=== PATIENT | male | born 1970 | race Native Hawaiian/Other Pacific Islander ===

== ENCOUNTER → 2020-09-07 09:23 | Outpatient (BNVA) | payer MEDICAID, SELFPAY | PROVIDERS: PCP Internal Medicine; Visit Provider Internal Medicine | DX: I87.1 Compression of vein (principal); Z51.81 Encounter for therapeutic drug level monitoring; Z79.01 Long term (current) use of anticoagulants | CPT/HCPCS: 85610 ==

== ENCOUNTER → 2020-10-05 09:26 | Outpatient (BNVA) | payer MEDICAID, SELFPAY | PROVIDERS: PCP Internal Medicine; Visit Provider Internal Medicine | DX: I87.1 Compression of vein (principal); Z51.81 Encounter for therapeutic drug level monitoring; Z79.01 Long term (current) use of anticoagulants | CPT/HCPCS: 85610; 99211 ==

== ENCOUNTER → 2020-10-12 10:21 | Outpatient (BNVA) | payer MEDICAID, SELFPAY | PROVIDERS: PCP Internal Medicine; Visit Provider Internal Medicine | DX: I87.1 Compression of vein (principal); Z51.81 Encounter for therapeutic drug level monitoring; Z79.01 Long term (current) use of anticoagulants | CPT/HCPCS: 85610; 99211 ==

== ENCOUNTER → 2020-11-09 10:32 | Outpatient (BNVA) | payer MEDICAID, SELFPAY | PROVIDERS: PCP Internal Medicine; Visit Provider Internal Medicine | DX: I87.1 Compression of vein (principal); Z51.81 Encounter for therapeutic drug level monitoring; Z79.01 Long term (current) use of anticoagulants | CPT/HCPCS: 85610; 99211 ==

== ENCOUNTER → 2020-12-07 08:57 | Outpatient (BNVA) | payer MEDICAID, SELFPAY | PROVIDERS: PCP Internal Medicine; Visit Provider Internal Medicine | DX: I87.1 Compression of vein (principal); Z51.81 Encounter for therapeutic drug level monitoring; Z79.01 Long term (current) use of anticoagulants | CPT/HCPCS: 85610; 99211 ==

== ENCOUNTER → 2021-01-04 08:59 | Outpatient (BNVA) | payer MEDICAID, SELFPAY | PROVIDERS: PCP Internal Medicine; Visit Provider Internal Medicine | DX: I87.1 Compression of vein (principal); Z51.81 Encounter for therapeutic drug level monitoring; Z79.01 Long term (current) use of anticoagulants | CPT/HCPCS: 85610; 99211 ==

== ENCOUNTER → 2021-02-01 09:01 | Outpatient (BNVA) | payer MEDICAID, SELFPAY | PROVIDERS: PCP Internal Medicine; Visit Provider Internal Medicine | DX: I87.1 Compression of vein (principal); Z51.81 Encounter for therapeutic drug level monitoring; Z79.01 Long term (current) use of anticoagulants | CPT/HCPCS: 85610; 99211 ==

== ENCOUNTER → 2021-03-01 09:00 | Outpatient (BNVA) | payer MEDICAID, SELFPAY | PROVIDERS: PCP Internal Medicine; Visit Provider Internal Medicine | DX: I87.1 Compression of vein (principal); Z51.81 Encounter for therapeutic drug level monitoring; Z79.01 Long term (current) use of anticoagulants | CPT/HCPCS: 85610; 99211 ==

== ENCOUNTER → 2021-03-29 08:57 | Outpatient (BNVA) | payer MEDICAID, SELFPAY | PROVIDERS: PCP Internal Medicine; Visit Provider Internal Medicine | DX: I87.1 Compression of vein (principal); Z51.81 Encounter for therapeutic drug level monitoring; Z79.01 Long term (current) use of anticoagulants | CPT/HCPCS: 85610; 99211 ==

== ENCOUNTER → 2021-04-12 09:28 | Outpatient (BNVA) | payer MEDICAID, SELFPAY | PROVIDERS: PCP Internal Medicine; Visit Provider Internal Medicine | DX: I87.1 Compression of vein (principal); Z51.81 Encounter for therapeutic drug level monitoring; Z79.01 Long term (current) use of anticoagulants | CPT/HCPCS: 85610; 99211 ==

== ENCOUNTER 2021-04-20 07:59 | Outpatient (REF) | payer MEDICAID, SELFPAY ==
[2021-04-20 08:37] LABS: Basophils Percent Auto 0.4 % (0-2); Eosinophils Absolute Auto 0.2 X10*3/uL (0.0-0.4); Eosinophils Percent Auto 3.2 % (0-4); Hematocrit 43.7 % (42-52); Hemoglobin 14.1 g/dl (14.0-18.0); Imm Gran Abs Auto 0.02 X10*3/uL (0.00-0.03); Imm Gran Pct Auto 0.4 % (0.0-0.4); Lymphocytes Absolute Auto 1.6 X10*3/uL (1.2-4.9); Lymphocytes Percent Auto 27.9 % (20-40); MANUAL DIFF FLAG NO; Mean Corpuscular HGB Conc 32.3 g/dl (31.0-36.0); Mean Corpuscular Hemoglobin 30.5 pg (27.0-33.0); Mean Corpuscular Volume 94.4 fL (80-98); Mean Platelet Volume 11.2 fL (9.4-12.4); Monocytes Absolute Auto 0.6 X10*3/uL (0.1-1.2); Monocytes Percent Auto 10.1 % (2-11); Neutrophils Absolute Auto 3.3 X10*3/uL (2.0-8.3); Platelet Count 161 X10*3/uL (160-400); Red Blood Count 4.63 X10*6/uL (4.60-5.80); Red Cell Distribution Width 13.2 % (11.0-16.0); White Blood Count 5.7 X10*3/uL (4.8-10.8)
[2021-04-20 08:56] LABS: Estimated Average Glucose 148 mg/dL; Hemoglobin A1c % 6.8 %
[2021-04-20 09:05] LABS: B Type Natriuretic Peptide 294 pg/mL (<100)
[2021-04-20 09:11] LABS: Alanine Aminotransferase 12 U/L (0-40); Albumin Level 4.3 g/dL (3.5-5.0); Alkaline Phosphatase 74 U/L (39-117); Anion Gap 11 (12-20); Aspartate Amino Transferase 15 U/L (5-37); Bilirubin Total 0.4 mg/dL (0.0-1.0); Blood Urea Nitrogen 16 mg/dL (9-16); Calcium 9.1 mg/dL (8.4-10.2); Carbon Dioxide 28 mmol/L (22-29); Chloride 106 mmol/L (96-108); Cholesterol 135 mg/dL; Estimated Glomerular Filt Rate > 60; Glucose Random 127 mg/dL (60-115); HDL Cholesterol 45 mg/dL; LDL Cholesterol Calculated 78 mg/dl; Potassium 4.5 mmol/L (3.3-5.1); Sodium 140 mmol/L (135-145); Total Protein 7.1 g/dL (6.5-8.0); Triglycerides 62 mg/dL
[2021-04-20 09:20] LABS: Free T4 (Free Thyroxine) 1.28 ng/dL (0.71-1.85); Prostate Specific Antigen Scr 2.53 ng/mL (<0.05-4.0); Thyroid Stimulating Hormone 0.79 uIU/mL (0.32-4.0)
[2021-04-20 09:37] LABS: Folate 12.7 ng/mL (> or = 4.0); Vitamin B12 650 pg/mL (200-900)
== END 2021-04-20 08:00 | disposition home or self-care (01) ==
LOC: HO.LAB 07:59
PROVIDERS: PCP Internal Medicine; Visit Provider Internal Medicine
DX: Z12.5 Encounter for screening for malignant neoplasm of prostate (principal); I48.0 Paroxysmal atrial fibrillation; E11.65 Type 2 diabetes mellitus with hyperglycemia; E78.00 Pure hypercholesterolemia, unspecified; I50.22 Chronic systolic (congestive) heart failure
CPT/HCPCS: 36415; 80053; 80061; 82607; 82746; 83036; 83880; 84153; 84439; 84443; 85025

== ENCOUNTER → 2021-05-03 08:55 | Outpatient (BNVA) | payer MEDICAID, SELFPAY | PROVIDERS: PCP Internal Medicine; Visit Provider Internal Medicine | DX: I87.1 Compression of vein (principal); Z51.81 Encounter for therapeutic drug level monitoring; Z79.01 Long term (current) use of anticoagulants | CPT/HCPCS: 85610; 99211 ==

== ENCOUNTER → 2021-05-31 09:09 | Outpatient (BNVA) | payer MEDICAID, SELFPAY | PROVIDERS: PCP Internal Medicine; Visit Provider Internal Medicine | DX: I87.1 Compression of vein (principal); Z51.81 Encounter for therapeutic drug level monitoring; Z79.01 Long term (current) use of anticoagulants | CPT/HCPCS: 85610; 99211 ==

== ENCOUNTER → 2021-06-28 08:56 | Outpatient (BNVA) | payer MEDICAID, SELFPAY | PROVIDERS: PCP Internal Medicine; Visit Provider Internal Medicine | DX: I87.1 Compression of vein (principal); Z51.81 Encounter for therapeutic drug level monitoring; Z79.01 Long term (current) use of anticoagulants | CPT/HCPCS: 85610; 99211 ==

== ENCOUNTER → 2021-07-26 09:07 | Outpatient (BNVA) | payer MEDICAID, SELFPAY | PROVIDERS: PCP Internal Medicine; Visit Provider Internal Medicine | DX: I87.1 Compression of vein (principal); Z51.81 Encounter for therapeutic drug level monitoring; Z79.01 Long term (current) use of anticoagulants | CPT/HCPCS: 85610; 99211 ==

== ENCOUNTER → 2021-08-23 13:04 | Outpatient (BNVA) | payer MEDICAID, SELFPAY | PROVIDERS: PCP Internal Medicine; Visit Provider Internal Medicine | DX: I87.1 Compression of vein (principal); Z51.81 Encounter for therapeutic drug level monitoring; Z79.01 Long term (current) use of anticoagulants | CPT/HCPCS: 85610; 99211 ==

== ENCOUNTER → 2021-09-20 13:02 | Outpatient (BNVA) | payer MEDICAID, SELFPAY | PROVIDERS: PCP Internal Medicine; Visit Provider Internal Medicine | DX: I87.1 Compression of vein (principal); Z51.81 Encounter for therapeutic drug level monitoring; Z79.01 Long term (current) use of anticoagulants | CPT/HCPCS: 85610; 99211 ==

== ENCOUNTER 2021-10-14 06:47 | Inpatient (IN) | payer MEDICARE, MEDICAID, SELFPAY ==
[2021-10-14] VITALS (19 sets, daily range): BP systolic 83–120; BP diastolic 43–93; PULSE 72–150; RESP 16–20; TEMP 36.6–37.2; O2SAT 90–97; BMI 28.7
--- NOTE | 2021-10-14 | ECG_ITS ---
Test Reason : RAPID HR Blood Pressure : / mmHG Vent. Rate : 146 BPM Atrial Rate : 146 BPM P-R Int : 100 ms QRS Dur : 144 ms QT Int : 324 ms P-R-T Axes : 010 119 110 degrees QTc Int : 504 ms Atrial-sensed ventricular-paced rhythm with rate increase Possible Atrial flutter with 2 to 1 block Intra-ventricular conduction delay Abnormal ECG When compared with ECG of 30-AUG-2015 11:03, Heart rate has increased Possible Atrial flutter with 2 to 1 block along with pacer spikes Clinical Correlation Advised Referred By: Generic ED Physician Electronically Signed By:ELEANOR HATFIELD MD
--- NOTE | ~2021-10-14 | XR_ITS ---
EXAMINATION: XR CHEST CLINICAL INFORMATION: Shortness of breath. Rule out congestive heart failure. COMPARISON: Chest x-rays of 08/30/2015, 08/06/2011. Chest CT of 03/17/2012. TECHNIQUE: 2 views of the chest were obtained. FINDINGS: Multiple cardiac leads and wires overlie the chest. A right-sided pacemaker is in place with the pacer leads terminating in the expected locations right atrium, right ventricle and coronary sinus. There is a right-sided aortic arch. Situs ambiguus is better appreciated on the previous chest CT. Cardiomediastinal silhouette and right-sided pacemaker with the pacer leads are unchanged in appearance compared to previous studies of 2014 and 2011. Mediastinal surgical clips are noted. Cardiomegaly. Stable biapical pleural thickening. The lungs are adequately expanded. Streaky opacities at the right lung base are not significantly changed compared to previous studies and likely represent scarring. No focal consolidation, changes of overt pulmonary edema or pleural effusions. No pneumothorax. XR/XR chest 2V IMPRESSION: 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 No radiographic evidence of pneumonia or overt pulmonary edema.
--- NOTE | ~2021-10-14 | XR_ITS ---
EXAMINATION: XR CHEST CLINICAL INFORMATION: Shortness of breath, cough, right CHF COMPARISON: Chest radiograph 10/14/2021 obtained at 0842 hours TECHNIQUE: Frontal view of the chest was obtained. FINDINGS: Leads overlie the chest in a slightly different orientation than on the previous study. Stable chronic changes are again noted. There may be subtle linear opacities at the bases and hazy airspace opacity at the right lower lung zone, otherwise no significant interval change. XR/XR chest 1V IMPRESSION: Possible increasing interstitial opacities as well as hazy opacity at the right base. No other interval change.
[2021-10-14 07:14] LABS: MANUAL DIFF FLAG NO
[2021-10-14 07:17] LABS: Basophils Percent Auto 0.4 % (0-2); Eosinophils Percent Auto 0.2 % (0-4); Hematocrit 45.4 % (42.0-52.0); Hemoglobin 14.7 g/dl (14.0-18.0); Imm Gran Abs Auto 0.02 X10*3/uL (0.00-0.03); Imm Gran Pct Auto 0.2 % (0.0-0.4); Lymphocytes Absolute Auto 1.7 X10*3/uL (1.2-4.9); Lymphocytes Percent Auto 19.3 % (20-40); Mean Corpuscular HGB Conc 32.4 g/dl (31.0-36.0); Mean Corpuscular Hemoglobin 29.9 pg (27.0-33.0); Mean Corpuscular Volume 92.5 fL (80.0-98.0); Mean Platelet Volume 11.1 fL (9.4-12.4); Monocytes Absolute Auto 0.5 X10*3/uL (0.1-1.2); Monocytes Percent Auto 5.7 % (2-11); Neutrophils Absolute Auto 6.3 x10*3/uL (2.0-8.3); Neutrophils Percent Auto 74.2 % (45-73); Platelet Count 193 X10*3/uL (160-400); Red Blood Count 4.91 X10*6/uL (4.60-5.80); Red Cell Distribution Width 13.4 % (11.0-16.0); White Blood Count 8.5 X10*3/uL (4.8-10.8)
[2021-10-14 07:43] LABS: B Type Natriuretic Peptide 1522 pg/mL (<100)
[2021-10-14] MEDS: dilTIAZem HCL 50 MG/10 ML VIAL 15 MG IVPUSH (07:51)
--- NOTE | 2021-10-14 08:04 | ED.ARRPALP ---
HPI - Arrhythmia/Palpitations General Chief Complaint: Arrhythmia/Palpitations Stated Complaint: cough, rapid heartbeat, has pacemaker Time Seen by Provider: 10/14/21 07:26 Source: patient and family Mode of arrival: ambulatory Limitations: no limitations History of Present Illness HPI narrative: 51-year-old male with a history of congenital heart disease, CHF and atrial fibrillation who presents emergency department for evaluation of palpitations. Patient states he woke up this morning he felt his heart was beating fast. He denied chest pain, shortness of breath, lightheadedness or dizziness. He states that he has not been feeling well over the past week. States that he has had a vague, upset stomach and has been feeling tired and fatigued. States that he has had nausea and occasional cough with no vomiting. He denied fever, chills, rhinorrhea or sore throat. He denied myalgias or arthralgias. He denied diarrhea or change in his bowel movements. The patient states he had similar palpitations in 2011 before he got his pacemaker placed. The patient is on warfarin. Because of his congenital heart disease, His social human services assistants is Dr. Dukes at [facility]. 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 status post subsequent repair of ASD closure VSD patch, LV to PA conduit Related Data Home Medications Medication Instructions Recorded Confirmed furosemide 40 mg tablet 40 mg PO DAILY 10/14/21 10/14/21 Previous Rx's Medication Instructions Recorded warfarin 7.5 mg tablet (Jantoven) 7.5 mg PO DAILY #90 cap 02/18/21 Oxygen Home Use #1 ea 03/09/21 metformin 500 mg tablet 500 mg PO BID 90 Days #180 cap 03/20/21 simvastatin 5 mg tablet 5 mg PO BEDTIME 90 Days #90 cap 03/20/21 potassium chloride 20 mEq 20 meq PO DAILY 90 Days #90 cap 06/16/21 tablet,extended release(part/cryst) Allergies Allergy/AdvReac Type Severity Reaction Status Date / Time No Known Allergies Allergy Verified 08/23/21 13:07 Review of Systems Review of Systems: Yes all other systems are reviewed and are negative PMFSH Past Medical History Medical History Acute thrombosis of brachiocephalic (innominate) vein Atrial fibrillation Colonoscopy refused Congenital heart disease Congestive heart failure Erectile dysfunction Hypercholesterolemia Obesity (BMI 30-39.9) Obstructive sleep apnea SVC syndrome Type 2 diabetes mellitus with hyperglycemia Vitamin D deficiency Surgical History Cardiac pacemaker battery worn out H/O cardiac radiofrequency ablation History of cholecystectomy Status post cardiac surgery Family History Family History Father No problems noted. Mother Diabetes Son Autism Social History Social History Smoked in Last 30 Days: No Use of substances other than those prescribed or required for medical reasons: No Advance Directives: No Physical Exam Vital Signs: Vital Signs: Last Vital Signs Temp 97.9 F 10/14/21 12:00 Pulse 104 H 10/14/21 14:37 Resp 18 10/14/21 14:37 BP 104/56 L 10/14/21 14:37 Pulse Ox 91 L 10/14/21 14:37 Oxygen Flow Rate 3 10/14/21 11:46 Body Mass Index 28.7 Const: General: cooperative and no acute distress Orientation/consciousness: oriented to person and oriented to place Limitations: no limitations HENMT: Head: Yes normal to inspection, Yes normocephalic and Yes atraumatic Ears: external ears normal General nose exam: Normal external nose present Face and sinus: Yes normal facial exam Mouth: Normal oral and palatal mucosa present Throat: Yes posterior oropharynx normal Eyes: General: appearance normal, both eyes and all related structures Pupils: Equal, round and reactive pupils present Neck: Neck: Yes normal visual inspection, Yes no lymphadenopathy, Yes trachea midline and Yes supple Chest: Chest palpation & inspection: normal inspection of the chest and normal palpation of entire chest wall Resp: Effort & Inspection: normal respiratory effort and able to speak in complete sentences Auscultation: clear to auscultation bilaterally Cardio: Rate: tachycardic Rhythm: regular rhythm Heart sounds: S1 normal heart sound present, S2 normal heart sound present and no murmurs GI: Inspection: Yes normal to inspection Palpation (GI): Soft to palpation, nontender and no guarding Auscultation: normal bowel sounds : General: Yes no CVA tenderness Back/Spine/Pelvis: Back: no CVA tenderness Skin: General skin exam: no rashes or lesions noted Neuro: General: oriented to person and oriented to place Cranial nerves: Yes CN's II-XII intact bilaterally and Yes Equal, round and reactive pupils present Cognition (Neuro): normal cognition Motor exam (neuro): 5/5 motor strength present throughout Extrem: General: Yes normal to inspection Psych: Appearance: grossly normal Speech and movement: Normal speech and movement present Affect: normal affect Attitude: cooperative Thought process: Normal thought process present Thought content: Normal thought content present Course Course Course Narrative: 51-year-old male with congenital heart defect, atrial fibrillation on warfarin, CHF who presents emergency department for evaluation of several days of they weakness, fatigue nausea and nonproductive cough who woke up this morning with rapid heart rate. Vital signs revealed a rapid heart rate of 147 otherwise unremarkable. Physical examination is consistent with a rapid regular heart rate otherwise was unremarkable as well. I did order a cardiac workup to include CBC, BMP, liver tests, troponin, BNP, COVID-19, influenza and RSV, EKG. 0822: EKG: Patient has a wide complex tachycardia with a rate of 146, QRS duration of 144 milliseconds and QTC of 504 milliseconds, I suspect that this is atrial flutter with aberrancy. Laboratory evaluation : CBC was normal. BUN is elevated at 28 with an elevated creatinine of 1.61 and GFR 45compared to 16 and 1.03 with a GFR greater than 60 on 04/20/2020. Glucose was elevated 200. High sensitivity troponin I was elevated at 547 ( normal is less than 3.5-35). BNP is elevated 1522 ( normal is less than 100). Patient was initially treated with diltiazem 15 mg IV with no effect, he was ordered to get diltiazem 20 mg IV. Concerned the patient may have myocardial injury given his elevated high sensitivity troponin I and BNP. I will repeat a 3 hour high sensitivity troponin I. Patient's PT/ INR PTT, LFTs and chest x-ray are pending. 0947: patient's heart rate did not respond to the above treatment, he received a 3rd diltiazem bolus of 20 mg IV. I started diltiazem drip. I did discuss the patient's presentation with our covering social human services assistants, Mari Camilo. he was able to review the EKG and he believes that the patient is in atrial flutter. He recommended that we stop the diltiazem drip and he will evaluate the patient in the emergency department. 11 50: The patient was seen by our social human services assistants, Dr Harris who discuss the patient's presentation with his social human services assistants Dr. Dukes. The patient has had therapeutic INR and it was felt that would be safe to cardiovert the patient in emergency department the patient was given procedural sedation by me with fentanyl 50 mg IV and propofol 40 mg IV x2 doses. The patient was then cardioverted by Dr. Foster using 200 joules of biphasic electricity with successful cardioversion. Patient's repeat 12 EKG revealed a paced rhythm with a rate of 80. The patient tolerated the procedure well had a very brief episode apnea based on his end-tidal CO2 monitor. The respiratory therapist and gait him several breaths with a bag-valve mask ( less than 60 seconds). the patient tolerated the procedure well, he had no pain after the procedure and no memory procedure. Patient's repeat high sensitivity troponin I was 511 which was lower than the 1st troponin. I did discuss this with our social human services assistants and he felt that the patient did not have myocardial injury /[place] and that we could discharge the patient home with no change in his medications. 1443: the patient developed dyspnea while he was being observed. I did re-evaluate him in the patient's lung exam revealed diffuse rhonchi with no wheezing. Repeat chest x-ray is concerning for increased interstitial markings, I am concerned that the patient is in congestive heart failure. I did discuss this with Dr. Foster and the patient will be admitted for further treatment. 1540: Patient was initially given Lasix 40 mg IV with only 200 cc of urine output. Patient states that at home he will take Lasix 40-80 mg based on his symptoms. Therefore the patient was given another dose of Lasix 40 mg IV. The patient's presentation was discussed with the covering hospitalist the patient will be admitted to intermediate care for further management. MDM - Arrhythmia/Palpitations Lab Data Result diagrams: 10/14/21 07:10 10/14/21 07:10 Labs: Lab Results 10/14/21 10/14/21 10/14/21 Range/Units 07:10 07:10 07:10 WBC 8.5 (4.8-10.8) X10*3/uL RBC 4.91 (4.60-5.80) X10*6/uL Hgb 14.7 (14.0-18.0) g/dl Hct 45.4 (42.0-52.0) % MCV 92.5 (80.0-98.0) fL MCH 29.9 (27.0-33.0) pg MCHC 32.4 (31.0-36.0) g/dl RDW 13.4 (11.0-16.0) % Plt Count 193 (160-400) X10*3/uL MPV 11.1 (9.4-12.4) fL Immature Gran % (Auto) 0.2 (0.0-0.4) % Neut % (Auto) 74.2 H (45-73) % Lymph % (Auto) 19.3 L (20-40) % [place] % (Auto) 5.7 (2-11) % Eos % (Auto) 0.2 (0-4) % Baso % (Auto) 0.4 (0-2) % Lymph # (Auto) 1.7 (1.2-4.9) X10*3/uL [place] # (Auto) 0.5 (0.1-1.2) X10*3/uL Eos # (Auto) 0.0 (0.0-0.4) X10*3/uL Baso # (Auto) 0.0 (0.0-0.2) X10*3/uL Abs Immat Gran (auto) 0.02 (0.00-0.03) X10*3/uL Absolute Neuts (auto) 6.3 (2.0-8.3) x10*3/uL Absolute Nucleated RBC 0.000 (0.0-0.012) X10*3/uL Nucleated RBC % (auto) 0.0 (0.0-0.2) /100WBC PT (9.9-13.0) SEC INR (0.9-1.1) APTT (24.1-38.0) SEC Sodium 139 (135-145) mmol/L Potassium 4.1 (3.3-5.1) mmol/L Chloride 103 (96-108) mmol/L Carbon Dioxide 23 (22-29) mmol/L Anion Gap 17 (12-20) BUN 30 H D (9-16) mg/dL Creatinine 1.58 H (0.5-1.4) mg/dL Estim Creat Clear Calc 54.5 Estimated GFR 46 Random Glucose 197 H D (60-115) mg/dL Calcium 9.1 (8.4-10.2) mg/dL Total Bilirubin 1.2 H (0.0-1.0) mg/dL Direct Bilirubin 0.5 (0.0-0.5) mg/dL AST 20 (5-37) U/L ALT 17 (0-40) U/L Alkaline Phosphatase 69 (39-117) U/L Troponin I High Sens 547.0 H* (<3.5-35.0) ng/L B-Natriuretic Peptide 1522 H (<100) pg/mL Total Protein 7.3 (6.5-8.0) g/dL Albumin 4.4 (3.5-5.0) g/dL Influenza Type A (PCR) (Negative) Influenza Type B (PCR) (Negative) RSV RNA Qual (PCR) (Negative) SARS-CoV-2 RNA (RT-PCR) (Negative) 10/14/21 10/14/21 10/14/21 Range/Units 07:56 08:10 10:01 WBC (4.8-10.8) X10*3/uL RBC (4.60-5.80) X10*6/uL Hgb (14.0-18.0) g/dl Hct (42.0-52.0) % MCV (80.0-98.0) fL MCH (27.0-33.0) pg MCHC (31.0-36.0) g/dl RDW (11.0-16.0) % Plt Count (160-400) X10*3/uL MPV (9.4-12.4) fL Immature Gran % (Auto) (0.0-0.4) % Neut % (Auto) (45-73) % Lymph % (Auto) (20-40) % [place] % (Auto) (2-11) % Eos % (Auto) (0-4) % Baso % (Auto) (0-2) % Lymph # (Auto) (1.2-4.9) X10*3/uL [place] # (Auto) (0.1-1.2) X10*3/uL Eos # (Auto) (0.0-0.4) X10*3/uL Baso # (Auto) (0.0-0.2) X10*3/uL Abs Immat Gran (auto) (0.00-0.03) X10*3/uL Absolute Neuts (auto) (2.0-8.3) x10*3/uL Absolute Nucleated RBC (0.0-0.012) X10*3/uL Nucleated RBC % (auto) (0.0-0.2) /100WBC PT 48.1 H (9.9-13.0) SEC INR 4.1 H (0.9-1.1) APTT 46.2 H (24.1-38.0) SEC Sodium (135-145) mmol/L Potassium (3.3-5.1) mmol/L Chloride (96-108) mmol/L Carbon Dioxide (22-29) mmol/L Anion Gap (12-20) BUN (9-16) mg/dL Creatinine (0.5-1.4) mg/dL Estim Creat Clear Calc Estimated GFR Random Glucose (60-115) mg/dL Calcium (8.4-10.2) mg/dL Total Bilirubin (0.0-1.0) mg/dL Direct Bilirubin (0.0-0.5) mg/dL AST (5-37) U/L ALT (0-40) U/L Alkaline Phosphatase (39-117) U/L Troponin I High Sens 511.6 H* (<3.5-35.0) ng/L B-Natriuretic Peptide (<100) pg/mL Total Protein (6.5-8.0) g/dL Albumin (3.5-5.0) g/dL Influenza Type A (PCR) NEGATIVE (Negative) Influenza Type B (PCR) NEGATIVE (Negative) RSV RNA Qual (PCR) NEGATIVE (Negative) SARS-CoV-2 RNA (RT-PCR) NEGATIVE (Negative) ECG Data Attestation: I personally reviewed and interpreted this ECG as follows: Interpretation: 0703: Like complex tachycardia with a rate of 146, prolonged QRS of 144 milliseconds, prolonged QTC of 504 milliseconds, no ST segment elevation, no ST segment depression, inverted T-waves V1 through V5, this is consistent with atrial flutter with a rapid ventricular response with aberrancy. 1144: Repeat 12 EKG after cardioversion: AV dual paced rhythm with a rate of 80 Procedures Procedure Narrative Procedure Narrative: Cardioversion for atrial flutter with rapid ventricular response: The patient gave me informed written consent for cardioversion and procedural sedation with fentanyl and propofol. The patient was placed on a cardiac, pulse ox and end-tidal CO2 monitor. The patient was connected to the defibrillator. Defibrillator pads were placed on the patient's anterior and posterior chest. The defibrillator was placed in synchronized cardioversion mode. Physical examination was done prior to the procedure including ASA and Mallampati score. A time-out was performed prior to the procedure. The patient was given fentanyl 50 mg IV by the nurse and I gave the patient propofol 40 mg IV and the patient required a 2nd dose 40 mg IV in order to obtain sufficient sedation. The patient was then cardioverted with 200 joules of biphasic electricity. The patient was successfully cardioverted and his rate went down to 80, repeat 12 EKG revealed an AV paced rhythm at 80 beats per minute. The patient had a brief episode apnea treated with and a brief episode hypotension off-xffen-gtor for less than 60 seconds and hypotension secondary to the propofol treated with normal saline IV x1. Patient was observed until he was awake and alert and back to his baseline. Procedural Sedation Indication: other ( atrial flutter with rapid ventricular response) ASA Class: I Mallampati Class: I Preparation: shelter monitor applied, pulse oximeter, capnometry used, supplemental O2 applied, suction/airway equipment at bedside and IV secured Fentanyl: IV Fentanyl dose (mcg): 50 IV Propofol dose (mg): 80 Patient Tolerated Procedure: well Complications: hypoventilation ( brief less than 60 seconds) Interventions: assist by BVM Additional Comments: Patient also had hypotension after the procedure and was treated with normal saline IV x 1 L Critical Care Time Critical Care Time Critical Care Time: Yes Total Critical Care Time: 75 Attestation: Critical Care: The patient was critically ill with a high probability of imminent or life threatening deterioration. I spent greater than 30 minutes of discontinuous time evaluating the patient,delivering critical care at the bedside, discussing and evaluating pertinent data with consultants. Critical care time does not include time spent performing separately billable procedures or teaching. Total time spent performing critical care was 75 minutes. Discharge Plan Discharge Clinical Impression: Encounter for cardioversion procedure, Adequate anticoagulation on anticoagulant therapy, Adult congenital heart disease, Atrial flutter with rapid ventricular response Congestive heart disease Qualifiers: Heart failure type: unspecified Heart failure chronicity: acute Qualified Code(s): I50.9 - Heart failure, unspecified Patient Disposition: Admitted As Inpatient Additional Instructions: Your 12 EKG revealed atrial flutter with a rapid ventricular response. Your heart rate was 150. We were unable to slow your heart rate down with IV diltiazem. You were given procedural sedation with fentanyl 50 mg IV and propofol mg IV. Your then cardioverted with 200 joules of biphasic electricity without any complications. Your the high sensitivity troponin I was elevated at 547 but the repeat 3 hour high sensitivity troponin I was 511 which is reassuring since this did not increased. At this time, our social human services assistants, Dr. Mack and I do not think that you had a heart attack. Your INI was slightly high at 4.1 you should discuss this value with your provider that manages your warfarin/Coumadin to decide if you need to change your dose. Until you talk to your provider keep on the same dose. Follow-up with your doctor in 2 days. Please return to the emergency department if your symptoms get worse or if you develop any symptoms that are concerning to you.
[2021-10-14] MEDS: dilTIAZem HCL 50 MG/10 ML VIAL 20 MG IVPUSH ×2 (08:11→09:15)
[2021-10-14 08:23] LABS: INTERNATIONAL NORM RATIO 4.1 (0.9-1.1); Prothrombin Time 48.1 SEC (9.9-13.0)
[2021-10-14 08:24] LABS: Alanine Aminotransferase 17 U/L (0-40); Albumin Level 4.4 g/dL (3.5-5.0); Alkaline Phosphatase 69 U/L (39-117); Aspartate Amino Transferase 20 U/L (5-37); Bilirubin Direct 0.5 mg/dL (0.0-0.5); Bilirubin Total 1.2 mg/dL (0.0-1.0); Total Protein 7.3 g/dL (6.5-8.0)
[2021-10-14 08:25] LABS: Partial Thromboplastin Time 46.2 SEC (24.1-38.0)
--- NOTE | 2021-10-14 09:10 | ECG_ITS ---
Test Reason : TACHYCARDIA Blood Pressure : / mmHG Vent. Rate : 080 BPM Atrial Rate : 080 BPM P-R Int : 162 ms QRS Dur : 156 ms QT Int : 456 ms P-R-T Axes : 212 104 035 degrees QTc Int : 525 ms AV dual-paced rhythm Abnormal ECG When compared with ECG of 14-OCT-2021 07:03, Vent. rate has decreased BY 66 BPM Referred By: Mukesh Wilhelm Electronically Signed By:ELEANOR HATFIELD MD
[2021-10-14] MEDS: dilTIAZem HCL 125 MG in 0.9 % Sodium Chloride 100 ML IVCONT (09:24)
[2021-10-14 09:31] LABS: Influenza A PCR NEGATIVE (Negative); Influenza B PCR NEGATIVE (Negative); Resp Syncy Virus RNA Qual PCR NEGATIVE (Negative); SARS COV2 PCR INHOUSE NEGATIVE (Negative)
--- NOTE | 2021-10-14 09:48 | PC.NURSE ---
cardizem drip turned off. awaiting for physiatrist to come see patient.
--- NOTE | 2021-10-14 10:21 | P.CONCA_ITS ---
History of Present Illness History of Present Illness Date of Service: 10/14/21 Requesting physician: Mukesh Wilhelm Chief complaint: atrial flutter Narrative: 51-year-old with 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 He is presenting now for palpitations and fatigue. He has acute kidney injury, mildly elevated troponin levels and he has been in atrial flutter with heart rate of 150s. He has no shortness of breath. Clinically not volume overloaded or in heart failure. He said previously had palpitations at 1 stage and underwent cardioversion. He has been on Coumadin. His INR is therapeutic. Looking back is INRs were therapeutic till June 2021. [facility] Past Medical History Medical History Acute thrombosis of brachiocephalic (innominate) vein Atrial fibrillation Colonoscopy refused Congenital heart disease Congestive heart failure Erectile dysfunction Hypercholesterolemia Obesity (BMI 30-39.9) Obstructive sleep apnea SVC syndrome Type 2 diabetes mellitus with hyperglycemia Vitamin D deficiency Family History Family History (Updated 11/02/20 @ 10:45 by Cyndy Weiss [facility]) Father No problems noted. Mother Diabetes Son Autism Surgical History Surgical History Cardiac pacemaker battery worn out H/O cardiac radiofrequency ablation History of cholecystectomy Status post cardiac surgery Social History Social History Smoked in Last 30 Days: No Use of substances other than those prescribed or required for medical reasons: No Advance Directives: No Meds Allergies Allergy/AdvReac Type Severity Reaction Status Date / Time No Known Allergies Allergy Verified 08/23/21 13:07 Active Medications: Current Medications Diltiazem HCl 125 mg/ Sodium (Chloride) 125 mls @ 0 mls/hr IVCONT .Q0M TRISTEN; Protocol Last Titration: 10/14/21 09:49 Dose: 0 mg/hr, 0 mls/hr Documented by: Home Medications Medication Instructions Recorded Confirmed Last Taken Type POMEGRANET AND CHERYY JUICE PO 04/12/21 09/20/21 Unknown History VITAMIN D 50,000 MCG PO 04/12/21 09/20/21 Unknown History Physical Exam Vital Signs: Vital Signs: Last Vital Signs Temp 98.7 F 10/14/21 10:03 Pulse 146 H 10/14/21 10:03 Resp 19 10/14/21 10:03 BP 115/93 H 10/14/21 10:03 Pulse Ox 96 10/14/21 10:03 Body Mass Index 28.7 GENERAL APPEARANCE: in no acute distress, pleasant. NECK: no carotid bruit, no jugular venous distention. SKIN: no suspicious lesions, warm and dry. HEART: Systolic murmur in the pulmonic area. Tachycardia. LUNGS: clear to auscultation bilaterally. ABDOMEN: soft, nontender. EXTREMITIES: no edema. PERIPHERAL PULSES: equal. NEUROLOGIC: No gross deficits, AAO X 3 Objective Labs and Meds Result diagrams: 10/14/21 07:10 10/14/21 07:10 Lab results: Laboratory Results - last 24 hr 10/14/21 10/14/21 10/14/21 07:10 07:10 07:10 WBC 8.5 RBC 4.91 Hgb 14.7 Hct 45.4 MCV 92.5 MCH 29.9 MCHC 32.4 RDW 13.4 Plt Count 193 MPV 11.1 Immature Gran % (Auto) 0.2 Neut % (Auto) 74.2 H Lymph % (Auto) 19.3 L [place] % (Auto) 5.7 Eos % (Auto) 0.2 Baso % (Auto) 0.4 Lymph # (Auto) 1.7 [place] # (Auto) 0.5 Eos # (Auto) 0.0 Baso # (Auto) 0.0 Abs Immat Gran (auto) 0.02 Absolute Neuts (auto) 6.3 Absolute Nucleated RBC 0.000 Nucleated RBC % (auto) 0.0 PT INR APTT Sodium 139 Potassium 4.1 Chloride 103 Carbon Dioxide 23 Anion Gap 17 BUN 30 H D Creatinine 1.58 H Estim Creat Clear Calc 54.5 Estimated GFR 46 Random Glucose 197 H D Calcium 9.1 Total Bilirubin 1.2 H Direct Bilirubin 0.5 AST 20 ALT 17 Alkaline Phosphatase 69 Troponin I High Sens 547.0 H* B-Natriuretic Peptide 1522 H Total Protein 7.3 Albumin 4.4 Influenza Type A (PCR) Influenza Type B (PCR) RSV RNA Qual (PCR) SARS-CoV-2 RNA (RT-PCR) 10/14/21 10/14/21 07:56 08:10 WBC RBC Hgb Hct MCV MCH MCHC RDW Plt Count MPV Immature Gran % (Auto) Neut % (Auto) Lymph % (Auto) [place] % (Auto) Eos % (Auto) Baso % (Auto) Lymph # (Auto) [place] # (Auto) Eos # (Auto) Baso # (Auto) Abs Immat Gran (auto) Absolute Neuts (auto) Absolute Nucleated RBC Nucleated RBC % (auto) PT 48.1 H INR 4.1 H APTT 46.2 H Sodium Potassium Chloride Carbon Dioxide Anion Gap BUN Creatinine Estim Creat Clear Calc Estimated GFR Random Glucose Calcium Total Bilirubin Direct Bilirubin AST ALT Alkaline Phosphatase Troponin I High Sens B-Natriuretic Peptide Total Protein Albumin Influenza Type A (PCR) NEGATIVE Influenza Type B (PCR) NEGATIVE RSV RNA Qual (PCR) NEGATIVE SARS-CoV-2 RNA (RT-PCR) NEGATIVE Imaging Radiologist's impression: Impressions Chest X-Ray 10/14/21 07:30 IMPRESSION: 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 No radiographic evidence of pneumonia or overt pulmonary edema. Assessment and Plan (1) Atrial flutter with rapid ventricular response: Status: Acute Pleasant 51-year-old gentleman with congenital heart disease who follows with Dr. Dukes in [place] who is here for palpitations and fatigue. He has atrial flutter with rapid ventricular response. He has been feeling fatigued for few days and I think this has been present for couple days. Looking at his INR is the happen therapeutic going back to June. I discussed the case with Dr. Dukes who agreed to perform cardioversion without transesophageal echocardiography given therapeutic INRs. We will proceed with that. Once his cardioverted depending on his clinical situation he can go home and follow up with Dr. Dukes as outpatient Thank you for allowing me to participate in the care of your patient. Please feel free to contact me if you have any questions. Procedures Date of Service Date of Service: 10/14/21
[2021-10-14 10:55] LABS: Troponin-I High Sensitivity 511.6 ng/L (<3.5-35.0)
--- NOTE | 2021-10-14 11:00 | PC.NURSE ---
[address] ryan 1115 50 mcg fentanyl given ivp 1116 p 150, 95% 2L O2 nc, rr 19, bp 109/76 1135: 40 mg propof[address] given by dr ryan 1135 cardiology at bedside- Dr. Foster- pads placed to patients chest and back by cardiology- p150, 96% 2L O2, 18 RR, BP 117/68 [address] ryan 1136- [place] set at 200J, bed cleared- patient cardioverted 1137- p 82, p 77/32, rr 7, etco2- 35 1140- RT bagging patient, IVF spiked 500ML 1140- ekg being performed- pt AV paced 1140- rt switched patient over to NC, 3L 97%, p 81, BP 72/41, ETCO2 35 1141- p 80, 96% 3L o2, ET 36. RR 12 1146 pt woke, p 80, 97% now on 3L O2 NC, 89/43 1155- pt awake, speaking in full sentences, family at bedside, bp continues to be soft, no c/o pain or discomfort at this time, will continue to monitor.
[2021-10-14] MEDS: fentaNYL citrate/PF 100 MCG/2 ML VIAL 50 MCG IVPUSH (11:15)
[2021-10-14] MEDS: propofoL 200 MG/20 ML VIAL 160 MG IVPUSH (11:49)
--- NOTE | 2021-10-14 12:18 | PC.NURSE ---
patient a&ox3, monitoring tech paced 90s, no c/o pain or discomfort, bp continues to be soft- provider notified, vitals otherwise stable, will continue to monitor.
--- NOTE | 2021-10-14 13:15 | PC.NURSE ---
patient a&ox3, monitor worker paced 100s, pt coughing productive cough with rhonchi throughout, pt states he didnt take his lasix this morning, will notify provider and continue to monitor.
[2021-10-14] MEDS: Furosemide 40 MG/4 ML VIAL IVPUSH ×3 (13:29→19:39)
--- NOTE | 2021-10-14 13:30 | PC.NURSE ---
patient medicated with lasix per order
--- NOTE | 2021-10-14 14:34 | PC.NURSE ---
Addendum entered by Rosaura Menjivar RN 10/14/21 14:41: while patient standing at bedside, pts O2 sat dropped to 89% with 3L, pt increased to 3.5 liters. Original Note: patient standing at bedside attempting to urinate,
--- NOTE | 2021-10-14 15:16 | PM.IMHP ---
History of Present Illness Date of Service: 10/14/21 Chief Complaint: Palpitations, SOB A 51 years old male with PMH of AFib, congenital heart disease, CHF, MELBA, type 2 diabetes among others who presented to the hospital with palpitation and shortness of breath. He reports he has been having difficulties with breathing and palpitation for the last 3 days worsening today to level were he felt fatigued and unable to do much. In the emergency he was noted to have atrial flutter with heart rate in 150s. Evaluated by Cardiology in the emergency as cardioversion was done after failure to respond to medications. He was noted to have acute kidney injury as well with mild troponin elevation. Chest x-ray showed evidence of heart failure with elevated BNP Admitted for further evaluation and treatment. Review of Systems Review of Systems: No fever, chills but generalized weakness No chest pain, but complaining of palpitation Exertion shortness of breath or coughing No abdominal pain, nausea or vomiting No urinary symptoms No any rash or wounds [facility] Medical History Acute thrombosis of brachiocephalic (innominate) vein Atrial fibrillation Colonoscopy refused Congenital heart disease Congestive heart failure Erectile dysfunction Hypercholesterolemia Obesity (BMI 30-39.9) Obstructive sleep apnea SVC syndrome Type 2 diabetes mellitus with hyperglycemia Vitamin D deficiency Family History Father No problems noted. Mother Diabetes Son Autism Surgical History Cardiac pacemaker battery worn out H/O cardiac radiofrequency ablation History of cholecystectomy Status post cardiac surgery Social History Smoked in Last 30 Days: No Use of substances other than those prescribed or required for medical reasons: No Advance Directives: No Meds Allergies Allergy/AdvReac Type Severity Reaction Status Date / Time No Known Allergies Allergy Verified 08/23/21 13:07 Active Medications: Current Medications Diltiazem HCl 125 mg/ Sodium (Chloride) 125 mls @ 0 mls/hr IVCONT .Q0M TRISTEN; Protocol Last Titration: 10/14/21 09:49 Dose: 0 mg/hr, 0 mls/hr Documented by: Home Medications Medication Instructions Recorded Confirmed Last Taken Type furosemide 40 mg tablet 40 mg PO DAILY 10/14/21 10/14/21 Unknown History Physical Exam Vital Signs and Narrative: Vital Signs: Last Vital Signs Temp 97.9 F 10/14/21 12:00 Pulse 104 H 10/14/21 14:37 Resp 18 10/14/21 14:37 BP 104/56 L 10/14/21 14:37 Pulse Ox 91 L 10/14/21 14:37 Oxygen Flow Rate 3 10/14/21 11:46 Body Mass Index 28.7 Const: Other: Constitutional : Alert, oriented, not in distress Neck : Normal inspection, Supple Cardiovascular : Irregular regular, S1 S2, no lower extremity edema Respiratory : Fair bilateral air entry, bilateral basal crackles, bilateral rhonchi Gastrointestinal: soft, lax, Normal bowel sounds, Non tender Skin : Warm, Dry Neurological : Alert & oriented x3, No focal deficit Results Labs CBC and Chem 7: 10/14/21 07:10 10/14/21 07:10 Labs: Laboratory Results - last 24 hr 10/14/21 10/14/21 10/14/21 07:10 07:10 07:10 MCV 92.5 MCH 29.9 MCHC 32.4 RDW 13.4 Plt Count 193 MPV 11.1 Immature Gran % (Auto) 0.2 Neut % (Auto) 74.2 H Lymph % (Auto) 19.3 L Fleming % (Auto) 5.7 Eos % (Auto) 0.2 Baso % (Auto) 0.4 Lymph # (Auto) 1.7 Fleming # (Auto) 0.5 Eos # (Auto) 0.0 Baso # (Auto) 0.0 Abs Immat Gran (auto) 0.02 Absolute Neuts (auto) 6.3 Absolute Nucleated RBC 0.000 Nucleated RBC % (auto) 0.0 PT INR APTT Anion Gap 17 Estim Creat Clear Calc 54.5 Estimated GFR 46 Random Glucose 197 H D Calcium 9.1 Total Bilirubin 1.2 H Direct Bilirubin 0.5 AST 20 ALT 17 Alkaline Phosphatase 69 Troponin I High Sens 547.0 H* B-Natriuretic Peptide 1522 H Total Protein 7.3 Albumin 4.4 Influenza Type A (PCR) Influenza Type B (PCR) RSV RNA Qual (PCR) SARS-CoV-2 RNA (RT-PCR) 10/14/21 10/14/21 10/14/21 07:56 08:10 10:01 MCV MCH MCHC RDW Plt Count MPV Immature Gran % (Auto) Neut % (Auto) Lymph % (Auto) Fleming % (Auto) Eos % (Auto) Baso % (Auto) Lymph # (Auto) Fleming # (Auto) Eos # (Auto) Baso # (Auto) Abs Immat Gran (auto) Absolute Neuts (auto) Absolute Nucleated RBC Nucleated RBC % (auto) PT 48.1 H INR 4.1 H APTT 46.2 H Anion Gap Estim Creat Clear Calc Estimated GFR Random Glucose Calcium Total Bilirubin Direct Bilirubin AST ALT Alkaline Phosphatase Troponin I High Sens 511.6 H* B-Natriuretic Peptide Total Protein Albumin Influenza Type A (PCR) NEGATIVE Influenza Type B (PCR) NEGATIVE RSV RNA Qual (PCR) NEGATIVE SARS-CoV-2 RNA (RT-PCR) NEGATIVE Imaging Radiologist's Impressions: Impressions Chest X-Ray 10/14/21 07:30 IMPRESSION: 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 No radiographic evidence of pneumonia or overt pulmonary edema. Chest X-Ray 10/14/21 13:15 IMPRESSION: Possible increasing interstitial opacities as well as hazy opacity at the right base. No other interval change. Assessment and Plan (1) Atrial flutter with rapid ventricular response: Status: Acute (2) Type 2 diabetes mellitus with hyperglycemia: Qualifiers: Diabetes mellitus chcf insulin use: without chcf use Qualified Code(s): E11.65 - Type 2 diabetes mellitus with hyperglycemia Status: Acute (3) Congestive heart failure: Qualifiers: Heart failure type: systolic Heart failure chronicity: chronic Qualified Code(s): I50.22 - Chronic systolic (congestive) heart failure Status: Acute A 51 years old male with PMH of AFib, congenital heart disease, CHF, MELBA, type 2 diabetes among others who presented to the hospital with palpitation and shortness of breath. Acute hypoxic respiratory failure 2/2 Acute on chronic CHF exacerbation Requiring 3 L of oxygen to keep O2 above 90 Elevated BNP, CXR showing extra fluids Start IV Lasix Monitor intake and output O2 supplement as needed, wean down as tolerated Cardiology consult Atrial flutter with RVR Responded well to cardioversion Pacemaker sitting reset Warfarin on hold, INR of for now to monitor Type 2 diabetes with hyperglycemia Hold metformin SSI DVT PPX Warfarin Quality Stroke Does the patient have a stroke diagnosis?: No VTE Prior VTE?: No VTE Risk Level:: Medical - low VTE Device Contraindication: Treatment Not Indicated VTE Drug Contraindication: Treatment Not Indicated
[2021-10-14 15:56] LABS: Sodium 139 mmol/L (135-145)
[2021-10-14 15:57] LABS: Anion Gap 17 (12-20); Blood Urea Nitrogen 30 mg/dL (9-16); Carbon Dioxide 23 mmol/L (22-29); Chloride 103 mmol/L (96-108); Potassium 4.1 mmol/L (3.3-5.1)
[2021-10-14 15:58] LABS: Calcium 9.1 mg/dL (8.4-10.2); Creatinine Clr Calc Pharmacy 54.5; Estimated Glomerular Filt Rate 46; Glucose Random 197 mg/dL (60-115)
[2021-10-14 16:32] LABS: Glucose, Whole Blood 163 mg/dL (60-115)
[2021-10-14] MEDS: Insulin Lispro 100 UNIT/ML 3 ML VIAL SUBCUT ×2 (18:45→20:22)
[2021-10-14] MEDS: 0.9 % Sodium Chloride Flush 3 ML SYRINGE IVFLUSH ×2 (18:46→19:39)
[2021-10-14 20:07] LABS: Glucose, Whole Blood 172 mg/dL (60-115)
[2021-10-15 03:55] VITALS: BP 90/59; PULSE 88; RESP 18; TEMP 37; O2SAT 92
[2021-10-15 06:15] LABS: Hemoglobin 14.4 g/dl (14.0-18.0); Mean Corpuscular Volume 90.7 fL (80.0-98.0); Mean Platelet Volume 12.3 fL (9.4-12.4); Platelet Count 190 X10*3/uL (160-400); Red Blood Count 4.96 X10*6/uL (4.60-5.80); Red Cell Distribution Width 13.3 % (11.0-16.0); White Blood Count 11.6 X10*3/uL (4.8-10.8)
[2021-10-15 06:44] LABS: Anion Gap 17 (12-20); Blood Urea Nitrogen 34 mg/dL (9-16); Calcium 9.2 mg/dL (8.4-10.2); Carbon Dioxide 23 mmol/L (22-29); Chloride 104 mmol/L (96-108); Creatinine Clr Calc Pharmacy 58.2; Estimated Glomerular Filt Rate 50; Glucose Random 120 mg/dL (60-115); Potassium 4.4 mmol/L (3.3-5.1); Sodium 140 mmol/L (135-145)
[2021-10-15 07:28] VITALS: BP 96/53; PULSE 93; RESP 18; TEMP 36.5; O2SAT 93
[2021-10-15 07:29] LABS: Glucose, Whole Blood 126 mg/dL (60-115)
[2021-10-15 07:30] LABS: Prothrombin Time 60.9 SEC (9.9-13.0)
[2021-10-15 08:03] LABS: INTERNATIONAL NORM RATIO 5.2 (0.9-1.1)
[2021-10-15] MEDS: Potassium Chloride ER 20 MEQ TAB.ER.PRT PO (09:01)
[2021-10-15] MEDS: 0.9 % Sodium Chloride Flush 3 ML SYRINGE IVFLUSH (09:01)
[2021-10-15] MEDS: Furosemide 40 MG/4 ML VIAL IVPUSH (09:02)
--- NOTE | 2021-10-15 09:31 | PM.DS ---
DS: Providers Provider Date of Service: 10/15/21 Date of admission: 10/14/21 15:13 Primary care physician: Angie Fabian MD Consults: 10/14/21 15:13 Consult to Cardiology Routine Consulting Provider: Felton Foster Reason for consultation: rate control, CHF exacerbation DS: Diagnosis Discharge Diagnosis (1) Atrial flutter with rapid ventricular response: Status: Acute (2) Type 2 diabetes mellitus with hyperglycemia: Status: Acute (3) Congestive heart failure: Status: Acute (4) Encounter for cardioversion procedure: Status: Acute (5) Supratherapeutic INR: Status: Acute (6) Congestive heart disease: Status: Acute DS: Summary Hospital Course Hospital Course: Admission note HPI A 51 years old male with PMH of AFib, congenital heart disease, CHF, MELBA, type 2 diabetes among others who presented to the hospital with palpitation and shortness of breath.? He reports he has been having difficulties with breathing and palpitation for the last 3 days worsening today to level were he felt fatigued and unable to do much.? In the emergency he was noted to have atrial flutter with heart rate in 150s.? Evaluated by Cardiology in the emergency as cardioversion was done after failure to respond to medications. He was noted to have acute kidney injury as well with mild troponin elevation.? Chest x-ray showed evidence of heart failure with elevated BNP ?Admitted for further evaluation and treatment. Hospital course The patient had cardioversion done in the emergency with good response as heart rate based around 100. He was started on IV Lasix and admitted to the hospital for evidence of heart failure. Followed by cardiology team who recommended to discharge home on current dose of Lasix of 40 mg daily and to follow-up with his outpatient marriage and family teacher. INR level was noticed to be above 4 at time of admission and increased to 5.2 the 2nd morning. Patient advised to hold warfarin for the day and to repeat INR in 2 days before starting the warfarin and to follow with his primary to monitor the dose. Advised to follow-up with the emergency if any changes in his respiration to, developed fever or shortness of breath. Time Spent with Patient Time attestation: Total time spent providing and/or coordinating discharge services: Discharge coordination time: Greater than 30 minutes Quality: Stroke Does the patient have a stroke diagnosis?: No Physical Exam Vital Signs: Vital Signs: Last Vital Signs Temp 97.7 F 10/15/21 07:28 Pulse 93 10/15/21 07:28 Resp 18 10/15/21 07:28 BP 96/53 L 10/15/21 07:28 Pulse Ox 93 10/15/21 07:28 Oxygen Flow Rate 3 10/14/21 11:46 Body Mass Index 28.7 Const: Other: Constitutional : Alert, oriented, not in distress Neck : Normal inspection, Supple Cardiovascular : Irregular regular, S1 S2, no lower extremity edema, PPM in place. Respiratory : Fair bilateral air entry, resolving basal crackles, no wheezes Gastrointestinal: soft, lax, Normal bowel sounds, Non tender Skin : Warm, Dry Neurological : Alert & oriented x3, No focal deficit DS: Data Data Completed and Pending Labs on day of discharge: Laboratory Results - last 24 hr 10/14/21 10/14/21 10/14/21 07:10 07:56 10:01 WBC RBC Hgb Hct MCV MCH MCHC RDW Plt Count MPV Absolute Nucleated RBC Nucleated RBC % (auto) PT INR Sodium 139 Potassium 4.1 Chloride 103 Carbon Dioxide 23 Anion Gap 17 BUN 30 H D Creatinine 1.58 H Estim Creat Clear Calc 54.5 Estimated GFR 46 POC Glucose Random Glucose 197 H D Calcium 9.1 Magnesium 2.0 Troponin I High Sens 511.6 H* Influenza Type A (PCR) NEGATIVE Influenza Type B (PCR) NEGATIVE RSV RNA Qual (PCR) NEGATIVE SARS-CoV-2 RNA (RT-PCR) NEGATIVE 10/14/21 10/14/21 10/15/21 16:27 19:55 05:13 WBC 11.6 H RBC 4.96 Hgb 14.4 Hct 45.0 MCV 90.7 MCH 29.0 MCHC 32.0 RDW 13.3 Plt Count 190 MPV 12.3 Absolute Nucleated RBC 0.000 Nucleated RBC % (auto) 0.0 PT INR Sodium Potassium Chloride Carbon Dioxide Anion Gap BUN Creatinine Estim Creat Clear Calc Estimated GFR POC Glucose 163 H 172 H Random Glucose Calcium Magnesium Troponin I High Sens Influenza Type A (PCR) Influenza Type B (PCR) RSV RNA Qual (PCR) SARS-CoV-2 RNA (RT-PCR) 10/15/21 10/15/21 10/15/21 05:13 05:13 07:26 WBC RBC Hgb Hct MCV MCH MCHC RDW Plt Count MPV Absolute Nucleated RBC Nucleated RBC % (auto) PT 60.9 H INR 5.2 H* Sodium 140 Potassium 4.4 Chloride 104 Carbon Dioxide 23 Anion Gap 17 BUN 34 H Creatinine 1.48 H Estim Creat Clear Calc 58.2 Estimated GFR 50 POC Glucose 126 H Random Glucose 120 H D Calcium 9.2 Magnesium Troponin I High Sens Influenza Type A (PCR) Influenza Type B (PCR) RSV RNA Qual (PCR) SARS-CoV-2 RNA (RT-PCR) Discharge Plan Discharge Patient Disposition: Home, Self-Care Discharge Diagnosis: Atrial flutter with rapid response Referrals: Po,Angie Schwab MD [Primary Care Provider] - 1 Week Discharge Medications: Continued (DME) Oxygen Home Use Kit See Rx Instructions .ROUTE .MEDSUPPLY Qty: 1 RF: 0 simvastatin 5 mg tablet 5 mg PO BEDTIME 90 Days Qty: 90 RF: 3 metformin 500 mg tablet 500 mg PO BID 90 Days Qty: 180 RF: 3 potassium chloride 20 mEq tablet,ER particles/crystals 20 meq PO DAILY 90 Days Qty: 90 RF: 2 furosemide 40 mg tablet 40 mg PO DAILY RF: 0 Held warfarin [Jantoven] 7.5 mg tablet 7.5 mg PO DAILY Qty: 90 RF: 2 Hold Instructions: Resume on 10/17/21. Discharge Orders: Discharge Order (Routine); Ordered 10/15/21 Ordered By: Gayatri Laboy Diet: advance to usual diet and low salt diet Activity on Discharge: As tolerated Stand Alone Forms: Patient Portal Discharge page Activity Restrictions/Additional Instructions: Your 12 EKG revealed atrial flutter with a rapid ventricular response. Your heart rate was 150. We were unable to slow your heart rate down with IV diltiazem. You were given procedural sedation with fentanyl 50 mg IV and propofol mg IV. Your then cardioverted with 200 joules of biphasic electricity without any complications. Your the high sensitivity troponin I was elevated at 547 but the repeat 3 hour high sensitivity troponin I was 511 which is reassuring since this did not increased. At this time, our marriage and family teacher, Dr. Mack do not think that you had a heart attack. Your INI was slightly high at 4.1 you should discuss this value with your provider that manages your warfarin/Coumadin to decide if you need to change your dose. Follow-up with your doctor in 2 days. Please return to the emergency department if your symptoms get worse or if you develop any symptoms that are concerning to you. Care Plan Goals: Read below Health Concerns: Read below Plan of Treatment: Read below Assessment: Your monitored in the hospital for irregular rapid heart rate. Controlled after cardioversion by marriage and family teacher. To follow-up with your outpatient marriage and family teacher. Your INR level is elevated above 5. Hold warfarin for the next day 2 days Before restarting it at the current dose and repeat INR. To discuss with your marriage and family teacher Please come back to the hospital for any worsening shortness of breath, fever or cough.
--- NOTE | 2021-10-15 09:43 | PC.NURSE ---
IV AND TELEMONITOR REMOVED FOR D/C HOME
--- NOTE | 2021-10-15 10:30 | MHC.CM.PN ---
CM MET WITH PT WHO REPORTS HE LIVES WITH HIS AND KIDS AND IS INDEPENDENT WITH ALL CARE PT HAS NO IN HOME SERVICES. HE USES OXYGEN AND A CPAP AT NIGHT AND HAS NO OTHER DME. PT COMPLETED A HCP TODAY NAMING HIS , MIHAELA, HIS AGENT. PT CONFIRMS HIS PCP IS JULIA MORRISON. [facility] DELIVERED PT CLEARED TO [facility] TODAY [facility] NO SERVICES. TO TRANSPORT
--- NOTE | 2021-10-15 11:07 | PM.PNCARD ---
Subjective Subjective Date of Service: 10/15/21 Interval history: Feeling better. He ambulated the hallways without any symptoms. Physical Exam Vital Signs: Last Vital Signs Temp 97.7 F 10/15/21 07:28 Pulse 93 10/15/21 07:28 Resp 18 10/15/21 07:28 BP 96/53 L 10/15/21 07:28 Pulse Ox 93 10/15/21 07:28 Oxygen Flow Rate 3 10/14/21 11:46 Body Mass Index 28.7 GENERAL APPEARANCE: in no acute distress, pleasant. NECK: no carotid bruit, no jugular venous distention. Positive hepatojugular reflux. SKIN: no suspicious lesions, warm and dry. HEART: Systolic murmur apex and left sternal border. LUNGS: No significant crackles. Right base has some rhonchi. ABDOMEN: soft, nontender. EXTREMITIES: no edema. PERIPHERAL PULSES: equal. NEUROLOGIC: No gross deficits, AAO X 3 Objective Labs and Meds Result diagrams: 10/15/21 05:13 10/15/21 05:13 Lab results: Laboratory Results - last 24 hr 10/14/21 10/14/21 10/14/21 07:10 16:27 19:55 WBC RBC Hgb Hct MCV MCH MCHC RDW Plt Count MPV Absolute Nucleated RBC Nucleated RBC % (auto) PT INR Sodium 139 Potassium 4.1 Chloride 103 Carbon Dioxide 23 Anion Gap 17 BUN 30 H D Creatinine 1.58 H Estim Creat Clear Calc 54.5 Estimated GFR 46 POC Glucose 163 H 172 H Random Glucose 197 H D Calcium 9.1 Magnesium 2.0 10/15/21 10/15/21 10/15/21 05:13 05:13 05:13 WBC 11.6 H RBC 4.96 Hgb 14.4 Hct 45.0 MCV 90.7 MCH 29.0 MCHC 32.0 RDW 13.3 Plt Count 190 MPV 12.3 Absolute Nucleated RBC 0.000 Nucleated RBC % (auto) 0.0 PT 60.9 H INR 5.2 H* Sodium 140 Potassium 4.4 Chloride 104 Carbon Dioxide 23 Anion Gap 17 BUN 34 H Creatinine 1.48 H Estim Creat Clear Calc 58.2 Estimated GFR 50 POC Glucose Random Glucose 120 H D Calcium 9.2 Magnesium 10/15/21 07:26 WBC RBC Hgb Hct MCV MCH MCHC RDW Plt Count MPV Absolute Nucleated RBC Nucleated RBC % (auto) PT INR Sodium Potassium Chloride Carbon Dioxide Anion Gap BUN Creatinine Estim Creat Clear Calc Estimated GFR POC Glucose 126 H Random Glucose Calcium Magnesium Imaging Radiologist's impression: Impressions Chest X-Ray 10/14/21 13:15 IMPRESSION: Possible increasing interstitial opacities as well as hazy opacity at the right base. No other interval change. Progress Note: A&P Assessment and plan (1) Congestive heart disease: Status: Acute (2) Atrial flutter with rapid ventricular response: Status: Acute Assessment and Plan: 51-year-old gentleman with congenital heart disease status post corrective surgery who is presenting for atrial flutter. He underwent cardioversion in the emergency department yesterday. Cardioversion he was hypotension given fluids and then decompensated and developed congestive heart failure. He was given IV Lasix and admitted. He has diuresed well and is feeling good at this point. He has some hepatic jugular reflux. I think he should get 1 more dose of IV Lasix and then we can be changed back to home dose of 40 mg once a day Lasix. His INR is supratherapeutic and he will need close monitoring of his INR because he just underwent cardioversion and subtherapeutic INR (which can happen after holding Coumadin) can lead to had risk of stroke. Follow-up with Dr. Josue Dukes. Thank you for allowing me to participate in the care of your patient. Please feel free to contact me if you have any questions. Fall Risk Details Current Medications: Current Medications Acetaminophen (Acetaminophen 325 Mg Tablet) 650 mg PO Q6H PRN PRN Reason: Pain, Mild (Pain Scale 1-3) Furosemide (Furosemide 40 Mg/4 Ml Vial) 40 mg IVPUSH BID@0900,1800 [facility]; Protocol Last Admin: 10/15/21 09:02 Dose: 40 mg Documented by: Diltiazem HCl 125 mg/ Sodium (Chloride) 125 mls @ 0 mls/hr IVCONT .Q0M [facility]; Protocol Last Titration: 10/14/21 09:49 Dose: 0 mg/hr, 0 mls/hr Documented by: Insulin Human Lispro (Insulin Lispro 100 Unit/Ml 3 Ml Vial) 0 unit SUBCUT QIDACHS [facility]; Protocol Last Admin: 10/15/21 07:33 Dose: Not Given Documented by: Ondansetron HCl (Ondansetron Hcl 4 Mg/2 Ml Vial) 4 mg IVPUSH Q8H PRN PRN Reason: Nausea and Vomiting Pharmacy Consult (Consult Rx Perform Med Rec) 1 each MISCELLANE ONCE PRN PRN Reason: Consult order Potassium Chloride (Potassium Chloride Er 20 Meq Tab.Er.Prt) 20 meq PO DAILY [facility] Last Admin: 10/15/21 09:01 Dose: 20 meq Documented by: Sodium Chloride (0.9 % Sodium Chloride Flush 3 Ml Syringe) 3 ml IVFLUSH QSHIFT [facility] Last Admin: 10/15/21 09:01 Dose: 3 ml Documented by: Time Spent With Patient Time: Total time spent is greater than 50% in coordination of care (as documented) at patient's floor/unit and/or counseling patient: Time with patient: 15 - 24 minutes Progress Note: Quality Stroke Does the patient have a stroke diagnosis?: No Procedures Date of Service Date of Service: 10/15/21
== END 2021-10-15 11:08 | disposition home or self-care (01) | DRG 308 ==
LOC: HO.ED 15:39 → HO.EDOVER 15:47 → HO.IMC 17:40
PROVIDERS: Admitting Provider Student in an Organized Health Care Education/Training Program; Emergency Provider Emergency Medicine Emergency Medical Services; PCP Internal Medicine; Visit Provider Student in an Organized Health Care Education/Training Program
DX: I48.92 Unspecified atrial flutter (principal); J96.01 Acute respiratory failure with hypoxia; G47.33 Obstructive sleep apnea (adult) (pediatric); E11.65 Type 2 diabetes mellitus with hyperglycemia; R79.1 Abnormal coagulation profile; Z23 Encounter for immunization; I50.9 Heart failure, unspecified; I95.9 Hypotension, unspecified; Z95.0 Presence of cardiac pacemaker; Z87.74 Personal history of (corrected) congenital malformations of heart and circulatory system; Z20.822 Contact with and (suspected) exposure to COVID-19; Z79.01 Long term (current) use of anticoagulants; Z79.84 Long term (current) use of oral hypoglycemic drugs; Z79.899 Other long term (current) drug therapy
CPT/HCPCS: 0241U; 36415; 71045; 71046; 80048; 80076; 82947; 83735; 83880; 84484; 85025; 85027; 85610; 85730; 90471; 90686; 93005; 96365; 96366; 96375; 96376; 99285; 99291; 99292; J1940; J3010

== ENCOUNTER → 2021-10-18 13:04 | Outpatient (BNVA) | payer MEDICAID, SELFPAY | PROVIDERS: PCP Internal Medicine; Visit Provider Internal Medicine | DX: I87.1 Compression of vein (principal); Z51.81 Encounter for therapeutic drug level monitoring; Z79.01 Long term (current) use of anticoagulants | CPT/HCPCS: 85610; 99211 ==

== ENCOUNTER → 2021-10-25 13:42 | Outpatient (BNVA) | payer MEDICAID, SELFPAY | PROVIDERS: PCP Internal Medicine; Visit Provider Internal Medicine | DX: I87.1 Compression of vein (principal); Z51.81 Encounter for therapeutic drug level monitoring; Z79.01 Long term (current) use of anticoagulants | CPT/HCPCS: 85610; 99211 ==

== ENCOUNTER → 2021-11-01 13:02 | Outpatient (BNVA) | payer MEDICAID, SELFPAY | PROVIDERS: PCP Internal Medicine; Visit Provider Internal Medicine | DX: I87.1 Compression of vein (principal); Z51.81 Encounter for therapeutic drug level monitoring; Z79.01 Long term (current) use of anticoagulants | CPT/HCPCS: 85610; 99211 ==

== ENCOUNTER → 2021-11-08 13:44 | Outpatient (BNVA) | payer MEDICAID, SELFPAY | PROVIDERS: PCP Internal Medicine; Visit Provider Internal Medicine | DX: I87.1 Compression of vein (principal); Z51.81 Encounter for therapeutic drug level monitoring; Z79.01 Long term (current) use of anticoagulants | CPT/HCPCS: 85610; 99211 ==

== ENCOUNTER → 2021-11-22 13:27 | Outpatient (BNVA) | payer MEDICAID, SELFPAY | PROVIDERS: PCP Internal Medicine; Visit Provider Internal Medicine | DX: I87.1 Compression of vein (principal); I48.92 Unspecified atrial flutter; Q24.9 Congenital malformation of heart, unspecified; I50.32 Chronic diastolic (congestive) heart failure; Z79.899 Other long term (current) drug therapy; Z79.01 Long term (current) use of anticoagulants | CPT/HCPCS: 85610; 99211; 99212 ==

== ENCOUNTER → 2021-12-13 13:36 | Outpatient (BNVA) | payer MEDICAID, SELFPAY | PROVIDERS: PCP Internal Medicine; Visit Provider Internal Medicine | DX: I87.1 Compression of vein (principal); Z51.81 Encounter for therapeutic drug level monitoring; Z79.01 Long term (current) use of anticoagulants | CPT/HCPCS: 85610 ==

== ENCOUNTER → 2022-01-10 13:05 | Outpatient (BNVA) | payer MEDICAID, SELFPAY | PROVIDERS: PCP Internal Medicine; Visit Provider Internal Medicine | DX: I87.1 Compression of vein (principal); Z51.81 Encounter for therapeutic drug level monitoring; Z79.01 Long term (current) use of anticoagulants | CPT/HCPCS: 85610; 99211 ==

== ENCOUNTER → 2022-02-07 12:59 | Outpatient (BNVA) | payer MEDICAID, SELFPAY | PROVIDERS: PCP Internal Medicine; Visit Provider Internal Medicine | DX: I87.1 Compression of vein (principal); Z51.81 Encounter for therapeutic drug level monitoring; Z79.01 Long term (current) use of anticoagulants | CPT/HCPCS: 85610; 99211 ==

== ENCOUNTER 2022-02-23 11:40 | Emergency (ER) | payer MEDICARE, MEDICAID, SELFPAY ==
[2022-02-23] VITALS (10 sets, daily range): BP systolic 83–116; BP diastolic 54–80; PULSE 79–154; RESP 16–18; TEMP 36.8; O2SAT 88–96; BMI 29.5
--- NOTE | 2022-02-23 11:41 | ECG_ITS ---
Test Reason : PALPITATION Blood Pressure : / mmHG Vent. Rate : 153 BPM Atrial Rate : 075 BPM P-R Int : 000 ms QRS Dur : 154 ms QT Int : 370 ms P-R-T Axes : 000 147 081 degrees QTc Int : 590 ms Ventricular-paced rhythm Underlyiing atrial flutter Abnormal ECG When compared with ECG of 14-OCT-2021 11:44, Vent. rate has increased BY 73 BPM Referred By: Generic ED Physician Electronically Signed By:GABI AC
--- NOTE | 2022-02-23 11:52 | ED_ITS ---
HPI - Arrhythmia/Palpitations General Chief Complaint: Arrhythmia/Palpitations Stated Complaint: Rapid heartbeat Time Seen by Provider: 02/23/22 11:52 Source: patient Mode of arrival: ambulatory Limitations: no limitations History of Present Illness HPI narrative: patient with congenital heart disease, heart was operated on at [facility], he has a dual pacer. This morning his heart rate was 150. He had ex actly the same presentation in September where he was in atrial flutter and was cardioverted with SophiaJ complaint: rapid heart beat Onset (ago): hour(s) Duration: constant Severity: moderate Context: occurred during rest Arrhythmia history: atrial fibrillation Associated symptoms: denies other symptoms Related Data Previous Rx's Medication Instructions Recorded Oxygen Home Use #1 ea 03/09/21 potassium chloride 20 mEq 20 meq PO DAILY 90 Days #90 cap 06/16/21 tablet,extended release(part/cryst) warfarin 7.5 mg tablet 7.5 mg PO DAILY 90 Days #90 tab 11/29/21 furosemide 40 mg tablet 60 mg PO DAILY 90 Days #135 tab 01/11/22 metformin 500 mg tablet 500 mg PO BID 90 Days #180 cap 02/13/22 simvastatin 5 mg tablet 5 mg PO BEDTIME 90 Days #90 cap 02/13/22 metoprolol succinate 25 mg 25 mg PO DAILY #30 tab 02/23/22 tablet,extended release 24 hr (Toprol XL) Allergies Allergy/AdvReac Type Severity Reaction Status Date / Time No Known Allergies Allergy Verified 02/23/22 10:48 Review of Systems Constitutional: Constitutional: Reports no additional constitutional complaints Eyes: Eyes: Reports no additional eye complaints ENT: Denies dizziness Cardiovascular: Cardiovascular: Reports no additional cardiovascular complaints Respiratory: Respiratory: Reports as per HPI Gastrointestinal: Gastrointestinal: Reports no additional gastrointestinal complaints Musculoskeletal: Musculoskeletal: Reports no additional musculoskeletal complaints Integumentary/Breasts: Skin/Breast: Denies rash Neurologic: Reports system reviewed and no additional complaints, except as documented, Denies dizziness and Denies Sensory deficit (Neuro) Psychiatric: Psychiatric: Denies anxiety PMF Past Medical History Medical History (Updated 02/23/22 @ 16:51 by Gagan Ulloa MD) 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 Mother Diabetes Son Autism Social History Social History Household Members: Spouse Housing: House Do you presently have visiting nurse or other home services: No Unable to assess alcohol history related to: Unknown Patient Tobacco Use Status: Never used Tobacco e-Cigarette/Vaping Use: Never Used Second Hand Smoke Exposure: No Use of substances other than those prescribed or required for medical reasons: No Advance Directives: Yes Advance Directives on File: Yes Advance Directives Date on File: 10/16/21 service: No Current occupational status: employed Cognitive needs: No Hearing needs: No Vision needs: No Physical Exam Vital Signs: Vital Signs: Last Vital Signs Temp 98.3 F 02/23/22 11:52 Pulse 79 02/23/22 14:50 Resp 16 02/23/22 14:46 BP 87/56 L 02/23/22 14:50 Pulse Ox 95 02/23/22 14:50 Oxygen Flow Rate 4 02/23/22 14:09 BMI result Body Mass Index 29.5 Const: General: healthy appearing Nutritional Appearance: average body habitus Orientation/consciousness: oriented to person and patient oriented x3 Limitations: no limitations HEENT: Head: Yes normal to inspection Ears: external ears normal General nose exam: Normal external nose present Mouth: Normal oral and palatal mucosa present and oropharynx normal Throat: Yes posterior oropharynx normal Eyes: General: appearance normal, both eyes and all related structures Neck: Other: supple Neck: Yes normal visual inspection Chest: Chest palpation & inspection: normal inspection of the chest Resp: Auscultation: clear to auscultation bilaterally Cardio: Other: tachycardia Jugular venous distension: no JVD GI: Inspection: Yes normal to inspection Palpation (GI): Soft to palpation, nontender and No hepatosplenomegaly present Auscultation: normal bowel sounds : General: Yes no CVA tenderness Back/Spine/Pelvis: Back: no CVA tenderness Skin: General skin exam: no rashes or lesions noted Neuro: General: oriented to person and patient oriented x3 Cranial nerves: Yes CN's II-XII intact bilaterally Motor exam (neuro): 5/5 motor strength present throughout Sensory Exam: No Sensory deficit (Neuro) Extrem: General: Yes normal to inspection Psych: Appearance: grossly normal Course Course Course Narrative: In discussions with Dr. Guillory who is aware, will try IV lopressor but most likely will need cardioversion Reevaluation(s) Reevaluation #1: patient awake and alert after conscious sedation and cardioversion will start toprol and dc home Time: 16:50 MDM - Arrhythmia/Palpitations Lab Data Result diagrams: 02/23/22 12:14 02/23/22 12:14 Labs: Lab Results 02/23/22 02/23/22 02/23/22 Range/Units 12:14 12:14 12:14 WBC 6.9 (4.8-10.8) X10*3/uL RBC 4.67 (4.60-5.80) X10*6/uL Hgb 13.9 L (14.0-18.0) g/dl Hct 42.9 (42.0-52.0) % MCV 91.9 (80.0-98.0) fL MCH 29.8 (27.0-33.0) pg MCHC 32.4 (31.0-36.0) g/dl RDW 13.7 (11.0-16.0) % Plt Count 160 (160-400) X10*3/uL MPV 11.3 (9.4-12.4) fL Immature Gran % (Auto) 0.4 (0.0-0.4) % Neut % (Auto) 77.1 H (45-73) % Lymph % (Auto) 15.5 L (20-40) % [place] % (Auto) 6.3 (2-11) % Eos % (Auto) 0.3 (0-4) % Baso % (Auto) 0.4 (0-2) % Lymph # (Auto) 1.1 L (1.2-4.9) X10*3/uL [place] # (Auto) 0.4 (0.1-1.2) X10*3/uL Eos # (Auto) 0.0 (0.0-0.4) X10*3/uL Baso # (Auto) 0.0 (0.0-0.2) X10*3/uL Abs Immat Gran (auto) 0.03 (0.00-0.03) X10*3/uL Absolute Neuts (auto) 5.3 (2.0-8.3) x10*3/uL Absolute Nucleated RBC 0.000 (0.0-0.012) X10*3/uL Nucleated RBC % (auto) 0.0 (0.0-0.2) /100WBC PT (9.9-13.0) SEC INR (0.9-1.1) Sodium 138 (135-145) mmol/L Potassium 4.3 (3.3-5.1) mmol/L Chloride 103 (96-108) mmol/L Carbon Dioxide 25 (22-29) mmol/L Anion Gap 14 (12-20) BUN 23 H (9-16) mg/dL Creatinine 1.35 (0.5-1.4) mg/dL Estim Creat Clear Calc 64.7 Estimated GFR 55 Random Glucose 222 H D (60-115) mg/dL Calcium 9.2 (8.4-10.2) mg/dL Troponin I High Sens 45.1 H (<3.5-35.0) ng/L 02/23/22 Range/Units 12:14 WBC (4.8-10.8) X10*3/uL RBC (4.60-5.80) X10*6/uL Hgb (14.0-18.0) g/dl Hct (42.0-52.0) % MCV (80.0-98.0) fL MCH (27.0-33.0) pg MCHC (31.0-36.0) g/dl RDW (11.0-16.0) % Plt Count (160-400) X10*3/uL MPV (9.4-12.4) fL Immature Gran % (Auto) (0.0-0.4) % Neut % (Auto) (45-73) % Lymph % (Auto) (20-40) % [place] % (Auto) (2-11) % Eos % (Auto) (0-4) % Baso % (Auto) (0-2) % Lymph # (Auto) (1.2-4.9) X10*3/uL [place] # (Auto) (0.1-1.2) X10*3/uL Eos # (Auto) (0.0-0.4) X10*3/uL Baso # (Auto) (0.0-0.2) X10*3/uL Abs Immat Gran (auto) (0.00-0.03) X10*3/uL Absolute Neuts (auto) (2.0-8.3) x10*3/uL Absolute Nucleated RBC (0.0-0.012) X10*3/uL Nucleated RBC % (auto) (0.0-0.2) /100WBC PT 29.7 H (9.9-13.0) SEC INR 2.6 H D (0.9-1.1) Sodium (135-145) mmol/L Potassium (3.3-5.1) mmol/L Chloride (96-108) mmol/L Carbon Dioxide (22-29) mmol/L Anion Gap (12-20) BUN (9-16) mg/dL Creatinine (0.5-1.4) mg/dL Estim Creat Clear Calc Estimated GFR Random Glucose (60-115) mg/dL Calcium (8.4-10.2) mg/dL Troponin I High Sens (<3.5-35.0) ng/L Procedures Procedure Narrative Procedure Narrative: patient consented for conscious sedation and cardioversion, fentanyl and versed used for sedation, patient cardioverted with 200J synchronized Discharge Plan Discharge Clinical Impression: Atrial flutter Patient Disposition: Home, Self-Care Instructions: Atrial Flutter (ED) Prescriptions: New metoprolol succinate [Toprol XL] 25 mg tablet extended release 24 hr 25 mg PO DAILY Qty: 30 0RF No Action (DME) Oxygen Home Use Kit See Rx Instructions .ROUTE .MEDSUPPLY Qty: 1 0RF Rx Instructions: As directed @L NC potassium chloride 20 mEq tablet,ER particles/crystals 20 meq PO DAILY 90 Days Qty: 90 2RF warfarin 7.5 mg tablet 7.5 mg PO DAILY 90 Days Qty: 90 3RF Protocol: Dose Management Condition: Saturday (Week One) Dose/Route: 7.5 mg Instruction: 1 x 7.5 mg tablet Condition: Saturday Dose/Route: 3.75 mg Instruction: 0.5 x 7.5 mg tablets Condition: Saturday Dose/Route: 7.5 mg Instruction: 1 x 7.5 mg tablet Condition: Saturday Dose/Route: 7.5 mg Instruction: 1 x 7.5 mg tablet Condition: Dose/Route: 7.5 mg Instruction: 1 x 7.5 mg tablet Condition: Saturday Dose/Route: 7.5 mg Instruction: 1 x 7.5 mg tablet Condition: Saturday Dose/Route: 7.5 mg Instruction: 1 x 7.5 mg tablet Condition: Saturday (Week Two) Dose/Route: 7.5 mg Instruction: 1 x 7.5 mg tablet Condition: Saturday Dose/Route: 3.75 mg Instruction: 0.5 x 7.5 mg tablets Condition: Saturday Dose/Route: 7.5 mg Instruction: 1 x 7.5 mg tablet Condition: Saturday Dose/Route: 7.5 mg Instruction: 1 x 7.5 mg tablet Condition: Dose/Route: 7.5 mg Instruction: 1 x 7.5 mg tablet Condition: Saturday Dose/Route: 7.5 mg Instruction: 1 x 7.5 mg tablet Condition: Saturday Dose/Route: 7.5 mg Instruction: 1 x 7.5 mg tablet Protocol Text: Adjustment Start Date: Saturday02/07/22 INR Value: 2.3 INR Date: 02/07/22 Recheck Date: 03/07/22 furosemide 40 mg tablet 60 mg PO DAILY 90 Days Qty: 135 3RF Rx Instructions: or as directed simvastatin 5 mg tablet 5 mg PO BEDTIME 90 Days Qty: 90 3RF metformin 500 mg tablet 500 mg PO BID 90 Days Qty: 180 3RF Referrals: Jose R Guillory MD [Physician] - 5 days
--- NOTE | 2022-02-23 11:58 | ECG_ITS ---
Test Reason : REPEAT Blood Pressure : / mmHG Vent. Rate : 080 BPM Atrial Rate : 080 BPM P-R Int : 166 ms QRS Dur : 144 ms QT Int : 456 ms P-R-T Axes : 215 111 -63 degrees QTc Int : 525 ms AV dual-paced rhythm Abnormal ECG When compared with ECG of 23-FEB-2022 11:39, Vent. rate has decreased BY 73 BPM Rhythm change Referred By: Gagan Ulloa Electronically Signed By:GABI AC
[2022-02-23] MEDS: Metoprolol Tartrate 5 MG/5 ML VIAL IVPUSH ×2 (12:18→14:29)
[2022-02-23 12:21] LABS: MANUAL DIFF FLAG NO
[2022-02-23 12:30] LABS: Basophils Percent Auto 0.4 % (0-2); Eosinophils Percent Auto 0.3 % (0-4); Hematocrit 42.9 % (42.0-52.0); Hemoglobin 13.9 g/dl (14.0-18.0); INTERNATIONAL NORM RATIO 2.6 (0.9-1.1); Imm Gran Abs Auto 0.03 X10*3/uL (0.00-0.03); Imm Gran Pct Auto 0.4 % (0.0-0.4); Lymphocytes Absolute Auto 1.1 X10*3/uL (1.2-4.9); Lymphocytes Percent Auto 15.5 % (20-40); Mean Corpuscular HGB Conc 32.4 g/dl (31.0-36.0); Mean Corpuscular Hemoglobin 29.8 pg (27.0-33.0); Mean Corpuscular Volume 91.9 fL (80.0-98.0); Mean Platelet Volume 11.3 fL (9.4-12.4); Monocytes Absolute Auto 0.4 X10*3/uL (0.1-1.2); Monocytes Percent Auto 6.3 % (2-11); Neutrophils Absolute Auto 5.3 x10*3/uL (2.0-8.3); Neutrophils Percent Auto 77.1 % (45-73); Platelet Count 160 X10*3/uL (160-400); Prothrombin Time 29.7 SEC (9.9-13.0); Red Blood Count 4.67 X10*6/uL (4.60-5.80); Red Cell Distribution Width 13.7 % (11.0-16.0); White Blood Count 6.9 X10*3/uL (4.8-10.8)
[2022-02-23 12:34] LABS: Anion Gap 14 (12-20); Blood Urea Nitrogen 23 mg/dL (9-16); Calcium 9.2 mg/dL (8.4-10.2); Carbon Dioxide 25 mmol/L (22-29); Chloride 103 mmol/L (96-108); Creatinine Clr Calc Pharmacy 64.7; Estimated Glomerular Filt Rate 55; Glucose Random 222 mg/dL (60-115); Potassium 4.3 mmol/L (3.3-5.1); Sodium 138 mmol/L (135-145)
[2022-02-23 12:42] LABS: Troponin-I High Sensitivity 45.1 ng/L (<3.5-35.0)
[2022-02-23] MEDS: fentaNYL citrate/PF 100 MCG/2 ML VIAL IVPUSH (14:00)
[2022-02-23] MEDS: Midazolam HCl/PF 2 MG/2 ML VIAL 4 MG IVPUSH (14:00)
--- NOTE | 2022-02-23 14:45 | PC.NURSE ---
Synchronized cardioversion completed, see procedural sedation assessment for details. Pt tolerated well. again at bedside. Giving Metoprolol as ordered for continued rate control, BP low, Dr Ulloa aware. Fluids slowly infusing. Pt asleep but awakes easily to voice, oriented.
[2022-02-23] MEDS: Metoprolol Succinate ER 25 MG TAB.ER.24H PO (17:01)
== END 2022-02-23 17:32 | disposition home or self-care (01) ==
PROVIDERS: Emergency Provider Emergency Medicine; PCP Internal Medicine
DX: I48.92 Unspecified atrial flutter (principal); R00.2 Palpitations; E11.9 Type 2 diabetes mellitus without complications; Q24.9 Congenital malformation of heart, unspecified; I48.91 Unspecified atrial fibrillation; E78.00 Pure hypercholesterolemia, unspecified; Z95.2 Presence of prosthetic heart valve; Z79.01 Long term (current) use of anticoagulants; Z79.02 Long term (current) use of antithrombotics/antiplatelets
CPT/HCPCS: 36415; 80048; 84484; 85025; 85610; 92960; 93005; 96374; 96375; 96376; 99152; 99285; J2250; J3010

== ENCOUNTER → 2022-03-07 13:03 | Outpatient (BNVA) | payer MEDICAID, SELFPAY | PROVIDERS: PCP Internal Medicine; Visit Provider Internal Medicine | DX: I87.1 Compression of vein (principal); Q24.9 Congenital malformation of heart, unspecified; I48.92 Unspecified atrial flutter; Z79.01 Long term (current) use of anticoagulants; Z51.81 Encounter for therapeutic drug level monitoring | CPT/HCPCS: 85610; 93005; 99211; 99212 ==

== ENCOUNTER → 2022-03-23 13:30 | Outpatient (BNVA) | payer MEDICAID, SELFPAY | PROVIDERS: PCP Internal Medicine; Visit Provider Internal Medicine | DX: I87.1 Compression of vein (principal); Z79.01 Long term (current) use of anticoagulants; Z51.81 Encounter for therapeutic drug level monitoring | CPT/HCPCS: 85610; 99211 ==

== ENCOUNTER → 2022-04-06 12:59 | Outpatient (BNVA) | payer MEDICAID, SELFPAY | PROVIDERS: PCP Internal Medicine; Visit Provider Internal Medicine | DX: I87.1 Compression of vein (principal); Z79.01 Long term (current) use of anticoagulants; Z51.81 Encounter for therapeutic drug level monitoring | CPT/HCPCS: 85610; 99211 ==

== ENCOUNTER → 2022-05-02 13:06 | Outpatient (BNVA) | payer MEDICAID, SELFPAY | PROVIDERS: PCP Internal Medicine; Visit Provider Internal Medicine | DX: I87.1 Compression of vein (principal); Z79.01 Long term (current) use of anticoagulants; Z51.81 Encounter for therapeutic drug level monitoring | CPT/HCPCS: 85610; 99211 ==

== ENCOUNTER → 2022-05-30 08:18 | Outpatient (BNVA) | payer MEDICAID, SELFPAY | PROVIDERS: PCP Internal Medicine; Visit Provider Internal Medicine | DX: I87.1 Compression of vein (principal); Z79.01 Long term (current) use of anticoagulants; Z51.81 Encounter for therapeutic drug level monitoring | CPT/HCPCS: 85610; 99211 ==

== ENCOUNTER → 2022-06-27 09:05 | Outpatient (BNVA) | payer MEDICAID, SELFPAY | PROVIDERS: PCP Internal Medicine; Visit Provider Internal Medicine | DX: I48.0 Paroxysmal atrial fibrillation (principal); Z79.01 Long term (current) use of anticoagulants; Z51.81 Encounter for therapeutic drug level monitoring | CPT/HCPCS: 85610; 99211 ==

== ENCOUNTER → 2022-07-18 13:25 | Outpatient (BNVA) | payer MEDICAID, SELFPAY | PROVIDERS: PCP Internal Medicine; Referring Provider Internal Medicine; Visit Provider Internal Medicine Cardiovascular Disease | DX: Q24.9 Congenital malformation of heart, unspecified (principal); I48.92 Unspecified atrial flutter | CPT/HCPCS: 99212 ==

== ENCOUNTER → 2022-07-25 09:02 | Outpatient (BNVA) | payer MEDICAID, SELFPAY | PROVIDERS: PCP Internal Medicine; Visit Provider Internal Medicine | DX: I87.1 Compression of vein (principal); Z51.81 Encounter for therapeutic drug level monitoring; Z79.01 Long term (current) use of anticoagulants | CPT/HCPCS: 85610; 99211 ==

== ENCOUNTER → 2022-08-08 13:02 | Outpatient (BNVA) | payer MEDICAID, SELFPAY | PROVIDERS: PCP Internal Medicine; Visit Provider Internal Medicine | DX: I87.1 Compression of vein (principal); Z79.01 Long term (current) use of anticoagulants; Z51.81 Encounter for therapeutic drug level monitoring | CPT/HCPCS: 85610; 99211 ==

== ENCOUNTER → 2022-08-13 13:37 | Outpatient (BNVA) | payer MEDICAID, SELFPAY | PROVIDERS: PCP Internal Medicine; Visit Provider Internal Medicine | DX: I87.1 Compression of vein (principal); Z79.01 Long term (current) use of anticoagulants; Z51.81 Encounter for therapeutic drug level monitoring | CPT/HCPCS: 85610; 99211 ==

== ENCOUNTER → 2022-08-22 13:14 | Outpatient (BNVA) | payer MEDICAID, SELFPAY | PROVIDERS: PCP Internal Medicine; Visit Provider Internal Medicine | DX: I87.1 Compression of vein (principal); Z79.01 Long term (current) use of anticoagulants; Z51.81 Encounter for therapeutic drug level monitoring | CPT/HCPCS: 85610; 99211 ==

== ENCOUNTER → 2022-09-12 13:20 | Outpatient (BNVA) | payer MEDICAID, SELFPAY | PROVIDERS: PCP Internal Medicine; Visit Provider Internal Medicine | DX: I87.1 Compression of vein (principal); Z79.01 Long term (current) use of anticoagulants; Z51.81 Encounter for therapeutic drug level monitoring | CPT/HCPCS: 85610; 99211 ==

== ENCOUNTER → 2022-10-10 13:02 | Outpatient (BNVA) | payer MEDICAID, SELFPAY | PROVIDERS: PCP Internal Medicine; Visit Provider Internal Medicine | DX: I87.1 Compression of vein (principal); Z79.01 Long term (current) use of anticoagulants; Z51.81 Encounter for therapeutic drug level monitoring | CPT/HCPCS: 85610; 99211 ==

== ENCOUNTER → 2022-11-09 09:16 | Outpatient (BNVA) | payer MEDICAID, SELFPAY | PROVIDERS: PCP Internal Medicine; Visit Provider Internal Medicine | DX: I87.1 Compression of vein (principal); Z79.01 Long term (current) use of anticoagulants; Z51.81 Encounter for therapeutic drug level monitoring | CPT/HCPCS: 85610; 99211 ==

== ENCOUNTER → 2022-12-07 13:37 | Outpatient (BNVA) | payer MEDICAID, SELFPAY | PROVIDERS: PCP Internal Medicine; Visit Provider Internal Medicine | DX: I87.1 Compression of vein (principal); Z79.01 Long term (current) use of anticoagulants; Z51.81 Encounter for therapeutic drug level monitoring | CPT/HCPCS: 85610; 99211 ==

== ENCOUNTER → 2022-12-21 13:26 | Outpatient (BNVA) | payer MEDICAID, SELFPAY | PROVIDERS: PCP Internal Medicine; Visit Provider Internal Medicine | DX: I87.1 Compression of vein (principal); Z79.01 Long term (current) use of anticoagulants; Z51.81 Encounter for therapeutic drug level monitoring | CPT/HCPCS: 85610; 99211 ==

== ENCOUNTER 2023-01-16 08:53 | Outpatient (REF) | payer MEDICAID, SELFPAY ==
[2023-01-16 09:15] LABS: MANUAL DIFF FLAG NO
[2023-01-16 10:00] LABS: Basophils Percent Auto 0.5 % (0-2); Eosinophils Absolute Auto 0.2 X10*3/uL (0.0-0.4); Eosinophils Percent Auto 2.8 % (0-4); Hematocrit 44.7 % (42.0-52.0); Hemoglobin 14.4 g/dl (14.0-18.0); Imm Gran Abs Auto 0.01 X10*3/uL (0.00-0.03); Imm Gran Pct Auto 0.2 % (0.0-0.4); Immature Retic Fraction 15.4 % (2.3-13.4); Lymphocytes Absolute Auto 1.9 X10*3/uL (1.2-4.9); Lymphocytes Percent Auto 31.8 % (20-40); Mean Corpuscular HGB Conc 32.2 g/dl (31.0-36.0); Mean Corpuscular Hemoglobin 30.3 pg (27.0-33.0); Mean Corpuscular Volume 93.9 fL (80.0-98.0); Mean Platelet Volume 11.6 fL (9.4-12.4); Monocytes Absolute Auto 0.5 X10*3/uL (0.1-1.2); Monocytes Percent Auto 7.7 % (2-11); Neutrophils Absolute Auto 3.3 x10*3/uL (2.0-8.3); Platelet Count 163 X10*3/uL (160-400); Red Blood Count 4.76 X10*6/uL (4.60-5.80); Red Cell Distribution Width 13.6 % (11.0-16.0); Retic HGB Equivalent 35.2 pg (30.0-35.0); Reticulocyte Percent 1.5 % (0.5-1.8); Reticulocytes Absolute 0.073 X10*6/uL (0.026-0.095); White Blood Count 5.8 X10*3/uL (4.8-10.8)
[2023-01-16 10:12] LABS: Estimated Average Glucose 148 mg/dL; Hemoglobin A1c % 6.8 %
[2023-01-16 10:31] LABS: B Type Natriuretic Peptide 460 pg/mL (<100)
[2023-01-16 10:35] LABS: Alanine Aminotransferase 23 U/L (0-40); Albumin Level 4.4 g/dL (3.5-5.0); Alkaline Phosphatase 73 U/L (39-117); Anion Gap 14 (12-20); Aspartate Amino Transferase 24 U/L (5-37); Blood Urea Nitrogen 22 mg/dL (9-16); Calcium 9.4 mg/dL (8.4-10.2); Carbon Dioxide 28 mmol/L (22-29); Chloride 105 mmol/L (96-108); Cholesterol 152 mg/dL; Estimated Glomerular Filt Rate > 60; Glucose Random 110 mg/dL (60-115); HDL Cholesterol 45 mg/dL; Iron 89 mcg/dL (45-160); LDL Cholesterol Calculated 93 mg/dl; Percent Iron Saturation 25 % (15-50); Potassium 4.7 mmol/L (3.3-5.1); Sodium 142 mmol/L (135-145); Total Iron Binding Capacity 357 mcg/dL (228-428); Triglycerides 74 mg/dL; Unsaturated Iron Binding 268 ug/dL
[2023-01-16 11:06] LABS: Ferritin 57 ng/mL (20-250); Folate 15.2 ng/mL (> or = 4.0); Free T4 (Free Thyroxine) 1.15 ng/dL (0.71-1.85); Prostate Specific Antigen Scr 3.19 ng/mL (<0.05-4.0); Thyroid Stimulating Hormone 0.95 uIU/mL (0.32-4.0); Vitamin B12 928 pg/mL (200-900)
[2023-01-16 15:38] LABS: Creatinine Urine 270.81 mg/dL; Microalbum/Creatinine Ratio Ur 63.5 ug/mg cr
[2023-01-24 15:34] LABS: Testosterone, Total 385 ng/dL (250-1100)
== END 2023-01-16 08:54 | disposition home or self-care (01) ==
LOC: HO.LAB 08:53
PROVIDERS: PCP Internal Medicine; Visit Provider Internal Medicine
DX: E11.65 Type 2 diabetes mellitus with hyperglycemia (principal); E78.00 Pure hypercholesterolemia, unspecified; N52.9 Male erectile dysfunction, unspecified; I50.32 Chronic diastolic (congestive) heart failure; Z12.5 Encounter for screening for malignant neoplasm of prostate
CPT/HCPCS: 36415; 80053; 80061; 82043; 82607; 82728; 82746; 83036; 83540; 83880; 84153; 84403; 84439; 84443; 85025; 85045

== ENCOUNTER → 2023-01-18 08:59 | Outpatient (BNVA) | payer MEDICAID, SELFPAY | PROVIDERS: PCP Internal Medicine; Visit Provider Internal Medicine | DX: I87.1 Compression of vein (principal); Z79.01 Long term (current) use of anticoagulants; Z51.81 Encounter for therapeutic drug level monitoring | CPT/HCPCS: 85610; 99211 ==

== ENCOUNTER → 2023-02-15 09:10 | Outpatient (BNVA) | payer MEDICAID, SELFPAY | PROVIDERS: PCP Internal Medicine; Visit Provider Internal Medicine | DX: I87.1 Compression of vein (principal); Z79.01 Long term (current) use of anticoagulants; Z51.81 Encounter for therapeutic drug level monitoring | CPT/HCPCS: 85610; 99211 ==

== ENCOUNTER → 2023-02-18 13:37 | Outpatient (BNVA) | payer MEDICAID, SELFPAY | PROVIDERS: PCP Internal Medicine; Referring Provider Internal Medicine; Visit Provider Internal Medicine Cardiovascular Disease | DX: I50.32 Chronic diastolic (congestive) heart failure (principal); I48.92 Unspecified atrial flutter; Q24.9 Congenital malformation of heart, unspecified | CPT/HCPCS: 93005; 99212 ==

== ENCOUNTER → 2023-03-15 09:10 | Outpatient (BNVA) | payer MEDICAID, SELFPAY | PROVIDERS: PCP Internal Medicine; Visit Provider Internal Medicine | DX: I87.1 Compression of vein (principal); Z79.01 Long term (current) use of anticoagulants; Z51.81 Encounter for therapeutic drug level monitoring | CPT/HCPCS: 85610; 99211 ==

== ENCOUNTER → 2023-04-15 08:39 | Outpatient (BNVA) | payer MEDICAID, SELFPAY | PROVIDERS: PCP Internal Medicine; Visit Provider Internal Medicine | DX: I87.1 Compression of vein (principal); Z79.01 Long term (current) use of anticoagulants; Z51.81 Encounter for therapeutic drug level monitoring | CPT/HCPCS: 85610; 99211 ==

== ENCOUNTER → 2023-05-15 08:42 | Outpatient (BNVA) | payer MEDICAID, SELFPAY | PROVIDERS: PCP Internal Medicine; Visit Provider Internal Medicine | DX: I87.1 Compression of vein (principal); Z79.01 Long term (current) use of anticoagulants; Z51.81 Encounter for therapeutic drug level monitoring | CPT/HCPCS: 85610; 99211 ==

== ENCOUNTER 2023-06-17 09:50 | Outpatient (AMB) | payer MEDICAID, SELFPAY ==
--- NOTE | 2023-06-17 09:54 | MHC.OFFVISCO ---
Intake Intake Visit Reasons: Anticoagulation Allergies No Known Allergies Allergy (Verified 06/17/23 10:00) Medication List - Last Reconciled 06/17/23 by Angeline Brower RN blood sugar diagnostic (FreeStyle Lite Strips) As directed check the BS QD [CPAP RESMED NASAL MASK MEDIUM 11-14 cm H20 humidified air As directed] furosemide 60 mg (1.5 x 40 mg) PO DAILY 90 days lancets (FreeStyle Lancets) As directed check BS QD metformin 500 mg PO BID 90 days Oxygen Home Use As directed @L NC potassium chloride ER 20 mEq PO DAILY 90 days sildenafil (Viagra) 50 mg PO DAILY PRN simvastatin 10 mg PO BEDTIME warfarin 7.5 mg See Protocol PO DAILY 90 days Nursing Note INR: 2.3 in therapeutic range Medications and supplements reviewed- no changes No changes in health, diet, medications, or supplements, Denies any signs and symptoms of bleeding or bruising or clotting. 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
[2023-06-17 09:55] LABS: Prothrombin Time Whole Bld POC 27.4 sec (11.1-13.5); ~PT, ~INR - Anti Coag Clinic 2.3 (0.9-1.1)
== END 2023-06-17 10:01 | disposition home or self-care (01) ==
LOC: HO.ACS 09:50
PROVIDERS: PCP Internal Medicine; Visit Provider Internal Medicine
DX: Z79.01 Long term (current) use of anticoagulants (principal)

== ENCOUNTER → 2023-06-17 09:50 | Outpatient (BNVA) | payer MEDICAID, SELFPAY | PROVIDERS: PCP Internal Medicine; Visit Provider Internal Medicine | DX: I87.1 Compression of vein (principal); Z51.81 Encounter for therapeutic drug level monitoring; Z79.01 Long term (current) use of anticoagulants | CPT/HCPCS: 85610; 99211 ==

== ENCOUNTER 2023-07-15 08:55 | Outpatient (AMB) | payer MEDICAID, SELFPAY ==
[2023-07-15 09:20] LABS: Prothrombin Time Whole Bld POC 25.3 sec (11.1-13.5); ~PT, ~INR - Anti Coag Clinic 2.1 (0.9-1.1)
--- NOTE | 2023-07-15 09:21 | MHC.OFFVISCO ---
Intake Intake Visit Reasons: Anticoagulation Allergies No Known Allergies Allergy (Verified 07/15/23 09:15) Medication List - Last Reconciled 07/15/23 by Gabby Anna RN blood sugar diagnostic (FreeStyle Lite Strips) As directed check the BS QD [CPAP RESMED NASAL MASK MEDIUM 11-14 cm H20 humidified air As directed] furosemide 60 mg (1.5 x 40 mg) PO DAILY 90 days lancets (FreeStyle Lancets) As directed check BS QD metformin 500 mg PO BID 90 days Oxygen Home Use As directed @L NC potassium chloride ER 20 mEq PO DAILY 90 days sildenafil (Viagra) 50 mg PO DAILY PRN simvastatin 10 mg PO BEDTIME warfarin 7.5 mg See Protocol PO DAILY 90 days Nursing Note INR: 2.1 in therapeutic range Medications and supplements reviewed No changes in health, diet, medications, or supplements, Denies any signs and symptoms of bleeding or bruising or clotting. Bleeding, bruising, clotting discussed Nutritional guidance given Dose: 3.75MG X 1 DAYS/ 7.5MG X 6 DAYS F/U INR: 4WWEKS Patient verbalizes understanding of instructions given Anti-Coag Initial Assessment Social Hx Patient Tobacco Use Status: Never used Tobacco Alcohol intake frequency: does not drink Coding Level of Care Code Est Patient Level 1 Diagnoses Current use of anticoagulant therapy Z79.01 Assessment & Plan Assessment & Plan (1) Current use of anticoagulant therapy: Code(s): Z79.01 - manager terminal (current) use of anticoagulants Category: Medical
== END 2023-07-15 09:24 | disposition home or self-care (01) ==
LOC: HO.ACS 08:55
PROVIDERS: PCP Internal Medicine; Visit Provider Internal Medicine
DX: Z79.01 Long term (current) use of anticoagulants (principal)

== ENCOUNTER → 2023-07-15 08:55 | Outpatient (BNVA) | payer MEDICAID, SELFPAY | PROVIDERS: PCP Internal Medicine; Visit Provider Internal Medicine | DX: I87.1 Compression of vein (principal); Z79.01 Long term (current) use of anticoagulants; Z51.81 Encounter for therapeutic drug level monitoring | CPT/HCPCS: 85610; 99211 ==

== ENCOUNTER 2023-08-14 08:58 | Outpatient (AMB) | payer MEDICAID, SELFPAY ==
--- NOTE | 2023-08-14 09:01 | MHC.OFFVISCO ---
Intake Intake Visit Reasons: Anticoagulation Allergies No Known Allergies Allergy (Verified 08/14/23 08:59) Medication List - Last Reconciled 08/14/23 by Angeline Brower RN blood sugar diagnostic (FreeStyle Lite Strips) As directed check the BS QD [CPAP RESMED NASAL MASK MEDIUM 11-14 cm H20 humidified air As directed] furosemide 60 mg (1.5 x 40 mg) PO DAILY 90 days lancets (FreeStyle Lancets) As directed check BS QD metformin 500 mg PO BID 90 days Oxygen Home Use As directed @L NC potassium chloride ER 20 mEq PO DAILY 90 days sildenafil (Viagra) 50 mg PO DAILY PRN simvastatin 10 mg PO BEDTIME warfarin 7.5 mg See Protocol PO DAILY 90 days Nursing Note INR: 2.3- in therapeutic range Medications and supplements reviewed- no changes No changes in health, diet, medications, or supplements, Denies any signs and symptoms of bleeding or bruising or clotting. Bleeding, bruising, clotting discussed Nutritional guidance given Dose: 3.75mg x 1. 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
[2023-08-14 09:03] LABS: ~PT, ~INR - Anti Coag Clinic 2.3 (0.9-1.1)
== END 2023-08-14 09:06 | disposition home or self-care (01) ==
LOC: HO.ACS 08:58
PROVIDERS: PCP Internal Medicine; Visit Provider Internal Medicine
DX: Z79.01 Long term (current) use of anticoagulants (principal)

== ENCOUNTER → 2023-08-14 08:58 | Outpatient (BNVA) | payer MEDICAID, SELFPAY | PROVIDERS: PCP Internal Medicine; Visit Provider Internal Medicine | DX: I87.1 Compression of vein (principal); Z79.01 Long term (current) use of anticoagulants; Z51.81 Encounter for therapeutic drug level monitoring | CPT/HCPCS: 85610; 99211 ==

== ENCOUNTER 2023-09-11 13:29 | Outpatient (AMB) | payer MEDICAID, SELFPAY ==
--- NOTE | 2023-09-11 13:40 | MHC.OFFVISCO ---
Intake Intake Visit Reasons: Anticoagulation Allergies No Known Allergies Allergy (Verified 09/11/23 13:30) Medication List - Last Reconciled 09/11/23 by Carol Garcia RN blood sugar diagnostic (FreeStyle Lite Strips) As directed check the BS QD [CPAP RESMED NASAL MASK MEDIUM 11-14 cm H20 humidified air As directed] furosemide 60 mg (1.5 x 40 mg) PO DAILY 90 days lancets (FreeStyle Lancets) As directed check BS QD metformin 500 mg PO BID 90 days Oxygen Home Use As directed @L NC potassium chloride ER 20 mEq PO DAILY 90 days sildenafil (Viagra) 50 mg PO DAILY PRN simvastatin 10 mg PO BEDTIME warfarin 7.5 mg See Protocol PO DAILY 90 days Nursing Note NO CP,SOB,DIET/MED CHANGES.FALLS OR SX OFN BLEEDING. CONTINUE PRESERNT DOSE AND FOLLOW-UP IN 4 WEEKS GOOD UNDERSTANDING OF DOSING INSTR. 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
[2023-09-12 06:45] LABS: Prothrombin Time Whole Bld POC 26.4 sec (11.1-13.5); ~PT, ~INR - Anti Coag Clinic 2.2 (0.9-1.1)
== END 2023-09-11 13:42 | disposition home or self-care (01) ==
LOC: HO.ACS 13:29
PROVIDERS: PCP Internal Medicine; Visit Provider Internal Medicine
DX: Z79.01 Long term (current) use of anticoagulants (principal)

== ENCOUNTER → 2023-09-11 13:29 | Outpatient (BNVA) | payer MEDICAID, SELFPAY | PROVIDERS: PCP Internal Medicine; Visit Provider Internal Medicine | DX: I87.1 Compression of vein (principal); Z79.01 Long term (current) use of anticoagulants; Z51.81 Encounter for therapeutic drug level monitoring | CPT/HCPCS: 85610; 99211 ==

== ENCOUNTER 2023-10-09 08:27 | Outpatient (AMB) | payer MEDICAID, SELFPAY ==
[2023-10-09 08:34] LABS: Prothrombin Time Whole Bld POC 27.6 sec (11.1-13.5); ~PT, ~INR - Anti Coag Clinic 2.3 (0.9-1.1)
--- NOTE | 2023-10-09 08:40 | MHC.OFFVISCO ---
Intake Intake Visit Reasons: Anticoagulation Allergies No Known Allergies Allergy (Verified 10/09/23 08:28) Medication List - Last Reconciled 10/09/23 by Carol Garcia RN blood sugar diagnostic (FreeStyle Lite Strips) As directed check the BS QD [CPAP RESMED NASAL MASK MEDIUM 11-14 cm H20 humidified air As directed] furosemide 60 mg (1.5 x 40 mg) PO DAILY 90 days lancets (FreeStyle Lancets) As directed check BS QD metformin 500 mg PO BID 90 days Oxygen Home Use As directed @L NC potassium chloride ER 20 mEq PO DAILY 90 days sildenafil (Viagra) 50 mg PO DAILY PRN simvastatin 10 mg PO BEDTIME warfarin 7.5 mg See Protocol PO DAILY 90 days Nursing Note NO CP,SOB,DIET/MED CHANGES,FALLS OR SX OF BLEEDING. CONTINUE PRESRNT DOSE AND FOLLOW-UP IN 4 WEEKS. GOOD UNDERSTANDING OF DOSING INSTR. Anti-Coag Initial Assessment Social Hx Patient Tobacco Use Status: Never used Tobacco Alcohol intake frequency: does not drink Coding Level of Care Code Est Patient Level 1 Diagnoses Current use of anticoagulant therapy Z79.01 Assessment & Plan Assessment & Plan (1) Current use of anticoagulant therapy: Code(s): Z79.01 - shelter (current) use of anticoagulants Category: Medical
== END 2023-10-09 08:42 | disposition home or self-care (01) ==
LOC: HO.ACS 08:27
PROVIDERS: PCP Internal Medicine; Visit Provider Internal Medicine
DX: Z79.01 Long term (current) use of anticoagulants (principal)

== ENCOUNTER → 2023-10-09 08:27 | Outpatient (BNVA) | payer MEDICAID, SELFPAY | PROVIDERS: PCP Internal Medicine; Visit Provider Internal Medicine | DX: I87.1 Compression of vein (principal); Z79.01 Long term (current) use of anticoagulants; Z51.81 Encounter for therapeutic drug level monitoring | CPT/HCPCS: 85610; 99211 ==

== ENCOUNTER 2023-11-06 08:25 | Outpatient (AMB) | payer MEDICAID, SELFPAY ==
[2023-11-06 08:34] LABS: Prothrombin Time Whole Bld POC 28.7 sec (11.1-13.5); ~PT, ~INR - Anti Coag Clinic 2.4 (0.9-1.1)
--- NOTE | 2023-11-06 08:39 | MHC.OFFVISCO ---
Intake Intake Visit Reasons: Anticoagulation Allergies No Known Allergies Allergy (Verified 11/06/23 08:29) Medication List - Last Reconciled 11/06/23 by Carol Garcia RN blood sugar diagnostic (FreeStyle Lite Strips) As directed check the BS QD [CPAP RESMED NASAL MASK MEDIUM 11-14 cm H20 humidified air As directed] furosemide 60 mg (1.5 x 40 mg) PO DAILY 90 days lancets (FreeStyle Lancets) As directed check BS QD metformin 500 mg PO BID 90 days Oxygen Home Use As directed @L NC potassium chloride ER 20 mEq PO DAILY 90 days sildenafil (Viagra) 50 mg PO DAILY PRN simvastatin 10 mg PO BEDTIME warfarin 7.5 mg See Protocol PO DAILY 90 days Nursing Note NO CP,SOB,DIET/MED CHANGES,FALLS OR SX OF BLEEDING. CONTINUW PRESENT DOSE AND FOLLOW-UP IN WEEKS. GOOD UNDERSTANDING OF DOSING INSTR. Anti-Coag Initial Assessment Social Hx Patient Tobacco Use Status: Never used Tobacco Alcohol intake frequency: does not drink Coding Level of Care Code Est Patient Level 1 Diagnoses Current use of anticoagulant therapy Z79.01 Assessment & Plan Assessment & Plan (1) Current use of anticoagulant therapy: Code(s): Z79.01 - meterman (current) use of anticoagulants Category: Medical
== END 2023-11-06 08:41 | disposition home or self-care (01) ==
LOC: HO.ACS 08:25
PROVIDERS: PCP Internal Medicine; Visit Provider Internal Medicine
DX: Z79.01 Long term (current) use of anticoagulants (principal)

== ENCOUNTER → 2023-11-06 08:25 | Outpatient (BNVA) | payer MEDICAID, SELFPAY | PROVIDERS: PCP Internal Medicine; Visit Provider Internal Medicine | DX: I87.1 Compression of vein (principal); Z79.01 Long term (current) use of anticoagulants; Z51.81 Encounter for therapeutic drug level monitoring | CPT/HCPCS: 85610; 99211 ==

== ENCOUNTER 2023-12-04 08:08 | Outpatient (AMB) | payer MEDICAID, SELFPAY ==
--- NOTE | 2023-12-04 08:12 | MHC.OFFVISCO ---
Intake Intake Visit Reasons: Anticoagulation Allergies No Known Allergies Allergy (Verified 12/04/23 08:09) Medication List - Last Reconciled 12/04/23 by Angeline Brower RN blood sugar diagnostic (FreeStyle Lite Strips) As directed check the BS QD [CPAP RESMED NASAL MASK MEDIUM 11-14 cm H20 humidified air As directed] furosemide 60 mg (1.5 x 40 mg) PO DAILY 90 days lancets (FreeStyle Lancets) As directed check BS QD metformin 500 mg PO BID 90 days Oxygen Home Use As directed @L NC potassium chloride ER 20 mEq PO DAILY 90 days sildenafil (Viagra) 50 mg PO DAILY PRN simvastatin 10 mg PO BEDTIME warfarin 7.5 mg See Protocol PO DAILY 90 days Nursing Note INR: 2.1- in therapeutic range of 2-3 Medications and supplements reviewed No changes in health, diet, medications, or supplements, Denies any signs and symptoms of bleeding or bruising or clotting. Bleeding, bruising, clotting discussed Nutritional guidance given Dose: 3.75mg x 1. 7.5mg x 6 F/U INR: 4 weeks Patient verbalizes understanding of instructions given Anti-Coag Initial Assessment Social Hx Patient Tobacco Use Status: Never used Tobacco Alcohol intake frequency: does not drink Coding Level of Care Code Est Patient Level 1 Diagnoses Current use of anticoagulant therapy Z79.01 Assessment & Plan Assessment & Plan (1) Current use of anticoagulant therapy: Code(s): Z79.01 - respiratory care assistant (current) use of anticoagulants Category: Medical
[2023-12-04 08:13] LABS: Prothrombin Time Whole Bld POC 25.7 sec (11.1-13.5); ~PT, ~INR - Anti Coag Clinic 2.1 (0.9-1.1)
== END 2023-12-04 08:18 | disposition home or self-care (01) ==
LOC: HO.ACS 08:08
PROVIDERS: PCP Internal Medicine; Visit Provider Internal Medicine
DX: Z79.01 Long term (current) use of anticoagulants (principal)

== ENCOUNTER → 2023-12-04 08:08 | Outpatient (BNVA) | payer MEDICAID, SELFPAY | PROVIDERS: PCP Internal Medicine; Visit Provider Internal Medicine | DX: I87.1 Compression of vein (principal); Z79.01 Long term (current) use of anticoagulants; Z51.81 Encounter for therapeutic drug level monitoring | CPT/HCPCS: 85610; 99211 ==

== ENCOUNTER 2024-01-01 08:16 | Outpatient (AMB) | payer MEDICAID, SELFPAY ==
--- NOTE | 2024-01-01 08:29 | MHC.OFFVISCO ---
Intake Intake Visit Reasons: Anticoagulation Allergies No Known Allergies Allergy (Verified 01/01/24 08:24) Medication List - Last Reconciled 01/01/24 by Angeline Brower RN blood sugar diagnostic (FreeStyle Lite Strips) As directed check the BS QD [CPAP RESMED NASAL MASK MEDIUM 11-14 cm H20 humidified air As directed] furosemide 60 mg (1.5 x 40 mg) PO DAILY 90 days lancets (FreeStyle Lancets) As directed check BS QD metformin 500 mg PO BID 90 days Oxygen Home Use As directed @L NC potassium chloride ER 20 mEq PO DAILY 90 days sildenafil (Viagra) 50 mg PO DAILY PRN simvastatin 10 mg PO BEDTIME warfarin 7.5 mg See Protocol PO DAILY 90 days Nursing Note INR: 2.2- in therapeutic range 2-3 Medications and supplements reviewed- no changes No changes in health, diet, medications, or supplements, Denies any signs and symptoms of bleeding or bruising or clotting. Bleeding, bruising, clotting discussed Nutritional guidance given Dose: 7.5mg x 6, 3.75mg x 1 F/U INR: 4 weeks Patient verbalizes understanding of instructions given Anti-Coag Initial Assessment Social Hx Patient Tobacco Use Status: Never used Tobacco Alcohol intake frequency: does not drink Coding Level of Care Code Est Patient Level 1 Diagnoses Current use of anticoagulant therapy Z79.01 Assessment & Plan Assessment & Plan (1) Current use of anticoagulant therapy: Code(s): Z79.01 - half-way (current) use of anticoagulants Category: Medical
[2024-01-01 08:30] LABS: Prothrombin Time Whole Bld POC 26.4 sec (11.1-13.5); ~PT, ~INR - Anti Coag Clinic 2.2 (0.9-1.1)
== END 2024-01-01 08:59 | disposition home or self-care (01) ==
LOC: HO.ACS 08:16
PROVIDERS: PCP Internal Medicine; Visit Provider Internal Medicine
DX: Z79.01 Long term (current) use of anticoagulants (principal)

== ENCOUNTER → 2024-01-01 08:16 | Outpatient (BNVA) | payer MEDICAID, SELFPAY | PROVIDERS: PCP Internal Medicine; Visit Provider Internal Medicine | DX: I87.1 Compression of vein (principal); Z79.01 Long term (current) use of anticoagulants; Z51.81 Encounter for therapeutic drug level monitoring | CPT/HCPCS: 85610; 99211 ==

== ENCOUNTER 2024-01-29 08:19 | Outpatient (AMB) | payer MEDICAID, SELFPAY ==
[2024-01-29 08:27] LABS: Prothrombin Time Whole Bld POC 28.1 sec (11.1-13.5); ~PT, ~INR - Anti Coag Clinic 2.3 (0.9-1.1)
--- NOTE | 2024-01-29 08:32 | MHC.OFFVISCO ---
Intake Intake Visit Reasons: Anticoagulation Allergies No Known Allergies Allergy (Verified 01/29/24 08:23) Medication List - Last Reconciled 01/29/24 by Carol Garcia RN blood sugar diagnostic (FreeStyle Lite Strips) As directed check the BS QD [CPAP RESMED NASAL MASK MEDIUM 11-14 cm H20 humidified air As directed] furosemide 60 mg (1.5 x 40 mg) PO DAILY 90 days lancets (FreeStyle Lancets) As directed check BS QD metformin 500 mg PO BID 90 days Oxygen Home Use As directed @L NC potassium chloride ER 20 mEq PO DAILY 90 days sildenafil (Viagra) 50 mg PO DAILY PRN simvastatin 10 mg PO BEDTIME warfarin 7.5 mg See Protocol PO DAILY 90 days Nursing Note NO CP,SOB,DIET/MED CHANBGES,FALLS OR SX OF BLEEDING. CONTINUE PRESENT DOSE AND FOLLOW-UP IN 4 WEEKS. GOOD UNDERSTANDING OF DOSING INSTR. Anti-Coag Initial Assessment Social Hx Patient Tobacco Use Status: Never used Tobacco Alcohol intake frequency: does not drink Coding Level of Care Code Est Patient Level 1 Diagnoses Current use of anticoagulant therapy Z79.01 Assessment & Plan Assessment & Plan (1) Current use of anticoagulant therapy: Code(s): Z79.01 - FPC (current) use of anticoagulants Category: Medical
== END 2024-01-29 08:33 | disposition home or self-care (01) ==
LOC: HO.ACS 08:19
PROVIDERS: PCP Internal Medicine; Visit Provider Internal Medicine
DX: Z79.01 Long term (current) use of anticoagulants (principal)

== ENCOUNTER → 2024-01-29 08:19 | Outpatient (BNVA) | payer MEDICAID, SELFPAY | PROVIDERS: PCP Internal Medicine; Visit Provider Internal Medicine | DX: I87.1 Compression of vein (principal); Z79.01 Long term (current) use of anticoagulants; Z51.81 Encounter for therapeutic drug level monitoring | CPT/HCPCS: 85610; 99211 ==

== ENCOUNTER 2024-02-26 08:10 | Outpatient (AMB) | payer MEDICAID, SELFPAY ==
[2024-02-26 08:34] LABS: Prothrombin Time Whole Bld POC 26.2 sec (11.1-13.5); ~PT, ~INR - Anti Coag Clinic 2.2 (0.9-1.1)
--- NOTE | 2024-02-26 08:37 | MHC.OFFVISCO ---
Intake Intake Visit Reasons: Anticoagulation Allergies No Known Allergies Allergy (Verified 02/26/24 08:28) Medication List - Last Reconciled 02/26/24 by Carol Garcia RN blood sugar diagnostic (FreeStyle Lite Strips) As directed check the BS QD [CPAP RESMED NASAL MASK MEDIUM 11-14 cm H20 humidified air As directed] furosemide 60 mg (1.5 x 40 mg) PO DAILY 90 days lancets (FreeStyle Lancets) As directed check BS QD metformin 500 mg PO BID 90 days Oxygen Home Use As directed @L NC potassium chloride ER 20 mEq PO DAILY 90 days sildenafil (Viagra) 50 mg PO DAILY PRN simvastatin 10 mg PO BEDTIME warfarin 7.5 mg See Protocol PO DAILY 90 days Nursing Note NO CP,SOB,DIET/MED CHANGES,FALLS OR SX OF BLEEDING. CONTINUE PRESENT DOSE AND FOLLOW-UP IN 4 WEEKS. GOOD UNDERSTANDING OF DOSING INSTR. Anti-Coag Initial Assessment Social Hx Patient Tobacco Use Status: Never used Tobacco Alcohol intake frequency: does not drink Coding Level of Care Code Est Patient Level 1 Diagnoses Current use of anticoagulant therapy Z79.01 Assessment & Plan Assessment & Plan (1) Current use of anticoagulant therapy: Code(s): Z79.01 - group home (current) use of anticoagulants Category: Medical
== END 2024-02-26 08:38 | disposition home or self-care (01) ==
LOC: HO.ACS 08:10
PROVIDERS: PCP Internal Medicine; Visit Provider Internal Medicine
DX: Z79.01 Long term (current) use of anticoagulants (principal)

== ENCOUNTER → 2024-02-26 08:10 | Outpatient (BNVA) | payer MEDICAID, SELFPAY | PROVIDERS: PCP Internal Medicine; Visit Provider Internal Medicine | DX: I87.1 Compression of vein (principal); Z51.81 Encounter for therapeutic drug level monitoring; Z79.01 Long term (current) use of anticoagulants | CPT/HCPCS: 85610; 99211 ==

== ENCOUNTER 2024-03-25 08:22 | Outpatient (AMB) | payer MEDICAID, SELFPAY ==
[2024-03-25 08:29] LABS: Prothrombin Time Whole Bld POC 23.9 sec (11.1-13.5)
--- NOTE | 2024-03-25 08:33 | MHC.OFFVISCO ---
Intake Intake Visit Reasons: Anticoagulation Allergies No Known Allergies Allergy (Verified 03/25/24 08:23) Medication List - Last Reconciled 03/25/24 by Carol Garcia RN blood sugar diagnostic (FreeStyle Lite Strips) As directed check the BS QD [CPAP RESMED NASAL MASK MEDIUM 11-14 cm H20 humidified air As directed] furosemide 60 mg (1.5 x 40 mg) PO DAILY 90 days lancets (FreeStyle Lancets) As directed check BS QD metformin 500 mg PO BID 90 days Oxygen Home Use As directed @L NC potassium chloride ER 20 mEq PO DAILY 90 days sildenafil (Viagra) 50 mg PO DAILY PRN simvastatin 10 mg PO BEDTIME warfarin 7.5 mg See Protocol PO DAILY 90 days Nursing Note NO CP,SOB,DIET/MED CHANGES,FALLS OR SX OF BLEEDING. CONTINUE PRESENT DOSE AND FOLLOW-UP IN 4 WEEKS. GOOD UYNDERSTANDING OF DOSING INSTR. Anti-Coag Initial Assessment Social Hx Patient Tobacco Use Status: Never used Tobacco Alcohol intake frequency: does not drink Coding Level of Care Code Est Patient Level 1 Diagnoses Current use of anticoagulant therapy Z79.01 Assessment & Plan Assessment & Plan (1) Current use of anticoagulant therapy: Code(s): Z79.01 - [facility] (current) use of anticoagulants Category: Medical
[2024-03-26 14:33] LABS: Prothrombin Time Whole Bld POC 23.9 sec (11.1-13.5)
== END 2024-03-25 08:34 | disposition home or self-care (01) ==
LOC: HO.ACS 08:22
PROVIDERS: PCP Internal Medicine; Visit Provider Internal Medicine
DX: Z79.01 Long term (current) use of anticoagulants (principal)

== ENCOUNTER → 2024-03-25 08:22 | Outpatient (BNVA) | payer MEDICAID, SELFPAY | PROVIDERS: PCP Internal Medicine; Visit Provider Internal Medicine | DX: I87.1 Compression of vein (principal); Z51.81 Encounter for therapeutic drug level monitoring; Z79.01 Long term (current) use of anticoagulants | CPT/HCPCS: 85610; 99211 ==

== ENCOUNTER 2024-04-08 10:04 | Outpatient (AMB) | payer MEDICAID, SELFPAY ==
--- NOTE | 2024-04-08 10:12 | A.OFFVIS_ITS ---
Vital Signs 04/08/24 10:13 Height 5 ft 6 in Weight 177 lb 4.026 oz BMI 28.6 BP 120/64 Blood Pressure Location Lt brachial Position Sitting Pulse 82 Intake Visit Reasons: 1 yr f/up Dinner Cook Required: No Accompanied by: Spouse Allergies No Known Allergies Allergy (Verified 03/25/24 08:23) Medication List - Last Reconciled 04/08/24 by Felton Foster MD blood sugar diagnostic (FreeStyle Lite Strips) As directed check the BS QD [CPAP RESMED NASAL MASK MEDIUM 11-14 cm H20 humidified air As directed] furosemide 60 mg (1.5 x 40 mg) PO DAILY 90 days lancets (FreeStyle Lancets) As directed check BS QD metformin 500 mg PO BID 90 days Oxygen Home Use As directed @L NC potassium chloride ER 20 mEq PO DAILY 90 days sildenafil (Viagra) 50 mg PO DAILY PRN simvastatin 10 mg PO BEDTIME warfarin 7.5 mg See Protocol PO DAILY 90 days HPI Comments Details: 53-year-old with 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 He had recurrent episodes of atrial flutter requiring cardioversion. He underwent ablation in July 2022 in [facility] by Dr. Michaels. He has been off metoprolol since then. He has no further episodes. Denying any symptoms at this point. Clinically not in heart failure. Compliant with medication including Coumadin. 04/08/24: He returns for follow-up. He has been doing well. No chest discomfort or shortness of breath. No heart failure episodes. Denying any palpitations since the ablation. Compliant with medications. 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 Mother Diabetes Son Autism Social History Household Members: Spouse Housing: House Do you presently have visiting nurse or other home services: No Unable to assess alcohol history related to: Unknown Patient Tobacco Use Status: Never used Tobacco e-Cigarette/Vaping Use: Never Used Second Hand Smoke Exposure: No Advance Directives Date on File: 10/16/21 service: No Current occupational status: employed Cognitive needs: No Hearing needs: No Vision needs: No Review of Systems Const Denies chills, Denies fatigue, Denies fever(s), Denies frequent falls, Denies weakness, Denies weight gain and Denies weight loss ENT Denies dizziness Card Denies chest pain, Denies leg edema, Denies lightheadedness, Denies palpitations, Denies dyspnea and Denies dyspnea on exertion Resp Denies cough, Denies dyspnea and Denies dyspnea on exertion GI Denies hematochezia Musc Denies abnormal gait, Denies muscle weakness, Denies numbness, Denies radiating pain into limb and Denies tingling Neuro Denies abnormal gait, Denies dizziness, Denies frequent falls, Denies numbness, Denies tingling and Denies weakness Endo Denies fatigue and Denies palpitations Physical Exam Vital Signs: Last Vital Signs Pulse 82 04/08/24 10:13 BP 120/64 04/08/24 10:13 BMI result Body Mass Index 28.6 GENERAL APPEARANCE: in no acute distress, pleasant. NECK: no carotid bruit, no jugular venous distention. SKIN: no suspicious lesions, warm and dry. HEART:? Systolic and diastolic murmur in pulmonic area. LUNGS:? Clear to auscultation bilaterally. ABDOMEN: soft, nontender. EXTREMITIES: no edema. PERIPHERAL PULSES: equal. NEUROLOGIC: No gross deficits, AAO X 3 Office Procedures EKG Details: AV dual paced 82 beats per minute, normal axis, QTC 535 milliseconds. 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 RV is the systemic ventricle. Code(s): Q24.9 - Congenital malformation of heart, unspecified Category: Medical (2) Atrial flutter: Code(s): I48.92 - Unspecified atrial flutter Category: Medical (3) Chronic diastolic heart failure: Code(s): I50.32 - Chronic diastolic (congestive) heart failure Category: Medical Plan Pleasant 53-year-old gentleman who is here for follow-up. He has congenital heart disease and follows with Dr. Dukes. Previously had atrial flutter requiring cardioversion and subsequently had EP study with ablation at [facility]. Taking medications regularly. He is off the metoprolol since the ablation. Euvolemic on examination. He will see us back in 1 year. Thank you for allowing me to participate in the care of your patient. Please feel free to contact me if you have any questions. Coding Level of Care Code Est Pt Level 4 (50783) Diagnoses Congenital heart disease Q24.9 Atrial flutter I48.92 Chronic diastolic heart failure I50.32 CPT Codes EKG - CPT: 93990-[id number], Complete ([id number])
[2024-04-08 10:13] VITALS: BP 120/64; PULSE 82; BMI 28.6
== END 2024-04-08 10:32 | disposition home or self-care (01) ==
PROVIDERS: PCP Internal Medicine; Visit Provider Internal Medicine Cardiovascular Disease
DX: Q24.9 Congenital malformation of heart, unspecified (principal); I48.92 Unspecified atrial flutter; I50.32 Chronic diastolic (congestive) heart failure
CPT/HCPCS: 93010; 99214

== ENCOUNTER → 2024-04-08 10:04 | Outpatient (BNVA) | payer MEDICAID, SELFPAY | PROVIDERS: PCP Internal Medicine; Visit Provider Internal Medicine Cardiovascular Disease | DX: I50.32 Chronic diastolic (congestive) heart failure (principal); I48.92 Unspecified atrial flutter; Q24.9 Congenital malformation of heart, unspecified; R94.31 Abnormal electrocardiogram [ECG] [EKG] | CPT/HCPCS: 93005; 99212 ==

== ENCOUNTER 2024-04-22 09:00 | Outpatient (AMB) | payer MEDICAID, SELFPAY ==
[2024-04-22 09:09] LABS: Prothrombin Time Whole Bld POC 23.2 sec (11.1-13.5); ~PT, ~INR - Anti Coag Clinic 1.9 (0.9-1.1)
--- NOTE | 2024-04-22 09:09 | MHC.OFFVISCO ---
Intake Intake Visit Reasons: Anticoagulation Allergies No Known Allergies Allergy (Verified 04/22/24 09:03) Medication List - Last Reconciled 04/22/24 by Angeline Brower RN blood sugar diagnostic (FreeStyle Lite Strips) As directed check the BS QD [CPAP RESMED NASAL MASK MEDIUM 11-14 cm H20 humidified air As directed] furosemide 60 mg (1.5 x 40 mg) PO DAILY 90 days lancets (FreeStyle Lancets) As directed check BS QD metformin 500 mg PO BID 90 days Oxygen Home Use As directed @L NC potassium chloride ER 20 mEq PO DAILY 90 days sildenafil (Viagra) 50 mg PO DAILY PRN simvastatin 10 mg PO BEDTIME warfarin 7.5 mg See Protocol PO DAILY 90 days Nursing Note INR 1.9-? out of therapeutic range of 2-3 Medications and supplements reviewed Patient status: pt exercising Medications or supplements: no changes Diet: same Denies any signs and symptoms of bleeding or clotting or unusual bruising Bleeding, bruising, clotting discussed Nutritional guidance given: no greens for 2 days Dose: 11.25mg today then cont 7.5mg x 6, 3.75mg x 1 F/U INR Date : 3 weeks Patient verbalizing understanding of instructions given. Anti-Coag Initial Assessment Social Hx Patient Tobacco Use Status: Never used Tobacco Alcohol intake frequency: does not drink Coding Level of Care Code Est Patient Level 1 Diagnoses Current use of anticoagulant therapy Z79.01 Assessment & Plan Assessment & Plan (1) Current use of anticoagulant therapy: Code(s): Z79.01 - [facility] (current[facility] use of anticoagulants Category: Medical
== END 2024-04-22 09:13 | disposition home or self-care (01) ==
LOC: HO.ACS 09:00
PROVIDERS: PCP Internal Medicine; Visit Provider Internal Medicine
DX: Z79.01 Long term (current) use of anticoagulants (principal)

== ENCOUNTER → 2024-04-22 09:00 | Outpatient (BNVA) | payer MEDICAID, SELFPAY | PROVIDERS: PCP Internal Medicine; Visit Provider Internal Medicine | DX: I87.1 Compression of vein (principal); Z51.81 Encounter for therapeutic drug level monitoring; Z79.01 Long term (current) use of anticoagulants | CPT/HCPCS: 85610; 99211 ==

== ENCOUNTER 2024-05-13 09:02 | Outpatient (AMB) | payer MEDICAID, SELFPAY ==
--- NOTE | 2024-05-13 09:07 | MHC.OFFVISCO ---
Intake Intake Visit Reasons: Anticoagulation Allergies No Known Allergies Allergy (Verified 05/13/24 09:03) Medication List - Last Reconciled 05/13/24 by Angeline Brower RN blood sugar diagnostic (FreeStyle Lite Strips) As directed check the BS QD [CPAP RESMED NASAL MASK MEDIUM 11-14 cm H20 humidified air As directed] furosemide 60 mg (1.5 x 40 mg) PO DAILY 90 days lancets (FreeStyle Lancets) As directed check BS QD metformin 500 mg PO BID 90 days Oxygen Home Use As directed @L NC potassium chloride ER 20 mEq PO DAILY 90 days sildenafil (Viagra) 50 mg PO DAILY PRN simvastatin 10 mg PO BEDTIME warfarin 7.5 mg See Protocol PO DAILY 90 days Nursing Note INR 1.9-? out of therapeutic range of 2-3 Medications and supplements reviewed Patient status: pt exercising Medications or supplements: no changes Diet: same, denies increased greens Denies any signs and symptoms of bleeding or clotting or unusual bruising Bleeding, bruising, clotting discussed Nutritional guidance given: no greens for 2 days Dose: 11.25mg today then increase weekly dosing to 7.5mg x 7 F/U INR Date : 2 weeks?? Patient verbalizing understanding of instructions given. Anti-Coag Initial Assessment Social Hx Patient Tobacco Use Status: Never used Tobacco Alcohol intake frequency: does not drink Coding Level of Care Code Est Patient Level 1 Diagnoses Current use of anticoagulant therapy Z79.01 Assessment & Plan Assessment & Plan (1) Current use of anticoagulant therapy: Code(s): Z79.01 - [facility] (current) use of anticoagulants Category: Medical
[2024-05-13 09:09] LABS: Prothrombin Time Whole Bld POC 22.9 sec (11.1-13.5); ~PT, ~INR - Anti Coag Clinic 1.9 (0.9-1.1)
== END 2024-05-13 09:14 | disposition home or self-care (01) ==
LOC: HO.ACS 09:02
PROVIDERS: PCP Internal Medicine; Visit Provider Internal Medicine
DX: Z79.01 Long term (current) use of anticoagulants (principal)

== ENCOUNTER → 2024-05-13 09:02 | Outpatient (BNVA) | payer MEDICAID, SELFPAY | PROVIDERS: PCP Internal Medicine; Visit Provider Internal Medicine | DX: I87.1 Compression of vein (principal); Z79.01 Long term (current) use of anticoagulants; Z51.81 Encounter for therapeutic drug level monitoring | CPT/HCPCS: 85610; 99211 ==

== ENCOUNTER 2024-05-27 09:34 | Outpatient (AMB) | payer MEDICAID, SELFPAY ==
--- NOTE | 2024-05-27 09:30 | MHC.OFFVISCO ---
Intake Intake Visit Reasons: Anticoagulation Allergies No Known Allergies Allergy (Verified 05/27/24 09:26) Medication List - Last Reconciled 05/27/24 by Angeline Brower RN blood sugar diagnostic (FreeStyle Lite Strips) As directed check the BS QD [CPAP RESMED NASAL MASK MEDIUM 11-14 cm H20 humidified air As directed] furosemide 60 mg (1.5 x 40 mg) PO DAILY 90 days lancets (FreeStyle Lancets) As directed check BS QD metformin 500 mg PO BID 90 days Oxygen Home Use As directed @L NC potassium chloride ER 20 mEq PO DAILY 90 days sildenafil (Viagra) 50 mg PO DAILY PRN simvastatin 10 mg PO BEDTIME warfarin 7.5 mg See Protocol PO DAILY 90 days Nursing Note INR: 2.5- in therapeutic range of 2-3 Medications and supplements reviewed No changes in health, diet, medications, or supplements, Denies any signs and symptoms of bleeding or bruising or clotting. 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
[2024-05-27 10:08] LABS: Prothrombin Time Whole Bld POC 30.4 sec (11.1-13.5); ~PT, ~INR - Anti Coag Clinic 2.5 (0.9-1.1)
== END 2024-05-27 09:36 | disposition home or self-care (01) ==
LOC: HO.ACS 09:34
PROVIDERS: PCP Internal Medicine; Visit Provider Internal Medicine
DX: Z79.01 Long term (current) use of anticoagulants (principal)

== ENCOUNTER → 2024-05-27 09:34 | Outpatient (BNVA) | payer MEDICAID, SELFPAY | PROVIDERS: PCP Internal Medicine; Visit Provider Internal Medicine | DX: I87.1 Compression of vein (principal); Z51.81 Encounter for therapeutic drug level monitoring; Z79.01 Long term (current) use of anticoagulants | CPT/HCPCS: 85610; 99211 ==

== ENCOUNTER 2024-06-24 09:12 | Outpatient (AMB) | payer MEDICAID, SELFPAY ==
--- NOTE | 2024-06-24 09:21 | MHC.OFFVISCO ---
Intake Intake Visit Reasons: Anticoagulation Allergies No Known Allergies Allergy (Verified 06/24/24 09:17) Medication List - Last Reconciled 06/24/24 by Angeline Brower RN blood sugar diagnostic (FreeStyle Lite Strips) As directed check the BS QD [CPAP RESMED NASAL MASK MEDIUM 11-14 cm H20 humidified air As directed] furosemide 60 mg (1.5 x 40 mg) PO DAILY 90 days lancets (FreeStyle Lancets) As directed check BS QD metformin 500 mg PO BID 90 days Oxygen Home Use As directed @L NC potassium chloride ER 20 mEq PO DAILY 90 days sildenafil (Viagra) 50 mg PO DAILY PRN simvastatin 10 mg PO BEDTIME warfarin 7.5 mg See Protocol PO DAILY 90 days Nursing Note INR: 2.1- in therapeutic range of 2-3 Medications and supplements reviewed No changes in health, diet, medications, or supplements, Denies any signs and symptoms of bleeding or bruising or clotting. Bleeding, bruising, clotting discussed Nutritional guidance given Dose: 7.5mg x 7 F/U INR: 4 weeks Patient verbalizes understanding of instructions given Anti-Coag Initial Assessment Social Hx Patient Tobacco Use Status: Never used Tobacco Alcohol intake frequency: does not drink Coding Level of Care Code Est Patient Level 1 Diagnoses Current use of anticoagulant therapy Z79.01 Results AMB INR Fingerstick AMB INR Fingerstick 2.1 Last Edit by Angeline Brower RN on 06/24/24 09:22 interface delay Assessment & Plan Assessment & Plan (1) Current use of anticoagulant therapy: Code(s): Z79.01 - [facility] (current) use of anticoagulants Category: Medical
[2024-06-24 09:23] LABS: ~PT, ~INR - Anti Coag Clinic 2.1 (0.9-1.1)
== END 2024-06-24 09:27 | disposition home or self-care (01) ==
LOC: HO.ACS 09:12
PROVIDERS: PCP Internal Medicine; Visit Provider Internal Medicine
DX: Z79.01 Long term (current) use of anticoagulants (principal)

== ENCOUNTER → 2024-06-24 09:12 | Outpatient (BNVA) | payer MEDICAID, SELFPAY | PROVIDERS: PCP Internal Medicine; Visit Provider Internal Medicine | DX: I87.1 Compression of vein (principal); Z79.01 Long term (current) use of anticoagulants; Z51.81 Encounter for therapeutic drug level monitoring | CPT/HCPCS: 85610; 99211 ==

== ENCOUNTER 2024-07-22 09:12 | Outpatient (AMB) | payer MEDICAID, SELFPAY ==
[2024-07-22 09:29] LABS: Prothrombin Time Whole Bld POC 28.2 sec (11.1-13.5); ~PT, ~INR - Anti Coag Clinic 2.4 (0.9-1.1)
--- NOTE | 2024-07-22 09:32 | MHC.OFFVISCO ---
Intake Intake Visit Reasons: Anticoagulation Allergies No Known Allergies Allergy (Verified 07/22/24 09:24) Medication List - Last Reconciled 07/22/24 by Carol Garcia RN blood sugar diagnostic (FreeStyle Lite Strips) As directed check the BS QD [CPAP RESMED NASAL MASK MEDIUM 11-14 cm H20 humidified air As directed] furosemide 60 mg (1.5 x 40 mg) PO DAILY 90 days lancets (FreeStyle Lancets) As directed check BS QD metformin 500 mg PO BID 90 days Oxygen Home Use As directed @L NC potassium chloride ER 20 mEq PO DAILY 90 days sildenafil (Viagra) 50 mg PO DAILY PRN simvastatin 10 mg PO BEDTIME warfarin 7.5 mg See Protocol PO DAILY 90 days Nursing Note NO CP,SOB,DIET/MED CHANGES,FALLS OR SX OF BLEEDING. CONTINUE PRESENT DOSE AND FOLLOW-UP IN 4 WEEKS GOOD UNDERSTANDING OF DOSING INSTR. 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
== END 2024-07-22 09:33 | disposition home or self-care (01) ==
LOC: HO.ACS 09:12
PROVIDERS: PCP Internal Medicine; Visit Provider Internal Medicine
DX: Z79.01 Long term (current) use of anticoagulants (principal)

== ENCOUNTER → 2024-07-22 09:12 | Outpatient (BNVA) | payer MEDICAID, SELFPAY | PROVIDERS: PCP Internal Medicine; Visit Provider Internal Medicine | DX: I87.1 Compression of vein (principal); Z79.01 Long term (current) use of anticoagulants; Z51.81 Encounter for therapeutic drug level monitoring | CPT/HCPCS: 85610; 99211 ==

== ENCOUNTER 2024-07-29 10:08 | Outpatient (AMB) | payer MEDICAID, SELFPAY ==
[2024-07-29 10:51] VITALS: BP 116/62; PULSE 91; O2SAT 94; BMI 29.4
--- NOTE | 2024-07-29 10:51 | MHC.PC.OV ---
Vital Signs 07/29/24 10:51 Height 5 ft 6 in Weight 182 lb BMI 29.4 BP 116/62 Blood Pressure Location Lt brachial Position Sitting Pulse 91 Pulse Source Pulse Oximeter Pulse Oximetry (%) 94 Oxygen Delivery Method Room Air Intake Visit Reasons: General Check Up, 6 min walk test Allergies No Known Allergies Allergy (Verified 07/29/24 10:52) Medication List - Last Reconciled 07/29/24 by Angie Fabian MD blood sugar diagnostic (FreeStyle Lite Strips) As directed check the BS QD [CPAP RESMED NASAL MASK MEDIUM 11-14 cm H20 humidified air As directed] furosemide 60 mg (1.5 x 40 mg) PO DAILY 90 days lancets (FreeStyle Lancets) As directed check BS QD metformin 500 mg PO BID 90 days Oxygen Home Use As directed @L NC potassium chloride ER 20 mEq PO DAILY 90 days sildenafil (Viagra) 50 mg PO DAILY PRN simvastatin 10 mg PO BEDTIME warfarin 7.5 mg See Protocol PO DAILY 90 days Tobacco use date assessed: 07/29/24 Dental Screening Dental Screen Date: 07/29/24 Did you have a dental visit in the last 12 months?: Yes Did you have a dental problem in the last 6 months where you did not have access to dental care?: No Was dental information given to patient?: Patient has dentist HPI General Check Up, 6 min walk test HPI Details 53-year-old overweight male with diabetes mellitus congestive heart failure atrial fibrillation hypercholesterolemia obstructive sleep apnea last seen in 01/14/2023. 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 Recurrent episodes of atrial flutter guarding cardioversion. Underwent ablation 08/14/2022. [facility]. Of metoprolol patient has pacemaker being checked. 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 Mother Diabetes Son Autism Social History Household Members: Spouse Housing: House Do you presently have visiting nurse or other home services: No Unable to assess alcohol history related to: Unknown Patient Tobacco Use Status: Never used Tobacco Tobacco use type: Cigarette e-Cigarette/Vaping Use: Never Used Second Hand Smoke Exposure: No Advance Directives Date on File: 10/16/21 service: No Current occupational status: employed Cognitive needs: No Hearing needs: No Vision needs: No Questionnaire PHQ-9 Over the last 2 weeks, how often have you been bothered by any of the following problems? 1. Little interest or pleasure in doing things: not at all 2. Feeling down, depressed, or hopeless: not at all 3. Trouble falling or staying asleep, or sleeping too much: not at all 4. Feeling tired or having little energy: not at all 5. Poor appetite or overeating: not at all 6. Feeling bad about yourself - or that you are a failure or have let yourself or your family down: not at all 7. Trouble concentrating on things, such as reading the newspaper or watching television: not at all 8. Moving or speaking so slowly that other people could have noticed. Or the opposite - being so fidgety or restless that you have been moving around a lot more than usual: not at all 9. Thoughts that you would be better off or of hurting yourself in some way: not at all Total score: 0 Depression Screening Interpretation: Negative Depression Screening Done: Yes Source: Developed by Drs. Carter Lott, Haydee Stockton, Nadir Mulligan and colleagues, with an educational shalini from [employer]. Thrive Questionnaire Date Thrive assessed: 07/29/24 I am a: Patient What is your living situation today?: I have a steady place to live Within the past 12 months, did the food you bought not last and you didn't have the money to get more?: Never true Within the past 12 months, did you worry whether your food would run out before you got money to buy more?: Never true Do you have trouble paying for medicines?: No Do you have trouble getting transportation to medical appointments?: No Do you have trouble paying your heating and electricity bill?: No Do you have trouble taking care of your child, family member or friend?: No Do you have trouble with day-to-day activities such as bathing, preparing meals, shopping, managing finances, etc.?: No Are you currently unemployed and looking for a job?: No Are you interested in more education?: No Currently or been in a relationship where the following occur: No concerns reported THRIVE Score: 0 AUDIT C Alcohol Use Questionnaire (AUDIT-C) 1. How often do you have a drink containing alcohol?: 2-4 times a month 2. How many drinks containing alcohol do you have on a typical day when you are drinking?: 1 or 2 3. How often do you have six or more drinks on one occasion?: Never Total Score: 2 MIKA-7 AMB Questionnaire MIKA-7 Date MIKA - 7 assessed: 07/29/24 Feeling nervous, anxious, or on edge: 0 = Not at all Not being able to stop or control worryin = Not at all Worrying too much about different things: 0 = Not at all Trouble relaxin = Not at all Being so restless that it is hard to sit still: 0 = Not at all Becoming easily annoyed or irritable: 0 = Not at all Feeling afraid as if something awful might happen: 0 = Not at all Total MIKA-7 score (0-4 normal; 5-9 mild; 10-14 moderate; 15-21 severe): 0 Source: Developed by Drs. Carter Lott, Haydee Stockton, Nadir Mulligan and colleagues, with an educational shalini from [employer]. Physical exam (Primary Care) Vital Signs: Last Vital Signs Pulse 91 07/29/24 10:51 BP 116/62 07/29/24 10:51 Pulse Ox 94 07/29/24 10:51 Oxygen Delivery Method Room Air 07/29/24 10:51 BMI result Body Mass Index 29.4 Tobacco/Smoking Status: Tobacco use Status Tobacco use date assessed 07/29/24 07/29/24 10:53 Patient Tobacco Use Status Never used Tobacco 07/29/24 10:53 Tobacco use type Cigarette 07/29/24 10:53 e-Cigarette/Vaping Use Never Used 07/29/24 10:53 PHQ-9: PHQ-9 Score PHQ-9: Total score 0 07/29/24 11:07 Depression Screening Interpretation: Negative Thrive Assessment: Date of Thrive Assessment Date Thrive assessed 07/29/24 07/29/24 10:53 Currently or been in a relationship where the following occur: No concerns reported Const General: alert; No acute distress Eyes Conjunctivae: conjunctivae normal Resp Auscultation: clear to auscultation bilaterally Cardio Rate: regular rate Rhythm: regular rhythm GI Inspection: Yes normal to inspection Extrem General: Yes normal to inspection and No edema Assessment and Plan Assessment & Plan (1) Type 2 diabetes mellitus with hyperglycemia: Comment: Dr. Lowe Code(s): E11.65 - Type 2 diabetes mellitus with hyperglycemia Qualifiers: Diabetes mellitus detention insulin use: without professor of chemistry use Qualified Code(s): E11.65 - Type 2 diabetes mellitus with hyperglycemia Plan: Decrease the amount of carbohydrate intake, pasta, bread, rice and potatoes are all sugar and that is aside from all the sweet stuff, remember that fruits are good but they are Sweet also. Hemoglobin A1c goal of less than 6.5. 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 RV is the systemic ventricle. Code(s): Q24.9 - Congenital malformation of heart, unspecified Plan: Patient continues to follow-up with cardiology (4) Atrial fibrillation: Comment: Ablation 2014 Code(s): I48.91 - Unspecified atrial fibrillation Qualifiers: Atrial fibrillation type: paroxysmal Qualified Code(s): I48.0 - Paroxysmal atrial fibrillation Plan: Continue with anticoagulation (5) Obstructive sleep apnea: Comment: Hypoxemia February 2021 overnight oximetry Code(s): G47.33 - Obstructive sleep apnea (adult) (pediatric) Plan: Patient is on CPAP with oxygen uses more than 4 hours a night and benefits from (6) Hypercholesterolemia: Code(s): E78.00 - Pure hypercholesterolemia, unspecified Plan: Avoid fried foods, chicken skin, eggs, butter margarine, pastries and meat. Be it pork or beef they have a lot of cholesterol LDL goal of less than 100 and triglyceride of less than 150. Patient needs blood (7) Chronic diastolic heart failure: Code(s): I50.32 - Chronic diastolic (congestive) heart failure Plan: Continue with furosemide and blood work requested. (8) Colonoscopy refused: Code(s): Z53.20 - Procedure and treatment not carried out because of patient's decision for unspecified reasons Orders: Orders Complete Blood Count Auto Diff Today E11.65 - Type 2 diabetes mellitus with hyperglycemia Comprehensive Met. Panel Today E11.65 - Type 2 diabetes mellitus with hyperglycemia Free T4 (Free Thyroxine) Today E11.65 - Type 2 diabetes mellitus with hyperglycemia Thyroid Stimulating Hormone Today E11.65 - Type 2 diabetes mellitus with hyperglycemia Vitamin B12 and Folate Today E11.65 - Type 2 diabetes mellitus with hyperglycemia Microalbumin, Random (w Creat) Today E11.65 - Type 2 diabetes mellitus with hyperglycemia Creatinine Urine Today E11.65 - Type 2 diabetes mellitus with hyperglycemia B Type Natriuretic Peptide Today E11.65 - Type 2 diabetes mellitus with hyperglycemia Prostate Specific Antigen Scr Today E11.65 - Type 2 diabetes mellitus with hyperglycemia Lipid Panel Today E11.65 - Type 2 diabetes mellitus with hyperglycemia, E78.00 - Pure hypercholesterolemia, unspecified Hemoglobin A1c Today E11.65 - Type 2 diabetes mellitus with hyperglycemia UA CC w/rflx Micro + Cult Today E11.65 - Type 2 diabetes mellitus with hyperglycemia, R30.0 - Dysuria Magnesium Today E11.65 - Type 2 diabetes mellitus with hyperglycemia Phosphorus Today E11.65 - Type 2 diabetes mellitus with hyperglycemia Medications: New blood-glucose meter (FreeStyle Lite Meter kit) As directed 1 ea 0RF E11.65 - Type 2 diabetes mellitus with hyperglycemia Coding Level of Care Code Est Pt Level 4 (62146) Diagnoses Type 2 diabetes mellitus with hyperglycemia, without long-term current use of insulin E11.65 Diabetes mellitus detention insulin use: without detention use Overweight (BMI 25.0-29.9) E66.3 Congenital heart disease Q24.9 Paroxysmal atrial fibrillation I48.0 Atrial fibrillation type: paroxysmal Obstructive sleep apnea G47.33 Hypercholesterolemia E78.00 Chronic diastolic heart failure I50.32 Colonoscopy refused Z53.20
== END 2024-07-29 11:45 | disposition home or self-care (01) ==
PROVIDERS: PCP Internal Medicine; Visit Provider Internal Medicine
DX: E11.65 Type 2 diabetes mellitus with hyperglycemia (principal); I48.0 Paroxysmal atrial fibrillation; I50.32 Chronic diastolic (congestive) heart failure; E66.3 Overweight; Q24.9 Congenital malformation of heart, unspecified; G47.33 Obstructive sleep apnea (adult) (pediatric); E78.00 Pure hypercholesterolemia, unspecified; Z53.20 Procedure and treatment not carried out because of patient's decision for unspecified reasons
CPT/HCPCS: 99214

== ENCOUNTER 2024-08-08 07:18 | Outpatient (REF) | payer MEDICAID, SELFPAY ==
[2024-08-08 07:39] LABS: MANUAL DIFF FLAG NO
[2024-08-08 08:53] LABS: Basophils Percent Auto 0.7 % (0-2); Eosinophils Absolute Auto 0.2 X10*3/uL (0.0-0.4); Eosinophils Percent Auto 2.8 % (0-4); Hematocrit 43.1 % (42.0-52.0); Imm Gran Abs Auto 0.01 X10*3/uL (0.00-0.03); Imm Gran Pct Auto 0.2 % (0.0-0.4); Lymphocytes Absolute Auto 1.9 X10*3/uL (1.2-4.9); Mean Corpuscular HGB Conc 32.5 g/dl (31.0-36.0); Mean Corpuscular Volume 95.4 fL (80.0-98.0); Mean Platelet Volume 11.8 fL (9.4-12.4); Monocytes Absolute Auto 0.5 X10*3/uL (0.1-1.2); Monocytes Percent Auto 8.7 % (2-11); Neutrophils Absolute Auto 3.1 x10*3/uL (2.0-8.3); Neutrophils Percent Auto 54.6 % (45-73); Platelet Count 151 X10*3/uL (160-400); Red Blood Count 4.52 X10*6/uL (4.60-5.80); Red Cell Distribution Width 13.2 % (11.0-16.0); White Blood Count 5.7 X10*3/uL (4.8-10.8)
[2024-08-08 09:01] LABS: Appearance Urine Cloudy; Color Urine Dark Yellow; Glucose Urine UA Negative (Negative); Leukocyte Esterase Urine Trace (Negative); Nitrite Urine Negative (Negative); PH 5.5 (5.0-9.0); Specific Gravity - Urine 1.025 (1.005-1.025); UMIC TRIGGER UACC YES; Urine Blood Large (3+) (Negative); Urine Ketones Trace mg/dL (Negative); Urine Protein 30 (1+) mg/dL (Neg-Trace)
[2024-08-08 09:07] LABS: Bacteria Urine None Seen (None Seen); Hyaline Casts Urine 0-2 /LPF (0-2); RBC Urine >20 /HPF (0-2); Squamous Epithelial Cell Urine 0-2 /HPF (0-2); WBC Urine 0-5 /HPF (0-5)
[2024-08-08 09:10] LABS: Estimated Average Glucose 154 mg/dL
[2024-08-08 09:13] LABS: B Type Natriuretic Peptide 684 pg/mL (<100)
[2024-08-08 09:28] LABS: Creatinine Urine 232.38 mg/dL; Microalbum/Creatinine Ratio Ur 42.1 ug/mg cr (<30)
[2024-08-08 09:33] LABS: Alanine Aminotransferase 19 U/L (0-40); Albumin Level 4.2 g/dL (3.5-5.0); Alkaline Phosphatase 68 U/L (39-117); Anion Gap 14 (12-20); Aspartate Amino Transferase 21 U/L (5-37); Bilirubin Total 0.8 mg/dL (0.0-1.0); Blood Urea Nitrogen 20 mg/dL (9-16); Calcium 9.3 mg/dL (8.4-10.2); Carbon Dioxide 27 mmol/L (22-29); Chloride 104 mmol/L (96-108); Cholesterol 127 mg/dL (<200); Estimated Glomerular Filt Rate > 60; Glucose Random 131 mg/dL (60-115); HDL Cholesterol 39 mg/dL (>40); LDL Cholesterol Calculated 68 mg/dL (<100); Magnesium 2.1 mg/dL (1.6-2.6); Phosphorus 3.4 mg/dL (2.7-4.5); Potassium 3.8 mmol/L (3.3-5.1); Sodium 141 mmol/L (135-145); Total Protein 6.7 g/dL (6.5-8.0); Triglycerides 100 mg/dL (<150)
[2024-08-08 09:37] LABS: Free T4 (Free Thyroxine) 1.01 ng/dL (0.71-1.85); Thyroid Stimulating Hormone 1.34 uIU/mL (0.32-4.0)
[2024-08-08 09:52] LABS: Folate 17.1 ng/mL (> or = 4.0); Prostate Specific Antigen Scr 3.65 ng/mL (<0.05-4.0); Vitamin B12 837 pg/mL (200-900)
== END 2024-08-08 07:19 | disposition home or self-care (01) ==
LOC: HO.LAB 07:18
PROVIDERS: PCP Internal Medicine; Visit Provider Internal Medicine
DX: E11.65 Type 2 diabetes mellitus with hyperglycemia (principal); E78.00 Pure hypercholesterolemia, unspecified
CPT/HCPCS: 36415; 80053; 80061; 81001; 81003; 82043; 82570; 82607; 82746; 83036; 83735; 83880; 84100; 84153; 84439; 84443; 85025

== ENCOUNTER 2024-08-19 09:06 | Outpatient (AMB) | payer MEDICAID, SELFPAY ==
[2024-08-19 09:12] LABS: Prothrombin Time Whole Bld POC 28.8 sec (11.1-13.5); ~PT, ~INR - Anti Coag Clinic 2.4 (0.9-1.1)
--- NOTE | 2024-08-19 09:16 | MHC.OFFVISCO ---
Intake Intake Visit Reasons: Anticoagulation Allergies No Known Allergies Allergy (Verified 08/19/24 09:07) Medication List - Last Reconciled 08/19/24 by Carol Garcia RN blood sugar diagnostic (FreeStyle Lite Strips) As directed check the BS QD blood-glucose meter (FreeStyle Lite Meter kit) As directed [CPAP RESMED NASAL MASK MEDIUM 11-14 cm H20 humidified air As directed] furosemide 60 mg (1.5 x 40 mg) PO DAILY 90 days lancets (FreeStyle Lancets) As directed check BS QD metformin 500 mg PO BID 90 days Oxygen Home Use As directed @L NC potassium chloride ER 20 mEq PO DAILY 90 days sildenafil (Viagra) 50 mg PO DAILY PRN simvastatin 10 mg PO BEDTIME warfarin 7.5 mg See Protocol PO DAILY 90 days Nursing Note NO CP,SOB,DIET/MED CHANGES,FALLS OR SX OF BLEEDING. CONTINUE 7.5MGM DAILY AND FOLLOW-UP IN 4 WEEKS. GOOD UNDERSTANDING OF DOSING INSTR. Anti-Coag Initial Assessment Social Hx Patient Tobacco Use Status: Never used Tobacco Tobacco use type: Cigarette Alcohol intake frequency: does not drink Coding Level of Care Code Est Patient Level 1 Diagnoses Current use of anticoagulant therapy Z79.01 Assessment & Plan Assessment & Plan (1) Current use of anticoagulant therapy: Code(s): Z79.01 - [facility]DC (current) use of anticoagulants Category: Medical
== END 2024-08-19 09:19 | disposition home or self-care (01) ==
LOC: HO.ACS 09:06
PROVIDERS: PCP Internal Medicine; Visit Provider Internal Medicine
DX: Z79.01 Long term (current) use of anticoagulants (principal)

== ENCOUNTER → 2024-08-19 09:06 | Outpatient (BNVA) | payer MEDICAID, SELFPAY | PROVIDERS: PCP Internal Medicine; Visit Provider Internal Medicine | DX: I87.1 Compression of vein (principal); Z79.01 Long term (current) use of anticoagulants; Z51.81 Encounter for therapeutic drug level monitoring | CPT/HCPCS: 85610; 99211 ==

== ENCOUNTER 2024-09-16 09:02 | Outpatient (AMB) | payer MEDICAID, SELFPAY ==
[2024-09-16 09:12] LABS: Prothrombin Time Whole Bld POC 28.4 sec (11.1-13.5); ~PT, ~INR - Anti Coag Clinic 2.4 (0.9-1.1)
--- NOTE | 2024-09-16 09:19 | MHC.OFFVISCO ---
Intake Intake Visit Reasons: Anticoagulation Allergies No Known Allergies Allergy (Verified 09/16/24 09:05) Medication List - Last Reconciled 09/16/24 by Carol Garcia RN blood sugar diagnostic (FreeStyle Lite Strips) As directed check the BS QD blood-glucose meter (FreeStyle Lite Meter kit) As directed [CPAP RESMED NASAL MASK MEDIUM 11-14 cm H20 humidified air As directed] furosemide 60 mg (1.5 x 40 mg) PO DAILY 90 days lancets (FreeStyle Lancets) As directed check BS QD metformin 500 mg PO BID 90 days Oxygen Home Use As directed @L NC potassium chloride ER 20 mEq PO DAILY 90 days sildenafil (Viagra) 50 mg PO DAILY PRN simvastatin 10 mg PO BEDTIME warfarin 7.5 mg See Protocol PO DAILY 90 days Nursing Note NO CP,SOB,DIET/MED CHANGES,FALLS OR SX OF BLEEDING. CONTINUE PRESENT DOSE AND FOLLOW-UP IN 4 WEEKS. GOOD UNDERSTANDING OF DOSING INSTR. Anti-Coag Initial Assessment Social Hx Patient Tobacco Use Status: Never used Tobacco Tobacco use type: Cigarette Alcohol intake frequency: does not drink Coding Level of Care Code Est Patient Level 1 Diagnoses Current use of anticoagulant therapy Z79.01 Assessment & Plan Assessment & Plan (1) Current use of anticoagulant therapy: Code(s): Z79.01 - senior living (current) use of anticoagulants Category: Medical
== END 2024-09-16 09:20 | disposition home or self-care (01) ==
LOC: HO.ACS 09:02
PROVIDERS: PCP Internal Medicine; Visit Provider Internal Medicine
DX: Z79.01 Long term (current) use of anticoagulants (principal)

== ENCOUNTER → 2024-09-16 09:02 | Outpatient (BNVA) | payer MEDICAID, SELFPAY | PROVIDERS: PCP Internal Medicine; Visit Provider Internal Medicine | DX: G47.33 Obstructive sleep apnea (adult) (pediatric) (principal); G47.34 Idiopathic sleep related nonobstructive alveolar hypoventilation; I87.1 Compression of vein; Z79.01 Long term (current) use of anticoagulants; Z51.81 Encounter for therapeutic drug level monitoring | CPT/HCPCS: 85610; 99202; 99211 ==

== ENCOUNTER 2024-09-16 10:31 | Outpatient (AMB) | payer MEDICAID, SELFPAY ==
[2024-09-16 10:35] VITALS: BP 98/62; PULSE 90; O2SAT 95; BMI 29.5
--- NOTE | 2024-09-16 10:35 | A.OFFVIS_ITS ---
Vital Signs 09/16/24 10:35 Height 5 ft 6 in Weight 183 lb BMI 29.5 BP 98/62 Blood Pressure Location Rt brachial Position Sitting Pulse 90 Pulse Source Doppler Pulse Oximetry (%) 95 Oxygen Delivery Method Room Air Intake Visit Reasons: payal Allergies No Known Allergies Allergy (Verified 09/16/24 09:05) HPI HPI payal: Details: 54-year-old gentleman with underlying history of severe obstructive sleep apnea with sleep study approximately 12 years prior on CPAP therapy presents to [facility] care. Patient states that he has been using his CPAP previously with good control of his symptoms, unfortunately, his machine is not functioning well plus he had significant weight changes over the last 12 years. He is interested in continuing his CPAP therapy. He also has nocturnal hypoxia and uses supplemental oxygen at 2 L continuous flow with his CPAP. 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 Mother Diabetes Son Autism Social History Household Members: Spouse Housing: House Do you presently have visiting nurse or other home services: No Unable to assess alcohol history related to: Unknown Patient Tobacco Use Status: Never used Tobacco Tobacco use type: Cigarette e-Cigarette/Vaping Use: Never Used Second Hand Smoke Exposure: No Advance Directives Date on File: 10/16/21 service: No Current occupational status: employed Cognitive needs: No Hearing needs: No Vision needs: No Review of Systems Const Denies daytime sleepiness, Denies excessive sweating, Denies fatigue, Denies fever(s), Denies lethargy, Denies malaise, Denies night sweats, Denies snoring and Denies weight loss Eyes Denies blurry vision and Denies itchy eyes ENT Denies nasal congestion, Denies post nasal drip, Denies sinus pain, Denies sinus pressure and Denies other ( Thrush) Card Denies chest pain, Denies pedal edema, Denies dyspnea, Denies orthopnea and Denies paroxysmal nocturnal dyspnea Resp Denies cough, Denies hemoptysis, Denies excessive phlegm production, Denies dy spnea, Denies snoring and Denies wheezing GI Denies abdominal pain and Denies heartburn Musc Denies myalgias, Denies arthralgias and Denies joint swelling Skin/Breast Denies rash Neuro Denies memory loss and Denies seizure-like activity Psych Denies abnormal sleep pattern, Denies anxiety and Denies memory loss Endo Denies excessive sweating, Denies fatigue and Denies heat intolerance Milton/Lymph Denies easy bruising Aller/Immun Denies itchy eyes, Denies seasonal rhinorrhea and Denies wheezing Physical Exam Vital Signs: Last Vital Signs Pulse 90 09/16/24 10:35 BP 98/62 09/16/24 10:35 Pulse Ox 95 09/16/24 10:35 Oxygen Delivery Method Room Air 09/16/24 10:35 BMI result Body Mass Index 29.5 Const General: no acute distress and alert Nutritional Appearance: not obese Orientation/consciousness: Other orientation findings ( oriented) HEENT Head: Yes atraumatic Eyes General: appearance normal, both eyes and all related structures Sclerae: sclerae normal EOM: EOMs intact bilaterally Neck Neck: Yes supple Lymphatic: no lymphadenopathy noted Resp Effort & Inspection: normal respiratory effort and no use of accessory muscles Auscultation: clear to auscultation bilaterally Cardio Rate: regular rate Rhythm: regular rhythm Heart sounds: no gallops, no murmurs and no rubs Skin General skin exam: other ( warm) Extrem General: No clubbing, No cyanosis and No edema Assessment & Plan Assessment & Plan (1) Obstructive sleep apnea: Comment: Hypoxemia February 2021 overnight oximetry Code(s): G47.33 - Obstructive sleep apnea (adult) (pediatric) Category: Medical Plan: Last sleep study over 12 years prior with weight changes since. Will obtain new sleep study. (2) Nocturnal hypoxemia: Code(s): G47.34 - Idiopathic sleep related nonobstructive alveolar hypoventilation Category: Medical Plan: Continue nocturnal supplemental oxygen. Orders: Orders RT home sleep study Today G47.33 - Obstructive sleep apnea (adult) (pediatric) Coding Level of Care Code New Pt Level 4 (19995) Diagnoses Obstructive sleep apnea G47.33 Nocturnal hypoxemia G47.34
== END 2024-09-16 10:49 | disposition home or self-care (01) ==
PROVIDERS: PCP Internal Medicine; Visit Provider Internal Medicine Pulmonary Disease
DX: G47.33 Obstructive sleep apnea (adult) (pediatric) (principal); G47.34 Idiopathic sleep related nonobstructive alveolar hypoventilation
CPT/HCPCS: 99204

== ENCOUNTER 2024-10-14 08:57 | Outpatient (AMB) | payer MEDICAID, SELFPAY ==
--- NOTE | 2024-10-14 09:05 | MHC.OFFVISCO ---
Intake Intake Visit Reasons: Anticoagulation Allergies No Known Allergies Allergy (Verified 10/14/24 09:02) Medication List - Last Reconciled 10/14/24 by Angeline Brower RN blood sugar diagnostic (FreeStyle Lite Strips) As directed check the BS QD blood-glucose meter (FreeStyle Lite Meter kit) As directed [CPAP RESMED NASAL MASK MEDIUM 11-14 cm H20 humidified air As directed] furosemide 60 mg (1.5 x 40 mg) PO DAILY 90 days lancets (FreeStyle Lancets) As directed check BS QD metformin 500 mg PO BID 90 days Oxygen Home Use As directed @L NC potassium chloride ER 20 mEq PO DAILY 90 days sildenafil (Viagra) 50 mg PO DAILY PRN simvastatin 10 mg PO BEDTIME warfarin 7.5 mg See Protocol PO DAILY 90 days Nursing Note INR: 2.1- in therapeutic range of 2-3 Medications and supplements reviewed- no changes No changes in health, diet, medications, or supplements, Denies any signs and symptoms of bleeding or bruising or clotting. Bleeding, bruising, clotting discussed Nutritional guidance given Dose: 7.5mg x 7 F/U INR: 4 weeks Patient verbalizes understanding of instructions given Anti-Coag Initial Assessment Social Hx Patient Tobacco Use Status: Never used Tobacco Tobacco use type: Cigarette Alcohol intake frequency: does not drink Coding Level of Care Code Est Patient Level 1 Diagnoses Current use of anticoagulant therapy Z79.01 Results AMB INR Fingerstick AMB INR Fingerstick 2.1 Last Edit by Angeline Brower RN on 10/14/24 09:06 interface delay Assessment & Plan Assessment & Plan (1) Current use of anticoagulant therapy: Code(s): Z79.01 - group home (current) use of anticoagulants Category: Medical
[2024-10-14 09:06] LABS: Prothrombin Time Whole Bld POC 25.3 sec (11.1-13.5); ~PT, ~INR - Anti Coag Clinic 2.1 (0.9-1.1)
== END 2024-10-14 09:12 | disposition home or self-care (01) ==
LOC: HO.ACS 08:57
PROVIDERS: PCP Internal Medicine; Visit Provider Internal Medicine
DX: Z79.01 Long term (current) use of anticoagulants (principal)

== ENCOUNTER → 2024-10-14 08:57 | Outpatient (BNVA) | payer MEDICAID, SELFPAY | PROVIDERS: PCP Internal Medicine; Visit Provider Internal Medicine | DX: I87.1 Compression of vein (principal); Z79.01 Long term (current) use of anticoagulants; Z51.81 Encounter for therapeutic drug level monitoring | CPT/HCPCS: 85610; 99211 ==

== ENCOUNTER → 2024-10-28 12:57 | Outpatient (REF) | payer MEDICAID, SELFPAY | LOC: HO.SL 12:57 | PROVIDERS: PCP Internal Medicine; Visit Provider Internal Medicine Pulmonary Disease | DX: G47.33 Obstructive sleep apnea (adult) (pediatric) (principal) | CPT/HCPCS: 95806 ==

== ENCOUNTER → 2024-10-29 13:21 | Outpatient (BNV) | payer MEDICAID, SELFPAY | PROVIDERS: PCP Internal Medicine; Visit Provider Internal Medicine | DX: G47.33 Obstructive sleep apnea (adult) (pediatric) (principal) | CPT/HCPCS: 95806 ==

== ENCOUNTER 2024-11-11 08:52 | Outpatient (AMB) | payer MEDICAID, SELFPAY ==
--- NOTE | 2024-11-11 09:07 | MHC.OFFVISCO ---
Intake Intake Visit Reasons: Anticoagulation Allergies No Known Allergies Allergy (Verified 11/11/24 09:02) Medication List - Last Reconciled 11/11/24 by Angeline Brower RN blood sugar diagnostic (FreeStyle Lite Strips) As directed check the BS QD blood-glucose meter (FreeStyle Lite Meter kit) As directed [CPAP RESMED NASAL MASK MEDIUM 11-14 cm H20 humidified air As directed] furosemide 60 mg (1.5 x 40 mg) PO DAILY 90 days lancets (FreeStyle Lancets) As directed check BS QD metformin 500 mg PO BID 90 days Oxygen Home Use As directed @L NC potassium chloride ER 20 mEq PO DAILY 90 days sildenafil (Viagra) 50 mg PO DAILY PRN simvastatin 10 mg PO BEDTIME warfarin 7.5 mg See Protocol PO DAILY 90 days Nursing Note INR: 2.4- in therapeutic range of 2-3 Medications and supplements reviewed No changes in health, diet, medications, or supplements, Denies any signs and symptoms of bleeding or bruising or clotting. Bleeding, bruising, clotting discussed Nutritional guidance given Dose: 7.5mg x 7 F/U INR: 4 weeks Patient verbalizes understanding of instructions given Anti-Coag Initial Assessment Social Hx Patient Tobacco Use Status: Never used Tobacco Tobacco use type: Cigarette Alcohol intake frequency: does not drink Coding Level of Care Code Est Patient Level 1 Diagnoses Current use of anticoagulant therapy Z79.01 Assessment & Plan Assessment & Plan (1) Current use of anticoagulant therapy: Code(s): Z79.01 - retirement (current) use of anticoagulants Category: Medical
[2024-11-11 09:08] LABS: Prothrombin Time Whole Bld POC 29.2 sec (11.1-13.5); ~PT, ~INR - Anti Coag Clinic 2.4 (0.9-1.1)
== END 2024-11-11 09:23 | disposition home or self-care (01) ==
LOC: HO.ACS 08:52
PROVIDERS: PCP Internal Medicine; Visit Provider Internal Medicine
DX: Z79.01 Long term (current) use of anticoagulants (principal)

== ENCOUNTER → 2024-11-11 08:52 | Outpatient (BNVA) | payer MEDICAID, SELFPAY | PROVIDERS: PCP Internal Medicine; Visit Provider Internal Medicine | DX: I87.1 Compression of vein (principal); Z79.01 Long term (current) use of anticoagulants; Z51.81 Encounter for therapeutic drug level monitoring | CPT/HCPCS: 85610; 99211 ==

== ENCOUNTER 2024-12-09 08:52 | Outpatient (AMB) | payer MEDICAID, SELFPAY ==
--- NOTE | 2024-12-09 09:05 | MHC.OFFVISCO ---
Intake Intake Visit Reasons: Anticoagulation Allergies No Known Allergies Allergy (Verified 12/09/24 09:00) Nursing Note INR: 2.7- in therapeutic range of 2-3 Medications and supplements reviewed- no changes No changes in health, diet, medications, or supplements, Denies any signs and symptoms of bleeding or bruising or clotting. Bleeding, bruising, clotting discussed Nutritional guidance given Dose: 7.5mg x 7 F/U INR: 4 weeks Patient verbalizes understanding of instructions given Anti-Coag Initial Assessment Social Hx Patient Tobacco Use Status: Never used Tobacco Tobacco use type: Cigarette Alcohol intake frequency: does not drink Coding Level of Care Code Est Patient Level 1 Diagnoses Current use of anticoagulant therapy Z79.01 Results AMB INR Fingerstick AMB INR Fingerstick 2.7 Last Edit by Angeline Brower RN on 12/09/24 09:06 interface delay Assessment & Plan Assessment & Plan (1) Current use of anticoagulant therapy: Code(s): Z79.01 - skilled nursing (current) use of anticoagulants Category: Medical
[2024-12-09 09:06] LABS: Prothrombin Time Whole Bld POC 32.3 sec (11.1-13.5); ~PT, ~INR - Anti Coag Clinic 2.7 (0.9-1.1)
== END 2024-12-09 09:19 | disposition home or self-care (01) ==
LOC: HO.ACS 08:52
PROVIDERS: PCP Internal Medicine; Visit Provider Internal Medicine
DX: Z79.01 Long term (current) use of anticoagulants (principal)

== ENCOUNTER → 2024-12-09 08:52 | Outpatient (BNVA) | payer MEDICAID, SELFPAY | PROVIDERS: PCP Internal Medicine; Visit Provider Internal Medicine | DX: I87.1 Compression of vein (principal); Z79.01 Long term (current) use of anticoagulants; Z51.81 Encounter for therapeutic drug level monitoring | CPT/HCPCS: 85610; 99211 ==

== ENCOUNTER 2024-12-16 10:27 | Outpatient (AMB) | payer MEDICAID, SELFPAY ==
[2024-12-16 10:34] VITALS: BP 98/62; PULSE 81; O2SAT 96; BMI 29.4
--- NOTE | 2024-12-16 10:34 | A.OFFVIS_ITS ---
Vital Signs 12/16/24 10:34 Height 5 ft 6 in Weight 182 lb BMI 29.4 BP 98/62 Blood Pressure Location Rt brachial Position Sitting Pulse 81 Pulse Source Doppler Pulse Oximetry (%) 96 Oxygen Delivery Method Room Air Intake Visit Reasons: Obstructive sleep apnea Allergies No Known Allergies Allergy (Verified 12/16/24 10:40) HPI HPI Obstructive sleep apnea: Details: 54-year-old gentleman with underlying history of severe obstructive sleep apnea with sleep study approximately 12 years prior on CPAP therapy presents to establish care. Patient states that he has been using his CPAP previously with good control of his symptoms, unfortunately, his machine is not functioning well plus he had significant weight changes over the last 12 years. He is interested in continuing his CPAP therapy. He also has nocturnal hypoxia and uses supplemental oxygen at 2 L continuous flow with his CPAP. After the last office visit patient had repeat sleep study that demonstrated severe obstructive sleep apnea with AHI of 45. APAP was ordered, however patient has not received it yet. 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 Mother Diabetes Son Autism Social History Household Members: Spouse Housing: House Do you presently have visiting nurse or other home services: No Unable to assess alcohol history related to: Unknown Patient Tobacco Use Status: Never used Tobacco Tobacco use type: Cigarette e-Cigarette/Vaping Use: Never Used Second Hand Smoke Exposure: No Advance Directives Date on File: 10/16/21 service: No Current occupational status: employed Cognitive needs: No Hearing needs: No Vision needs: No Physical Exam Vital Signs: Last Vital Signs Pulse 81 12/16/24 10:34 BP 98/62 12/16/24 10:34 Pulse Ox 96 12/16/24 10:34 Oxygen Delivery Method Room Air 12/16/24 10:34 BMI result Body Mass Index 29.4 Assessment & Plan Assessment & Plan (1) Nocturnal hypoxemia: Code(s): G47.34 - Idiopathic sleep related nonobstructive alveolar hypoventilation Category: Medical Plan: Continue overnight supplemental oxygen. (2) Obstructive sleep apnea: Comment: Hypoxemia February 2021 overnight oximetry Code(s): G47.33 - Obstructive sleep apnea (adult) (pediatric) Category: Medical Plan: Results of sleep study reviewed, severe obstructive sleep apnea, patient is waiting to receive his new APAP machine. Coding Level of Care Code Est Pt Level 4 (71234) Diagnoses Nocturnal hypoxemia G47.34 Obstructive sleep apnea G47.33
== END 2024-12-16 10:49 | disposition home or self-care (01) ==
PROVIDERS: PCP Internal Medicine; Visit Provider Internal Medicine Pulmonary Disease
DX: G47.34 Idiopathic sleep related nonobstructive alveolar hypoventilation (principal); G47.33 Obstructive sleep apnea (adult) (pediatric)
CPT/HCPCS: 99214

== ENCOUNTER → 2024-12-16 10:27 | Outpatient (BNVA) | payer MEDICAID, SELFPAY | PROVIDERS: PCP Internal Medicine; Visit Provider Internal Medicine Pulmonary Disease | DX: G47.33 Obstructive sleep apnea (adult) (pediatric) (principal); G47.34 Idiopathic sleep related nonobstructive alveolar hypoventilation; Z99.89 Dependence on other enabling machines and devices | CPT/HCPCS: 99212 ==

== ENCOUNTER 2025-01-06 08:57 | Outpatient (AMB) | payer MEDICAID, SELFPAY ==
--- NOTE | 2025-01-06 09:00 | MHC.OFFVISCO ---
Intake Intake Visit Reasons: Anticoagulation Allergies No Known Allergies Allergy (Verified 01/06/25 08:57) Medication List - Last Reconciled 01/06/25 by Angeline Brower RN blood sugar diagnostic (FreeStyle Lite Strips) As directed check the BS QD blood-glucose meter (FreeStyle Lite Meter kit) As directed [CPAP RESMED NASAL MASK MEDIUM 11-14 cm H20 humidified air As directed] furosemide 60 mg (1.5 x 40 mg) PO DAILY 90 days lancets (FreeStyle Lancets) As directed check BS QD metformin 500 mg PO BID 90 days Oxygen Home Use As directed @L NC potassium chloride ER 20 mEq PO DAILY 90 days sildenafil (Viagra) 50 mg PO DAILY PRN simvastatin 10 mg PO BEDTIME warfarin 7.5 mg See Protocol PO DAILY 90 days Nursing Note INR:2.4- in therapeutic range of 2-3 Medications and supplements reviewed- no changes No changes in health, diet, medications, or supplements, Denies any signs and symptoms of bleeding or bruising or clotting. Bleeding, bruising, clotting discussed Nutritional guidance given Dose: 7.5mg x 7 F/U INR: 4 weeks Patient verbalizes understanding of instructions given Anti-Coag Initial Assessment Social Hx Patient Tobacco Use Status: Never used Tobacco Tobacco use type: Cigarette Alcohol intake frequency: does not drink Coding Level of Care Code Est Patient Level 1 Diagnoses Current use of anticoagulant therapy Z79.01 Results AMB INR Fingerstick AMB INR Fingerstick 2.4 Last Edit by Angeline Brower RN on 01/06/25 09:02 interface delay Assessment & Plan Assessment & Plan (1) Current use of anticoagulant therapy: Code(s): Z79.01 - termination clerk (current) use of anticoagulants Category: Medical
[2025-01-06 09:01] LABS: Prothrombin Time Whole Bld POC 28.2 sec (11.1-13.5); ~PT, ~INR - Anti Coag Clinic 2.4 (0.9-1.1)
== END 2025-01-06 09:31 | disposition home or self-care (01) ==
LOC: HO.ACS 08:57
PROVIDERS: PCP Internal Medicine; Visit Provider Internal Medicine
DX: Z79.01 Long term (current) use of anticoagulants (principal)

== ENCOUNTER → 2025-01-06 08:57 | Outpatient (BNVA) | payer MEDICAID, SELFPAY | PROVIDERS: PCP Internal Medicine; Visit Provider Internal Medicine | DX: I87.1 Compression of vein (principal); Z79.01 Long term (current) use of anticoagulants; Z51.81 Encounter for therapeutic drug level monitoring | CPT/HCPCS: 85610; 99211 ==

== ENCOUNTER 2025-02-03 08:57 | Outpatient (AMB) | payer MEDICAID, SELFPAY ==
--- NOTE | 2025-02-03 09:09 | MHC.OFFVISCO ---
Intake Intake Visit Reasons: Anticoagulation Allergies No Known Allergies Allergy (Verified 02/03/25 09:03) Medication List - Last Reconciled 02/03/25 by Angeline Brower RN blood sugar diagnostic (FreeStyle Lite Strips) As directed check the BS QD blood-glucose meter (FreeStyle Lite Meter kit) As directed [CPAP RESMED NASAL MASK MEDIUM 11-14 cm H20 humidified air As directed] furosemide 60 mg (1.5 x 40 mg) PO DAILY 90 days lancets (FreeStyle Lancets) As directed check BS QD metformin 500 mg PO BID 90 days Oxygen Home Use As directed @L NC potassium chloride ER 20 mEq PO DAILY 90 days sildenafil (Viagra) 50 mg PO DAILY PRN simvastatin 10 mg PO BEDTIME warfarin 7.5 mg See Protocol PO DAILY 90 days Nursing Note INR: 2.0- in therapeutic range of 2-3 Medications and supplements reviewed- no changes No changes in health, diet, medications, or supplements, Denies any signs and symptoms of bleeding or bruising or clotting. Bleeding, bruising, clotting discussed Nutritional guidance given - no greens for 2 days, will eat reds today Dose: 7.5mg x 7 F/U INR: 4 weeks Patient verbalizes understanding of instructions given Anti-Coag Initial Assessment Social Hx Patient Tobacco Use Status: Never used Tobacco Tobacco use type: Cigarette Alcohol intake frequency: does not drink Coding Level of Care Code Est Patient Level 1 Diagnoses Current use of anticoagulant therapy Z79.01 Results AMB INR Fingerstick AMB INR Fingerstick 2.0 Last Edit by Angeline Brower RN on 02/03/25 09:10 interface delay Assessment & Plan Assessment & Plan (1) Current use of anticoagulant therapy: Code(s): Z79.01 - [facility] (current) use of anticoagulants Category: Medical
[2025-02-03 09:10] LABS: Prothrombin Time Whole Bld POC 23.5 sec (11.1-13.5)
== END 2025-02-03 09:14 | disposition home or self-care (01) ==
LOC: HO.ACS 08:57
PROVIDERS: PCP Internal Medicine; Visit Provider Internal Medicine
DX: Z79.01 Long term (current) use of anticoagulants (principal)

== ENCOUNTER → 2025-02-03 08:57 | Outpatient (BNVA) | payer MEDICAID, SELFPAY | PROVIDERS: PCP Internal Medicine; Visit Provider Internal Medicine | DX: I87.1 Compression of vein (principal); Z79.01 Long term (current) use of anticoagulants; Z51.81 Encounter for therapeutic drug level monitoring | CPT/HCPCS: 85610; 99211 ==

== ENCOUNTER 2025-02-17 11:27 | Outpatient (AMB) | payer MEDICAID, SELFPAY ==
--- NOTE | 2025-02-17 11:28 | MHC.PC.OV ---
Vital Signs 02/17/25 11:29 Height 5 ft 6 in Weight 174 lb 8 oz BMI 28.2 BP 122/76 Blood Pressure Location Lt brachial Pulse 101 H Pulse Source Pulse Oximeter Temp 97.1 F Temp Source Temporal Artery Scan Pulse Oximetry (%) 96 Oxygen Delivery Method Room Air Intake Visit Reasons: annual exam Allergies No Known Allergies Allergy (Verified 02/17/25 11:46) Medication List - Last Reconciled 02/17/25 by Angie Fabian MD blood sugar diagnostic (FreeStyle Lite Strips) As directed check the BS QD blood-glucose meter (FreeStyle Lite Meter kit) As directed [CPAP RESMED NASAL MASK MEDIUM 11-14 cm H20 humidified air As directed] furosemide 60 mg (1.5 x 40 mg) PO DAILY 90 days lancets (FreeStyle Lancets) As directed check BS QD metformin 500 mg PO BID 90 days Oxygen Home Use As directed @L NC potassium chloride ER 20 mEq PO DAILY 90 days sildenafil (Viagra) 50 mg PO DAILY PRN simvastatin 10 mg PO BEDTIME warfarin 7.5 mg See Protocol PO DAILY 90 days Tobacco use date assessed: 02/17/25 Dental Screening Dental Screen Date: 02/17/25 Did you have a dental visit in the last 12 months?: No Did you have a dental problem in the last 6 months where you did not have access to dental care?: No Was dental information given to patient?: Patient has dentist [facility] Medical History Colonoscopy refused Chronic diastolic heart failure Atrial flutter 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 Mother Diabetes Son Autism Social History (Updated 02/17/25 @ 12:32 by Angie Fabian MD) Household Members: Spouse Housing: House Do you presently have visiting nurse or other home services: No Unable to assess alcohol history related to: Unknown Alcohol intake: current Alcohol intake frequency: does not drink Comment: once a week 1 shot Patient Tobacco Use Status: Never used Tobacco Tobacco use type: Cigarette e-Cigarette/Vaping Use: Never Used Second Hand Smoke Exposure: No Advance Directives Date on File: 10/16/21 service: No Current occupational status: employed Cognitive needs: No Hearing needs: No Vision needs: No Questionnaire PHQ-9 Over the last 2 weeks, how often have you been bothered by any of the following problems? 1. Little interest or pleasure in doing things: not at all 2. Feeling down, depressed, or hopeless: not at all 3. Trouble falling or staying asleep, or sleeping too much: not at all 4. Feeling tired or having little energy: not at all 5. Poor appetite or overeating: not at all 6. Feeling bad about yourself - or that you are a failure or have let yourself or your family down: not at all 7. Trouble concentrating on things, such as reading the newspaper or watching television: not at all 8. Moving or speaking so slowly that other people could have noticed. Or the opposite - being so fidgety or restless that you have been moving around a lot more than usual: not at all 9. Thoughts that you would be better off or of hurting yourself in some way: not at all Total score: 0 Depression Screening Interpretation: Negative Depression Screening Done: Yes 25118 - PHQ-9 Billing: Yes Source: Developed by Drs. Carter Lott, Haydee Stockton, Nadir Mulligan and colleagues, with an educational shalini from [employer]. Thrive Questionnaire Date Thrive assessed: 02/17/25 I am a: Patient What is your living situation today?: I have a steady place to live Within the past 12 months, did the food you bought not last and you didn't have the money to get more?: Never true Within the past 12 months, did you worry whether your food would run out before you got money to buy more?: Never true Do you have trouble paying for medicines?: No Do you have trouble getting transportation to medical appointments?: No Do you have trouble paying your heating and electricity bill?: No Do you have trouble taking care of your child, family member or friend?: No Do you have trouble with day-to-day activities such as bathing, preparing meals, shopping, managing finances, etc.?: No Are you currently unemployed and looking for a job?: No Are you interested in more education?: No Currently or been in a relationship where the following occur: No concerns reported THRIVE Score: 0 AUDIT C Alcohol Use Questionnaire (AUDIT-C) 1. How often do you have a drink containing alcohol?: 2-4 times a month 2. How many drinks containing alcohol do you have on a typical day when you are drinking?: 1 or 2 3. How often do you have six or more drinks on one occasion?: Never Total Score: 2 MIKA-7 AMB Questionnaire MIKA-7 Date MIKA - 7 assessed: 02/17/25 Feeling nervous, anxious, or on edge: 0 = Not at all Not being able to stop or control worryin = Not at all Worrying too much about different things: 0 = Not at all Trouble relaxin = Not at all Being so restless that it is hard to sit still: 0 = Not at all Becoming easily annoyed or irritable: 0 = Not at all Feeling afraid as if something awful might happen: 0 = Not at all Total MIKA-7 score (0-4 normal; 5-9 mild; 10-14 moderate; 15-21 severe): 0 Source: Developed by Drs. Carter Lott, Haydee Stockton, Nadir Mulligan and colleagues, with an educational shalini from [employer]. MIKA-7 Assessment Billing MIKA-7 Assessment Tool: MIKA-7 Assessment 68941 Review of Systems Const Denies poor appetite and Denies weakness Eyes Denies no additional complaints ENT Reports Normal hearing present, Denies dizziness, Denies nasal congestion, Denies tinnitus and Denies sore throat Card Denies chest pain, Denies syncope, Denies rapid heart rate and Denies dyspnea Resp Denies cough and Denies dyspnea GI Denies change in stool character, Reports constipation, Denies diarrhea, Denies nausea and Denies vomiting Denies dysuria and Denies urinary frequency Neuro Reports Normal hearing present, Denies confusion, Denies dizziness, Denies syncope and Denies weakness Psych Denies confusion Physical exam (Primary Care) Vital Signs: Last Vital Signs Temp 97.1 F 02/17/25 11:29 Pulse 101 H 02/17/25 11:29 BP 122/76 02/17/25 11:29 Pulse Ox 96 02/17/25 11:29 Oxygen Delivery Method Room Air 02/17/25 11:29 BMI result Body Mass Index 28.2 Tobacco/Smoking Status: Tobacco use Status Tobacco use date assessed 02/17/25 02/17/25 11:30 Patient Tobacco Use Status Never used Tobacco 02/17/25 12:32 Tobacco use type Cigarette 02/17/25 12:32 e-Cigarette/Vaping Use Never Used 02/17/25 12:32 PHQ-9: PHQ-9 Score PHQ-9: Total score 0 02/17/25 12:26 Depression Screening Interpretation: Negative Thrive Assessment: Date of Thrive Assessment Date Thrive assessed 02/17/25 02/17/25 11:30 Currently or been in a relationship where the following occur: No concerns reported Const General: No confusion Orientation/consciousness: No confusion HENMT Head: Yes normocephalic Ears: external ears normal and TM's normal bilaterally Face and sinus: Yes normal facial exam Mouth: moist mucous membranes Throat: Yes tonsils normal Eyes Conjunctivae: conjunctivae normal Pupils: Equal, round and reactive pupils present and Pupil accommodation reflex normal Direct Ophthalmoscopy: normal light reflex Neck Neck: No lymphadenopathy Thyroid: Thyroid normal Chest Chest palpation & inspection: normal inspection of the chest Resp Effort & Inspection: normal respiratory effort and no audible wheezes Auscultation: clear to auscultation bilaterally, no crackles, no wheezes and lung sounds not diminished Cardio Other: Systolic and diastolic murmur noted in the pulmonic area Peripheral pulses: radial pulses present and dorsalis pedis present GI Other: guaiac negative prostate enlarged Palpation (GI): no masses Auscultation: normal bowel sounds and normoactive bowel sounds Male General Exam: Yes normal external exam Skin General skin exam: no rashes or lesions noted Rashes: no rashes Neuro General: No confusion Cranial nerves: Yes Equal, round and reactive pupils present and Yes Normal hearing present Cognition (Neuro): normal cognition Gait exam (Neuro): Normal gait present Motor exam (neuro): 5/5 motor strength present throughout Deep tendon reflexes (DTR's): Right brachioradialis reflex intensity grade: 2+, Left brachioradialis reflex intensity grade: 2+, Right patellar reflex intensity grade: 2+ and Left patellar reflex intensity grade: 2+ Extrem General: No edema Results AMB Hemoglobin A1c AMB Hemoglobin A1c 7.1 % Last Edit by Swati Barraza CMA on 02/17/25 12:24 Results Reviewed Results Reviewed: Laboratory Last Values Hgb A1c (Clinic) 7.1 % (4.0-6.0) H 02/17/25 11:47 Coding Level of Care Code Est Pt Prev Care 40-64y(04090) Diagnoses Annual physical exam Z00.00 Obstructive sleep apnea G47.33 Paroxysmal atrial fibrillation I48.0 Atrial fibrillation type: paroxysmal Hypercholesterolemia E78.00 Congenital heart disease Q24.9 Chronic diastolic heart failure I50.32 Type 2 diabetes mellitus with hyperglycemia, without long-term current use of insulin E11.65 Diabetes mellitus terminal superintendent insulin use: without mcc use Overweight (BMI 25.0-29.9) E66.3 BPH (benign prostatic hyperplasia) N40.0 Additional Codes MIKA-7 Assessment Billing - MIKA-7 Assessment Tool: MIKA-7 Assessment 44858 ([id number]) PHQ-9 - 79530 - PHQ-9 Billing: Yes ([id number]) Assessment & Plan Assessment & Plan (1) Annual physical exam: Code(s): Z00.00 - Encounter for general adult medical examination without abnormal findings Category: Medical Plan: Patient is advised to eat healthy, keep well hydrated, keep active and have adequate sleep. (2) Obstructive sleep apnea: Comment: Hypoxemia February 2021 overnight oximetry Code(s): G47.33 - Obstructive sleep apnea (adult) (pediatric) Category: Medical Plan: Patient has been follow-up with Pulmonary and has been prescribed CPAP (3) Atrial fibrillation: Comment: Ablation 2014 Code(s): I48.91 - Unspecified atrial fibrillation Category: Medical Qualifiers: Atrial fibrillation type: paroxysmal Qualified Code(s): I48.0 - Paroxysmal atrial fibrillation Plan: Patient is on Coumadin (4) Hypercholesterolemia: Code(s): E78.00 - Pure hypercholesterolemia, unspecified Category: Medical Plan: Avoid fried foods, chicken skin, eggs, butter margarine, pastries and meat. 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 RV is the systemic ventricle. Code(s): Q24.9 - Congenital malformation of heart, unspecified Category: Medical Plan: Advised continue follow-up with cardiology (6) Chronic diastolic heart failure: Code(s): I50.32 - Chronic diastolic (congestive) heart failure Category: Medical Plan: Weigh daily on furosemide (7) Type 2 diabetes mellitus with hyperglycemia: Comment: Dr. Lowe Code(s): E11.65 - Type 2 diabetes mellitus with hyperglycemia Category: Medical Qualifiers: Diabetes mellitus terminal superintendent insulin use: without terminal superintendent use Qualified Code(s): E11.65 - Type 2 diabetes mellitus with hyperglycemia Plan: Decrease the amount of carbohydrate intake, pasta, bread, rice and potatoes are all sugar and that is aside from all the sweet stuff, remember that fruits are good but they are Sweet also. Takes metformin 500 mg twice a day (8) Overweight (BMI 25.0-29.9): Code(s): E66.3 - Overweight Category: Medical Plan: Diet and exercise (9) BPH (benign prostatic hyperplasia): Code(s): N40.0 - Benign prostatic hyperplasia without lower urinary tract symptoms Category: Medical Plan: asymtomatic Plan History of Present Illness The patient is a 54-year-old male presenting for a routine physical examination. He possesses a complex medical history with multiple chronic conditions. The patient has obstructive sleep apnea yet to be fully addressed due to barriers in obtaining a new CPAP machine, though he continues to use an older model purchased in 2011. His condition has been recognized since November, and weight troubles accompany his apnea diagnosis. Cardiovascular concerns for this patient include atrial fibrillation and previously performed heart valve replacement surgery resulting from congenital heart defects. Blood work from July revealed thrombocytopenia and a concerning BNP level, requiring continued vigilance over his cardiac function. His hypercholesterolemia remains under management with Simvastatin, maintaining an LDL level of 68. Diabetes mellitus management is challenged by elevated blood glucose levels, with an A1c level of 7.0 evident in recent tests, shedding light on a diet rich in carbohydrates. His prior blood tests have indicated proteinuria, demanding active renal monitoring. The patient leads a fairly active lifestyle, with past gym routines recently disrupted yet intending to resume exercise frequency. He acknowledges occasional alcohol consumption and refuses cigarettes and recreational drugs. There are no additional family histories of cardiovascular or oncologic conditions. Regular assessments, including eye examinations delayed by two years, are stressed, and the absence of recent flu vaccinations is noted. Health Maintenance - Tetanus vaccine up to date. - Pneumonia vaccine administered. - Recommended flu vaccine not administered this year; highlighted for future attention in August. - Encouragement for regular eye examinations (last done two years ago). Social History - Exercises moderately, intends to return to gym routine of four times weekly. - Occasionally consumes alcohol, approximately once a week. - Adheres to a carbohydrate-rich diet. - Abstains from smoking and recreational drugs. - No reported issues in functional status or housing. - Noted history of frequent physician follow-ups. Review of Systems - Cardiovascular: Denies chest pain, dizziness, or syncope. - Respiratory: Denies dyspnea or respiratory distress. - Gastrointestinal: Denies nausea, vomiting, or changes in bowel habits. - Genitourinary: Denies issues with micturition. - Musculoskeletal: Denies generalized pain. - Neurological: Denies headaches or blurred vision. - Endocrine: Denies experiencing weight gain since the last exam. Physical Exam General: Cooperative, healthy appearing, comfortable, no acute distress and well developed Orientation: Patient oriented x3 Limitations: No limitations Head: Normal to inspection Ears: Hearing grossly normal bilaterally Nose: Normal external nose present Face and sinus: Normal facial exam Eyes: Appearance normal, both eyes and all related structures Neck: Normal visual inspection and Yes full ROM Respiratory: Normal respiratory effort and able to speak in complete sentences. Clear to auscultation bilaterally Cardiovascular: Systolic and diastolic murmur in the pulmonic area GI: Normal to inspection. Soft to palpation and nontender Skin: No rashes or lesions noted Neuro: Patient oriented x3 Extremities: Normal to inspection, but noted to have some fungal infection on one foot, especially between the toes. Advised to use antifungal cream. Results Labs: - Normal blood count, mild thrombocytopenia noted. - Creatinine at 1.15, proteinuria present. - Blood glucose at 131, Hemoglobin A1c elevated at 7.0. - BNP levels marked at 684, thyroid levels normal. - LDL cholesterol level at 68. Plan Managing the multiple active diagnoses for this male patient involves continual monitoring and adjusting therapy across several areas. To oversee control of his obstructive sleep apnea, it is important to ensure his existing CPAP machine continues to be functional while encouraging procurement of a new device. For cardiac care, maintaining Coumadin therapy along with exercise compliance can enhance outcomes related to atrial fibrillation and congestive heart failure, alongside continuous Simvastatin usage for cholesterol moderation. The proposed increase in Metformin aims for improved diabetes management; emphasizing patient compliance is critical for meaningful results. I encourage this patient to engage in lifestyle counseling focused on diet, exercise, and disease risk comprehension, carefully monitoring renal function due to observed proteinuria. Patient was informed and verbally consented to the use of an ambient scribe for clinic note documentation during this visit. Discussion Notes In today's visit, I discussed thorough management strategies for this patient's overlapping chronic conditions. Suggestions included re-engagement with pulmonary providers for the optimum functioning of CPAP equipment to treat his sleep apnea and following protocol to maintain an old unit. Increased attention was given to glucose control through modified Metformin dosing, supporting better regulation for this diabetes mellitus type 2 diagnosis. Risks of alteration in therapy were reviewed, inviting patient input on treatment comfortability; I observed an understanding from the patient concerning symptoms and steps for resolution of ongoing conditions. Comprehensive reevaluations were outlined, stressing follow-up monitoring and behavioral changes alongside continuation of existing cardiac and renal care measures. Vaccination status and compliance discussed during routine checks, including flu shots. Patient Instructions - Continue using current CPAP machine and monitor for updates on insurance. - Take Metformin 1000 mg twice daily and adjust carbohydrates to lower sugar levels. - Maintain regular exercise schedule. - Take cholesterol medication, Simvastatin, as directed. - Follow daily blood pressure and glucose monitoring. - Purchase antifungal cream for feet issues, applying between toes. - Schedule and complete the recommended laboratory work by next Saturday, enforcing fasting beforehand. - Seek regular vaccination updates; ensure flu shot by August each year. - Report any troublesome symptoms, especially related to urinary habits. Orders: Orders AMB Hemoglobin A1c Today Z13.9 - Encounter for screening, unspecified Complete Blood Count Auto Diff Today I50.32 - Chronic diastolic (congestive) heart failure Comprehensive Met. Panel Today I50.32 - Chronic diastolic (congestive) heart failure Free T4 (Free Thyroxine) Today I50.32 - Chronic diastolic (congestive) heart failure Vitamin B12 and Folate Today I50.32 - Chronic diastolic (congestive) heart failure Lipid Panel Today E78.00 - Pure hypercholesterolemia, unspecified, I50.32 - Chronic diastolic (congestive) heart failure B Type Natriuretic Peptide Today I50.32 - Chronic diastolic (congestive) heart failure Thyroid Stimulating Hormone Today I50.32 - Chronic diastolic (congestive) heart failure Prostate Specific Antigen Scr Today I50.32 - Chronic diastolic (congestive) heart failure Medications: Changed From metformin 500 mg PO BID 90 days 180 caps 3RF E11.65 - Type 2 diabetes mellitus with hyperglycemia To metformin 1,000 mg PO BID 90 days 180 caps 3RF E11.65 - Type 2 diabetes mellitus with hyperglycemia
[2025-02-17 11:29] VITALS: BP 122/76; PULSE 101; TEMP 36.2; O2SAT 96; BMI 28.2
== END 2025-02-17 12:47 | disposition home or self-care (01) ==
LOC: HO.HMCH 11:27
PROVIDERS: PCP Internal Medicine; Visit Provider Internal Medicine
DX: Z00.00 Encounter for general adult medical examination without abnormal findings (principal); I48.0 Paroxysmal atrial fibrillation; I50.32 Chronic diastolic (congestive) heart failure; E11.65 Type 2 diabetes mellitus with hyperglycemia; G47.33 Obstructive sleep apnea (adult) (pediatric); E78.00 Pure hypercholesterolemia, unspecified; Q24.9 Congenital malformation of heart, unspecified; E66.3 Overweight

== ENCOUNTER → 2025-02-17 11:27 | Outpatient (BNVA) | payer MEDICAID, SELFPAY | PROVIDERS: PCP Internal Medicine; Visit Provider Internal Medicine | DX: Z00.00 Encounter for general adult medical examination without abnormal findings (principal); G47.33 Obstructive sleep apnea (adult) (pediatric); I48.0 Paroxysmal atrial fibrillation; E78.00 Pure hypercholesterolemia, unspecified; Q24.9 Congenital malformation of heart, unspecified; I50.32 Chronic diastolic (congestive) heart failure; E11.65 Type 2 diabetes mellitus with hyperglycemia; E66.3 Overweight; N40.0 Benign prostatic hyperplasia without lower urinary tract symptoms | CPT/HCPCS: 83036; 96127; 99396 ==

== ENCOUNTER 2025-02-24 07:08 | Outpatient (REF) | payer MEDICAID, SELFPAY ==
[2025-02-24 07:27] LABS: MANUAL DIFF FLAG NO
[2025-02-24 07:41] LABS: Basophils Percent Auto 0.6 % (0-2); Eosinophils Absolute Auto 0.2 X10*3/uL (0.0-0.4); Eosinophils Percent Auto 3.1 % (0-4); Hematocrit 44.6 % (42.0-52.0); Hemoglobin 14.9 g/dl (14.0-18.0); Imm Gran Abs Auto 0.02 X10*3/uL (0.00-0.03); Imm Gran Pct Auto 0.3 % (0.0-0.4); Lymphocytes Absolute Auto 1.7 X10*3/uL (1.2-4.9); Lymphocytes Percent Auto 26.7 % (20-40); Mean Corpuscular HGB Conc 33.4 g/dl (31.0-36.0); Mean Corpuscular Volume 92.9 fL (80.0-98.0); Mean Platelet Volume 11.3 fL (9.4-12.4); Monocytes Absolute Auto 0.6 X10*3/uL (0.1-1.2); Monocytes Percent Auto 8.9 % (2-11); Neutrophils Absolute Auto 3.8 x10*3/uL (2.0-8.3); Neutrophils Percent Auto 60.4 % (45-73); Platelet Count 152 X10*3/uL (160-400); Red Cell Distribution Width 13.6 % (11.0-16.0); White Blood Count 6.2 X10*3/uL (4.8-10.8)
[2025-02-24 08:10] LABS: B Type Natriuretic Peptide 843 pg/mL (<100)
[2025-02-24 08:26] LABS: Alanine Aminotransferase 22 U/L (0-40); Albumin Level 4.4 g/dL (3.5-5.0); Alkaline Phosphatase 70 U/L (39-117); Anion Gap 11 (12-20); Aspartate Amino Transferase 32 U/L (5-37); Bilirubin Total 0.8 mg/dL (0.0-1.0); Blood Urea Nitrogen 23 mg/dL (9-16); Calcium 9.6 mg/dL (8.4-10.2); Carbon Dioxide 25 mmol/L (22-29); Chloride 107 mmol/L (96-108); Cholesterol 131 mg/dL (<200); Estimated Glomerular Filt Rate > 60; Glucose Random 139 mg/dL (60-115); HDL Cholesterol 45 mg/dL (>40); LDL Cholesterol Calculated 68 mg/dL (<100); Potassium 4.4 mmol/L (3.3-5.1); Sodium 139 mmol/L (135-145); Total Protein 7.1 g/dL (6.5-8.0); Triglycerides 91 mg/dL (<150)
[2025-02-24 08:35] LABS: Folate 14.9 ng/mL (> or = 4.0); Prostate Specific Antigen Scr 3.68 ng/mL (<0.05-4.0); Vitamin B12 828 pg/mL (200-900)
[2025-02-24 08:59] LABS: Free T4 (Free Thyroxine) 1.19 ng/dL (0.71-1.85); Thyroid Stimulating Hormone 1.04 uIU/mL (0.32-4.0)
[2025-02-24 11:27] LABS: Appearance Urine Clear; Color Urine Yellow; Glucose Urine UA Negative (Negative); Leukocyte Esterase Urine Negative (Negative); Nitrite Urine Negative (Negative); Specific Gravity - Urine 1.015 (1.005-1.025); Urine Blood Negative (Negative); Urine Ketones Negative (Negative); Urine Protein Trace mg/dL (Neg-Trace)
[2025-02-24 11:55] LABS: Creatinine Urine 105.17 mg/dL
== END 2025-02-24 07:09 | disposition home or self-care (01) ==
LOC: HO.LAB 07:08
PROVIDERS: PCP Internal Medicine; Visit Provider Internal Medicine
DX: I50.32 Chronic diastolic (congestive) heart failure (principal); E78.00 Pure hypercholesterolemia, unspecified; E11.65 Type 2 diabetes mellitus with hyperglycemia; R30.0 Dysuria
CPT/HCPCS: 36415; 80053; 80061; 81003; 82570; 82607; 82746; 83880; 84153; 84439; 84443; 85025

== ENCOUNTER 2025-03-03 09:05 | Outpatient (AMB) | payer MEDICAID, SELFPAY ==
--- NOTE | 2025-03-03 09:13 | MHC.OFFVISCO ---
Intake Intake Visit Reasons: Anticoagulation Allergies No Known Allergies Allergy (Verified 03/03/25 09:06) Medication List - Last Reconciled 03/03/25 by Angeline Brower RN blood sugar diagnostic (FreeStyle Lite Strips) As directed check the BS QD blood-glucose meter (FreeStyle Lite Meter kit) As directed [CPAP RESMED NASAL MASK MEDIUM 11-14 cm H20 humidified air As directed] furosemide 60 mg (1.5 x 40 mg) PO DAILY 90 days lancets (FreeStyle Lancets) As directed check BS QD metformin 1,000 mg PO BID 90 days Oxygen Home Use As directed @L NC potassium chloride ER 20 mEq PO DAILY 90 days sildenafil (Viagra) 50 mg PO DAILY PRN simvastatin 10 mg PO BEDTIME warfarin 7.5 mg See Protocol PO DAILY 90 days Nursing Note INR 1.7?? out of therapeutic range- 2-3 Medications and supplements reviewed Patient status: pt denies missed dose Medications or supplements: metformin increased to 1000mg bid- no interacton per micromedex Diet: had some greens Denies any signs and symptoms of bleeding or clotting or unusual bruising Bleeding, bruising, clotting discussed Nutritional guidance given: no greens for 2-3 days Dose: 11.25mg today then cont reg 7.5mg x 7 F/U INR Date : 2 weeks? Patient verbalizing understanding of instructions given. Anti-Coag Initial Assessment Social Hx Patient Tobacco Use Status: Never used Tobacco Tobacco use type: Cigarette alcohol intake: current Alcohol intake frequency: does not drink Coding Level of Care Code Est Patient Level 1 Diagnoses Current use of anticoagulant therapy Z79.01 Assessment & Plan Assessment & Plan (1) Current use of anticoagulant therapy: Code(s): Z79.01 - terminal carman (current) use of anticoagulants Category: Medical
[2025-03-03 09:14] LABS: Prothrombin Time Whole Bld POC 20.2 sec (11.1-13.5); ~PT, ~INR - Anti Coag Clinic 1.7 (0.9-1.1)
== END 2025-03-03 09:20 | disposition home or self-care (01) ==
LOC: HO.ACS 09:05
PROVIDERS: PCP Internal Medicine; Visit Provider Internal Medicine Medical Oncology
DX: Z79.01 Long term (current) use of anticoagulants (principal)

== ENCOUNTER → 2025-03-03 09:05 | Outpatient (BNVA) | payer MEDICAID, SELFPAY | PROVIDERS: PCP Internal Medicine; Visit Provider Internal Medicine Medical Oncology | DX: I87.1 Compression of vein (principal); Z51.81 Encounter for therapeutic drug level monitoring; Z79.01 Long term (current) use of anticoagulants | CPT/HCPCS: 85610; 99211 ==

== ENCOUNTER 2025-03-17 09:10 | Outpatient (AMB) | payer MEDICAID, SELFPAY ==
[2025-03-17 09:19] LABS: Prothrombin Time Whole Bld POC 20.6 sec (11.1-13.5); ~PT, ~INR - Anti Coag Clinic 1.7 (0.9-1.1)
--- NOTE | 2025-03-17 09:23 | MHC.OFFVISCO ---
Intake Intake Visit Reasons: Anticoagulation Allergies No Known Allergies Allergy (Verified 03/17/25 09:12) Medication List - Last Reconciled 03/17/25 by Carol Garcia RN blood sugar diagnostic (FreeStyle Lite Strips) As directed check the BS QD blood-glucose meter (FreeStyle Lite Meter kit) As directed [CPAP RESMED NASAL MASK MEDIUM 11-14 cm H20 humidified air As directed] furosemide 60 mg (1.5 x 40 mg) PO DAILY 90 days lancets (FreeStyle Lancets) As directed check BS QD metformin 1,000 mg PO BID 90 days Oxygen Home Use As directed @L NC potassium chloride ER 20 mEq PO DAILY 90 days sildenafil (Viagra) 50 mg PO DAILY PRN simvastatin 10 mg PO BEDTIME warfarin 7.5 mg See Protocol PO DAILY 90 days Nursing Note NO MISSED DOSES,CP,SOB,DIET/MED CHANGES OR SX OF BLEEDING. INCREASE WEEKLY DOSE AND FOLLOW-UP IN 1 WEEK NO GREENS 1-2 DAYS GOOD EUNDERSTANDING OF DOSING INSTR. Anti-Coag Initial Assessment Social Hx Patient Tobacco Use Status: Never used Tobacco Tobacco use type: Cigarette alcohol intake: current Alcohol intake frequency: does not drink Coding Level of Care Code Est Patient Level 1 Diagnoses Current use of anticoagulant therapy Z79.01 Assessment & Plan Assessment & Plan (1) Current use of anticoagulant therapy: Code(s): Z79.01 - care home (current) use of anticoagulants Category: Medical
== END 2025-03-17 09:25 | disposition home or self-care (01) ==
LOC: HO.ACS 09:10
PROVIDERS: PCP Internal Medicine; Visit Provider Internal Medicine Medical Oncology
DX: Z79.01 Long term (current) use of anticoagulants (principal)

== ENCOUNTER → 2025-03-17 09:10 | Outpatient (BNVA) | payer MEDICAID, SELFPAY | PROVIDERS: PCP Internal Medicine; Visit Provider Internal Medicine Medical Oncology | DX: I87.1 Compression of vein (principal); Z79.01 Long term (current) use of anticoagulants; Z51.81 Encounter for therapeutic drug level monitoring | CPT/HCPCS: 85610; 99211 ==

== ENCOUNTER 2025-03-24 09:03 | Outpatient (AMB) | payer MEDICAID, SELFPAY ==
[2025-03-24 09:12] LABS: Prothrombin Time Whole Bld POC 22.4 sec (11.1-13.5); ~PT, ~INR - Anti Coag Clinic 1.9 (0.9-1.1)
--- NOTE | 2025-03-24 09:19 | MHC.OFFVISCO ---
Intake Intake Visit Reasons: Anticoagulation Allergies No Known Allergies Allergy (Verified 03/24/25 09:06) Medication List - Last Reconciled 03/24/25 by Carol Garcia RN blood sugar diagnostic (FreeStyle Lite Strips) As directed check the BS QD blood-glucose meter (FreeStyle Lite Meter kit) As directed [CPAP RESMED NASAL MASK MEDIUM 11-14 cm H20 humidified air As directed] furosemide 60 mg (1.5 x 40 mg) PO DAILY 90 days lancets (FreeStyle Lancets) As directed check BS QD metformin 1,000 mg PO BID 90 days Oxygen Home Use As directed @L NC potassium chloride ER 20 mEq PO DAILY 90 days sildenafil (Viagra) 50 mg PO DAILY PRN simvastatin 10 mg PO BEDTIME warfarin 7.5 mg See Protocol PO DAILY 90 days Nursing Note NO MISSED DOSES,CP,SOB,DIET/MED CHANGES,FALLS OR SX OF BLEEDING. BOOST TO 15MGM TODAY THEN RESUME PRESENT DOSE AND FOLLOW UP IN 1 WEEK. NO GREENS 2-3 DAYS. GOOD UNDERSTANDING OF DOSING INSTR. Anti-Coag Initial Assessment Social Hx Patient Tobacco Use Status: Never used Tobacco Tobacco use type: Cigarette alcohol intake: current Alcohol intake frequency: does not drink Coding Level of Care Code Est Patient Level 1 Diagnoses Current use of anticoagulant therapy Z79.01 Assessment & Plan Assessment & Plan (1) Current use of anticoagulant therapy: Code(s): Z79.01 - sport intern (current) use of anticoagulants Category: Medical
== END 2025-03-24 09:24 | disposition home or self-care (01) ==
LOC: HO.ACS 09:03
PROVIDERS: PCP Internal Medicine; Visit Provider Internal Medicine Medical Oncology
DX: Z79.01 Long term (current) use of anticoagulants (principal)

== ENCOUNTER → 2025-03-24 09:03 | Outpatient (BNVA) | payer MEDICAID, SELFPAY | PROVIDERS: PCP Internal Medicine; Visit Provider Internal Medicine Medical Oncology | DX: I87.1 Compression of vein (principal); Z79.01 Long term (current) use of anticoagulants; Z51.81 Encounter for therapeutic drug level monitoring | CPT/HCPCS: 85610; 99211 ==

== ENCOUNTER 2025-03-31 09:16 | Outpatient (AMB) | payer MEDICAID, SELFPAY ==
--- NOTE | 2025-03-31 09:27 | MHC.OFFVISCO ---
Intake Intake Visit Reasons: Anticoagulation Allergies No Known Allergies Allergy (Verified 03/31/25 09:23) Medication List - Last Reconciled 03/31/25 by Angeline Brower RN blood sugar diagnostic (FreeStyle Lite Strips) As directed check the BS QD blood-glucose meter (FreeStyle Lite Meter kit) As directed [CPAP RESMED NASAL MASK MEDIUM 11-14 cm H20 humidified air As directed] furosemide 60 mg (1.5 x 40 mg) PO DAILY 90 days lancets (FreeStyle Lancets) As directed check BS QD metformin 1,000 mg PO BID 90 days Oxygen Home Use As directed @L NC potassium chloride ER 20 mEq PO DAILY 90 days sildenafil (Viagra) 50 mg PO DAILY PRN simvastatin 10 mg PO BEDTIME warfarin 7.5 mg See Protocol PO DAILY 90 days Nursing Note INR: 2.3- in therapeutic range of 2-3 Medications and supplements reviewed No changes in health, diet, medications, or supplements, Denies any signs and symptoms of bleeding or bruising or clotting. Bleeding, bruising, clotting discussed Nutritional guidance given Dose: 11.25mg x 1, 7.5mg x 6 F/U INR: 1 week Patient verbalizes understanding of instructions given pt with c.o gout - large toe, states not taking gout meds but using pomegranet juice and prn tylenol Anti-Coag Initial Assessment Social Hx Patient Tobacco Use Status: Never used Tobacco Tobacco use type: Cigarette alcohol intake: current Alcohol intake frequency: does not drink Coding Level of Care Code Est Patient Level 1 Diagnoses Current use of anticoagulant therapy Z79.01 Results AMB INR Fingerstick AMB INR Fingerstick 2.3 Last Edit by Angeline Brower RN on 03/31/25 09:30 interface delay Assessment & Plan Assessment & Plan (1) Current use of anticoagulant therapy: Code(s): 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
[2025-03-31 09:29] LABS: Prothrombin Time Whole Bld POC 27.3 sec (11.1-13.5); ~PT, ~INR - Anti Coag Clinic 2.3 (0.9-1.1)
== END 2025-03-31 09:35 | disposition home or self-care (01) ==
LOC: HO.ACS 09:16
PROVIDERS: PCP Internal Medicine; Visit Provider Internal Medicine Medical Oncology
DX: Z79.01 Long term (current) use of anticoagulants (principal)

== ENCOUNTER → 2025-03-31 09:16 | Outpatient (BNVA) | payer MEDICAID, SELFPAY | PROVIDERS: PCP Internal Medicine; Visit Provider Internal Medicine Medical Oncology | DX: I87.1 Compression of vein (principal); Z51.81 Encounter for therapeutic drug level monitoring; Z79.01 Long term (current) use of anticoagulants | CPT/HCPCS: 85610; 99211 ==

== ENCOUNTER 2025-04-07 13:03 | Outpatient (AMB) | payer MEDICAID, SELFPAY ==
[2025-04-07 13:12] LABS: Prothrombin Time Whole Bld POC 27.8 sec (11.1-13.5); ~PT, ~INR - Anti Coag Clinic 2.3 (0.9-1.1)
--- NOTE | 2025-04-07 13:14 | MHC.OFFVISCO ---
Intake Intake Visit Reasons: Anticoagulation Allergies No Known Allergies Allergy (Verified 04/07/25 13:06) Medication List - Last Reconciled 04/07/25 by Carol Garcia RN blood sugar diagnostic (FreeStyle Lite Strips) As directed check the BS QD blood-glucose meter (FreeStyle Lite Meter kit) As directed [CPAP RESMED NASAL MASK MEDIUM 11-14 cm H20 humidified air As directed] furosemide 60 mg (1.5 x 40 mg) PO DAILY 90 days lancets (FreeStyle Lancets) As directed check BS QD metformin 1,000 mg PO BID 90 days Oxygen Home Use As directed @L NC potassium chloride ER 20 mEq PO DAILY 90 days sildenafil (Viagra) 50 mg PO DAILY PRN simvastatin 10 mg PO BEDTIME warfarin 7.5 mg See Protocol PO DAILY 90 days Nursing Note NO CP,SOB,DIET/MED CHANGES,FALLS OR SX OF BLEEDING. CONTINUE PRESENT DOSE AND FOLLOW-UP IN 2 WEEKS. GOOD UNDERSTANDING OF DOSING INSTR. 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
== END 2025-04-07 13:21 | disposition home or self-care (01) ==
LOC: HO.ACS 13:03
PROVIDERS: PCP Internal Medicine; Visit Provider Internal Medicine Medical Oncology
DX: Z79.01 Long term (current) use of anticoagulants (principal)

== ENCOUNTER → 2025-04-07 13:03 | Outpatient (BNVA) | payer MEDICAID, SELFPAY | PROVIDERS: PCP Internal Medicine; Visit Provider Internal Medicine Medical Oncology | DX: I87.1 Compression of vein (principal); Z79.01 Long term (current) use of anticoagulants; Z51.81 Encounter for therapeutic drug level monitoring | CPT/HCPCS: 85610; 99211 ==

== ENCOUNTER 2025-04-21 08:55 | Outpatient (AMB) | payer MEDICAID, SELFPAY ==
--- NOTE | 2025-04-21 09:03 | MHC.OFFVISCO ---
Intake Intake Visit Reasons: Anticoagulation Allergies No Known Allergies Allergy (Verified 04/21/25 09:00) Medication List - Last Reconciled 04/21/25 by Angeline Brower RN blood sugar diagnostic (FreeStyle Lite Strips) As directed check the BS QD blood-glucose meter (FreeStyle Lite Meter kit) As directed [CPAP RESMED NASAL MASK MEDIUM 11-14 cm H20 humidified air As directed] furosemide 60 mg (1.5 x 40 mg) PO DAILY 90 days lancets (FreeStyle Lancets) As directed check BS QD metformin 1,000 mg PO BID 90 days Oxygen Home Use As directed @L NC potassium chloride ER 20 mEq PO DAILY 90 days sildenafil (Viagra) 50 mg PO DAILY PRN simvastatin 10 mg PO BEDTIME warfarin 7.5 mg See Protocol PO DAILY 90 days Nursing Note INR 1.9-?? out of therapeutic range of 2-3 Medications and supplements reviewed Patient status: pt may have had more greens, goes to gym Medications or supplements: no changes Diet: same Denies any signs and symptoms of bleeding or clotting or unusual bruising Bleeding, bruising, clotting discussed Nutritional guidance given: no greens for 2 days, eat a red today Dose: [] F/U INR Date : 2 weeks?? Patient verbalizing understanding of instructions given. Anti-Coag Initial Assessment Social Hx Patient Tobacco Use Status: Never used Tobacco Tobacco use type: Cigarette alcohol intake: current Alcohol intake frequency: does not drink Questionnaires HAS-BLED Does the patient had uncontrolled Hypertension?: No Does the patient have renal disease?: No Does the patient have liver disease?: No Does the patient have a history of stroke?: No Has the patient had major bleeding or predisposition to bleeding?: No Does the patient have labile INRs?: No Is the patient over 65 years of age?: No Is the patient on medications that gives them a predisposition to bleeding?: Yes Does the patient use alcohol?: Yes HAS-BLED Score: 2 CHADSVASC Age: <65 Gender: Male Does the patient have a history of CHF?: Yes Does the patient have a history of Hypertension?: No Does the patient have a history of Stroke/TIA/Thromboembolism?: No Does the patient have a history of Vascular Disease (prior VA, PAD or aortic plaque)?: Yes Does the patient have a history of Diabetes?: Yes CHADS VACS Score: 3 Gurwinder Prediction Score Rsk VTE Active Cancer: No Previous VTE, excluding superficial vein thrombosis: No Reduced mobility: No Already known Thrombophilic Condition: No With-in last month Trauma and/or Surgery: No Elderly 70 year or older: No Heart and/or Respiratory Failure: Yes Acute Myocardial infarction and/or Ischemic Stroke: No Acute Infection and/or Rheumatologic Disorder: No Obesity (BMI 30 or greater): No Ongoing Hormonal Treatment: No Score: 1 Gurwinder Score less than 4; Low Risk of VTE Gurwinder Score 4 or greater; High Risk of VTE Coding Level of Care Code Est Patient Level 1 Diagnoses Current use of anticoagulant therapy Z79.01 Assessment & Plan Assessment & Plan (1) Current use of anticoagulant therapy: 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
[2025-04-21 09:04] LABS: Prothrombin Time Whole Bld POC 22.9 sec (11.1-13.5); ~PT, ~INR - Anti Coag Clinic 1.9 (0.9-1.1)
== END 2025-04-21 09:14 | disposition home or self-care (01) ==
LOC: HO.ACS 08:55
PROVIDERS: PCP Internal Medicine; Visit Provider Internal Medicine Medical Oncology
DX: Z79.01 Long term (current) use of anticoagulants (principal)

== ENCOUNTER → 2025-04-21 08:55 | Outpatient (BNVA) | payer MEDICAID, SELFPAY | PROVIDERS: PCP Internal Medicine; Visit Provider Internal Medicine Medical Oncology | DX: I87.1 Compression of vein (principal); Z79.01 Long term (current) use of anticoagulants; Z51.81 Encounter for therapeutic drug level monitoring | CPT/HCPCS: 85610; 99211 ==

== ENCOUNTER 2025-05-05 09:04 | Outpatient (AMB) | payer MEDICAID, SELFPAY ==
--- NOTE | 2025-05-05 09:16 | MHC.OFFVISCO ---
Intake Intake Visit Reasons: Anticoagulation Allergies No Known Allergies Allergy (Verified 05/05/25 09:12) Medication List - Last Reconciled 05/05/25 by Angeline Brower RN blood sugar diagnostic (FreeStyle Lite Strips) As directed check the BS QD blood-glucose meter (FreeStyle Lite Meter kit) As directed [CPAP RESMED NASAL MASK MEDIUM 11-14 cm H20 humidified air As directed] furosemide 60 mg (1.5 x 40 mg) PO DAILY 90 days lancets (FreeStyle Lancets) As directed check BS QD metformin 1,000 mg PO BID 90 days Oxygen Home Use As directed @L NC potassium chloride ER 20 mEq PO DAILY 90 days sildenafil (Viagra) 50 mg PO DAILY PRN simvastatin 10 mg PO BEDTIME warfarin 7.5 mg See Protocol PO DAILY 90 days Nursing Note INR 1.6-? out of therapeutic range of 2-3 pt denies missed dose Medications and supplements reviewed Patient status: no c.o, pt unsure why inr subtherapeutic, denies increased activity of dietary changes Medications or supplements: no changes Diet: same Denies any signs and symptoms of bleeding or clotting or unusual bruising Bleeding, bruising, clotting discussed Nutritional guidance given: no greens for 3 days, eat reds to raise Dose: 11.25mg today and tomm then increase weekly dosing to 11.25mg x 2, 7.5mg x 5 F/U INR Date : 1 week Patient verbalizing understanding of instructions given. 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
[2025-05-05 09:17] LABS: Prothrombin Time Whole Bld POC 19.8 sec (11.1-13.5); ~PT, ~INR - Anti Coag Clinic 1.6 (0.9-1.1)
== END 2025-05-05 09:24 | disposition home or self-care (01) ==
LOC: HO.ACS 09:04
PROVIDERS: PCP Internal Medicine; Visit Provider Internal Medicine Medical Oncology
DX: Z79.01 Long term (current) use of anticoagulants (principal)

== ENCOUNTER → 2025-05-05 09:04 | Outpatient (BNVA) | payer SELFPAY | PROVIDERS: PCP Internal Medicine; Visit Provider Internal Medicine Medical Oncology | DX: Z79.01 Long term (current) use of anticoagulants (principal) | CPT/HCPCS: 85610; 99211 ==

== ENCOUNTER 2025-05-12 08:56 | Outpatient (AMB) | payer SELFPAY ==
--- NOTE | 2025-05-12 09:00 | MHC.OFFVISCO ---
Intake Intake Visit Reasons: Anticoagulation Allergies No Known Allergies Allergy (Verified 05/12/25 08:57) Medication List - Last Reconciled 05/12/25 by Angeline Brower RN blood sugar diagnostic (FreeStyle Lite Strips) As directed check the BS QD blood-glucose meter (FreeStyle Lite Meter kit) As directed [CPAP RESMED NASAL MASK MEDIUM 11-14 cm H20 humidified air As directed] furosemide 60 mg (1.5 x 40 mg) PO DAILY 90 days lancets (FreeStyle Lancets) As directed check BS QD metformin 1,000 mg PO BID 90 days Oxygen Home Use As directed @L NC potassium chloride ER 20 mEq PO DAILY 90 days sildenafil (Viagra) 50 mg PO DAILY PRN simvastatin 10 mg PO BEDTIME warfarin 7.5 mg See Protocol PO DAILY 90 days Nursing Note INR: 2.3- in therapeutic range of 2-3 Medications and supplements reviewed- no changes No changes in health, diet, medications, or supplements, Denies any signs and symptoms of bleeding or bruising or clotting. Bleeding, bruising, clotting discussed Nutritional guidance given Dose: cont same dosing- 11.25mg x 2, 7.5mg cx 5 F/U INR: 2 weeks Patient verbalizes understanding of instructions given Anti-Coag Initial Assessment Social Hx Patient Tobacco Use Status: Never used Tobacco Tobacco use type: Cigarette alcohol intake: current Alcohol intake frequency: does not drink Coding Level of Care Code Est Patient Level 1 Diagnoses Current use of anticoagulant therapy Z79.01 Results AMB INR Fingerstick AMB INR Fingerstick 2.3 Last Edit by Angeline Brower RN on 05/12/25 09:02 interface delay Assessment & Plan Assessment & Plan (1) Current use of anticoagulant therapy: Code(s): 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
[2025-05-12 09:02] LABS: Prothrombin Time Whole Bld POC 27.9 sec (11.1-13.5); ~PT, ~INR - Anti Coag Clinic 2.3 (0.9-1.1)
== END 2025-05-12 09:11 | disposition home or self-care (01) ==
LOC: HO.ACS 08:56
PROVIDERS: PCP Internal Medicine; Visit Provider Internal Medicine Medical Oncology
DX: Z79.01 Long term (current) use of anticoagulants (principal)

== ENCOUNTER → 2025-05-12 08:56 | Outpatient (BNVA) | payer SELFPAY | PROVIDERS: PCP Internal Medicine; Visit Provider Internal Medicine Medical Oncology | DX: Z79.01 Long term (current) use of anticoagulants (principal) | CPT/HCPCS: 85610; 99211 ==

== ENCOUNTER 2025-05-26 08:58 | Outpatient (AMB) | payer MEDICARE, SELFPAY ==
[2025-05-26 09:25] LABS: Prothrombin Time Whole Bld POC 25.7 sec (11.1-13.5); ~PT, ~INR - Anti Coag Clinic 2.1 (0.9-1.1)
--- NOTE | 2025-05-26 09:30 | MHC.OFFVISCO ---
Intake Intake Visit Reasons: Anticoagulation Allergies No Known Allergies Allergy (Verified 05/26/25 09:20) Medication List - Last Reconciled 05/26/25 by Carol Garcia RN blood sugar diagnostic (FreeStyle Lite Strips) As directed check the BS QD blood-glucose meter (FreeStyle Lite Meter kit) As directed [CPAP RESMED NASAL MASK MEDIUM 11-14 cm H20 humidified air As directed] furosemide 60 mg (1.5 x 40 mg) PO DAILY 90 days lancets (FreeStyle Lancets) As directed check BS QD metformin 1,000 mg PO BID 90 days Oxygen Home Use As directed @L NC potassium chloride ER 20 mEq PO DAILY 90 days sildenafil (Viagra) 50 mg PO DAILY PRN simvastatin 10 mg PO BEDTIME warfarin 7.5 mg See Protocol PO DAILY 90 days Nursing Note NO CP,SOB,DIET/MED CHABGES,FALLS OR SX OF BLEEDING. CONTINUE PRESENT DOSING AND FOLLOW-UP IN 3 WEEKS GOOD UNDERSTANDING OF DOSING INSTR. 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
== END 2025-05-26 09:32 | disposition home or self-care (01) ==
LOC: HO.ACS 08:58
PROVIDERS: PCP Internal Medicine; Visit Provider Internal Medicine Medical Oncology
DX: Z79.01 Long term (current) use of anticoagulants (principal)

== ENCOUNTER → 2025-05-26 08:58 | Outpatient (BNVA) | payer SELFPAY | PROVIDERS: PCP Internal Medicine; Visit Provider Internal Medicine Medical Oncology | DX: Z79.01 Long term (current) use of anticoagulants (principal) | CPT/HCPCS: 85610; 99211 ==

== ENCOUNTER 2025-06-16 08:52 | Outpatient (AMB) | payer SELFPAY ==
--- NOTE | 2025-06-16 09:00 | MHC.OFFVISCO ---
Intake Intake Visit Reasons: Anticoagulation Allergies No Known Allergies Allergy (Verified 06/16/25 08:56) Medication List - Last Reconciled 06/16/25 by Angeline Brower RN blood sugar diagnostic (FreeStyle Lite Strips) As directed check the BS QD blood-glucose meter (FreeStyle Lite Meter kit) As directed [CPAP RESMED NASAL MASK MEDIUM 11-14 cm H20 humidified air As directed] furosemide 60 mg (1.5 x 40 mg) PO DAILY 90 days lancets (FreeStyle Lancets) As directed check BS QD metformin 1,000 mg PO BID 90 days Oxygen Home Use As directed @L NC potassium chloride ER 20 mEq PO DAILY 90 days sildenafil (Viagra) 50 mg PO DAILY PRN simvastatin 10 mg PO BEDTIME warfarin 7.5 mg See Protocol PO DAILY 90 days Nursing Note INR: 2.2- in therapeutic range of 2-3 Medications and supplements reviewed- no changes No changes in health, diet, medications, or supplements, Denies any signs and symptoms of bleeding or bruising or clotting. Bleeding, bruising, clotting discussed Nutritional guidance given Dose: 11.25mg x 2, 7.5mg x 5 F/U INR: 4 weeks Patient verbalizes understanding of instructions given Anti-Coag Initial Assessment Social Hx Patient Tobacco Use Status: Never used Tobacco Tobacco use type: Cigarette alcohol intake: current Alcohol intake frequency: does not drink Coding Level of Care Code Est Patient Level 1 Diagnoses Current use of anticoagulant therapy Z79.01 Results AMB INR Fingerstick AMB INR Fingerstick 2.2 Last Edit by Angeline Brower RN on 06/16/25 09:02 interface delay Assessment & Plan Assessment & Plan (1) Current use of anticoagulant therapy: Code(s): 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
[2025-06-16 09:01] LABS: Prothrombin Time Whole Bld POC 26.9 sec (11.1-13.5); ~PT, ~INR - Anti Coag Clinic 2.2 (0.9-1.1)
--- OUTSIDE RECORDS SUMMARY | 2025-06-16 09:15 | XMS_ITS | Clinical Summary ---
Author Organization [facility] sp[facility] Address [address] [place] [address] Phone Care Team Providers Care Magazine Filler Name Role Phone Angie Fabian MD Primary Care Provider [phone] Angie Fabian MD Unavailable [phone] Angie Fabian MD Unavailable [phone] Josue Dukes MD Unavailable [phone] Huey Romero MD Unavailable Josue Dukes MD Unavailable [phone] Medications furosemide (Lasix) 40 mg tablet Dose: 40 mg, Dose Amount: 1 tab 06/04/2022 Active metFORMIN (Glucophage) 500 mg tablet Special Instructions: TAKE ONE TABLET BY MOUTH TWICE A DAY 06/04/2022 Active simvastatin (Zocor) 5 mg tablet Special Instructions: TAKE ONE TABLET BY MOUTH AT BEDTIME 06/04/2022 Active warfarin (Coumadin) 7.5 mg tablet See Instructions, Special Instructions: 3.75mg // 7.5mg /// adjust per IRN, Dispense Quantity: 60 EA, Entered: 09/04/15 11:53:53 EDT, [facility] 09/04/2015 Active Social History Tobacco Use Types Packs/Day Years Used Date Smoking Tobacco: Never Assessed Sex and Gender Information Value Date Recorded Sex Assigned at Not on file Legal Sex Male 9:37 AM EDT Gender Identity Not on file Sexual Orientation Not on file Last Filed Vital Signs Vital Sign Reading Time Taken Comments Blood Pressure 89/67 08/02/2022 5:30 PM EDT Pulse 80 08/02/2022 5:30 PM EDT Temperature - - Respiratory Rate 15 08/02/2022 5:30 PM EDT Oxygen Saturation 96% 08/02/2022 5:30 PM EDT Inhaled Oxygen Concentration - - Weight 82.6 kg (182 lb 1.6 oz) 08/01/2022 12:36 PM EDT Height 168 cm (5' 6.14 ) 08/01/2022 12:36 PM EDT Body Mass Index 29.27 08/01/2022 12:36 PM EDT Plan of Treatment Health Maintenance Due Date Last Done Comments HIV Screening 1969 MMR Vaccines (1 of 1 - Stand ruben series) 1970 DTaP/Tdap/Td Vaccines (1 - Tdap) 1976 Varicella Vaccines (1 of 2 - 13+ 2-dose series) 1982 Hepatitis C Screening 1987 Hepatitis B Vaccines (1 of 3 - 19+ 3-dose series) 1988 COVID-19 Vaccine (2023-2 5 season) 2024 Influenza Vaccine (#1) 2025 HIB Vaccines Aged Out No longer eligi ble based on patient's age to complete this topic HPV Vaccines Aged Out No longer eligi ble based on patient's age to complete this topic Hepatitis A Vaccines Aged Out No long er eligible based on patient's age to complete this topic IPV Vaccines Aged Out No longer eligi ble based on patient's age to complete this topic Meningococcal B Vaccine Aged Out No l onger eligible based on patient's age to complete this topic Meningococcal Vaccine Aged Out No ellen riki eligible based on patient's age to complete this topic Rotavirus Vaccines Aged Out No longer eligible based on patient's age to complete this topic Medical Devices Implanted Type Area Saw Setter Device Identifier Shelf Expiration Date Model / Serial / Lot Lead Rv Implanted: by Kobe Horne MD (Quantity not on file) Cardiac Lead Heart Fare Motion 2088TC-58 / [id number] / Lead Ra Implanted: by Kobe Horne MD (Quantity not on file) Cardiac Lead Heart Medtronic Medtronic 4076- 58 cm / [id number] / Lead Lv Implanted: by Kobe Horne MD (Quantity not on file) Cardiac Lead Heart Medtronic Medtronic Ability 4296-88 / [id number] / Pacemaker Implanted: (Quantity not on file) Cardiac Pacemaker Heart Medtronic Medtronic [id number] Solara GAME TESTER-P / [id number] / Care Teams Magazine Filler Relationship Specialty Start Date End Date Angie Fabian MD [address] [place] [address] PCP - General 03/27/13 Angie Fabian MD [address] [place] [address] PCP - Clinical PCP 11/05/11 Angie Fabian MD [address] [place] [address] PCP - Insurance PCP 11/05/11 Josue Dukes MD [address] [place] [id number] Associate Attending Cardiology 09/14/22 Huey Romero MD [address] [place] [address] HC CV Surgeon 04/25/24 Josue Dukes MD [address] [place] [address] HC Civil Clerk 04/25/24
== END 2025-06-16 09:55 | disposition home or self-care (01) ==
LOC: HO.ACS 08:52
PROVIDERS: PCP Internal Medicine; Visit Provider Internal Medicine Medical Oncology
DX: Z79.01 Long term (current) use of anticoagulants (principal)

== ENCOUNTER → 2025-06-16 08:52 | Outpatient (BNVA) | payer SELFPAY | PROVIDERS: PCP Internal Medicine; Visit Provider Internal Medicine Medical Oncology | DX: I87.1 Compression of vein (principal); Z79.01 Long term (current) use of anticoagulants; Z51.81 Encounter for therapeutic drug level monitoring | CPT/HCPCS: 85610; 99211 ==